=== PATIENT | female | born 1965 | race Caucasian/White ===

== ENCOUNTER → 2017-06-11 | Outpatient (CLI) | payer MEDICARE, BC, MEDICAID, SELFPAY | PROVIDERS: Family Provider Internal Medicine Adolescent Medicine; Visit Provider Anesthesiology Pain Medicine | DX: M25.552 Pain in left hip (principal); R20.2 Paresthesia of skin | CPT/HCPCS: 73502 ==

== ENCOUNTER → 2017-08-20 12:56 | Outpatient (CLI) | payer MEDICARE, BC, MEDICAID, SELFPAY ==
--- NOTE | 2017-08-20 13:05 | MR_ITS ---
MR thoracic spine wo con HISTORY: Back pain from top to bottom. Prior cervical fusion ITS.REASON: POST LAMINECTOMY SYNDROME ORDERING PHYSICIAN: Chinmay Negron MD PATIENT AGE: 52 years COMPARISON: None TECHNIQUE: Standard multiplanar multiecho sequences are performed without contrast. 3-D MIP and myelographic images are also rendered and reviewed FINDINGS: There is normal alignment. There is multilevel degenerative disc disease from T2 to T12 with decrease in the disc spaces, disc desiccation, and multilevel Schmorl's nodes and T7-T12. T2-T3: Degenerative disc disease with mild concentric bulging disc T3-T4: Degenerative disc disease with mild concentric bulging disc. T4-T5 degenerative disc disease. T5-T6: Degenerative disc disease with mild bulging disc. T6-T7: Degenerative disc disease with bulging disc and tiny right paracentral disc protrusion abutting the cord without compression. T7-T8: Mild degenerative disc disease. T8-T9: Degenerative disc disease. T9-T10 T11-T12 and T12-L1 degenerative disc disease. No fracture or dislocation. No bony destructive process. IMPRESSION: 1. Multilevel thoracic spondylosis with degenerative disc disease and mild bulging disc. Please see above for detailed description at each level. 2. Minimal right paracentral disc protrusion at T6-T7 with minimal impingement upon the anterior right aspect of the cord IMPRESSION:
== END ==
PROVIDERS: Family Provider Internal Medicine Adolescent Medicine; PCP Internal Medicine Adolescent Medicine; Visit Provider Anesthesiology Pain Medicine
DX: M96.1 Postlaminectomy syndrome, not elsewhere classified (principal)
CPT/HCPCS: 72146

== ENCOUNTER → 2017-10-09 10:13 | Outpatient (CLI) | payer MEDICARE, BC, MEDICAID, SELFPAY ==
[2017-10-09 10:35] LABS: Basophils % 0.6 % (0.1-2.0); Eosinophils # 0.2 K/mm3 (0.0-0.4); Eosinophils % 3.1 % (0.1-12.0); Hematocrit 44.7 % (37.0-47.0); Hemoglobin 14.7 g/dL (12.2-16.2); Lymphocytes # 1.6 K/mm3 (0.7-4.5); Lymphocytes % 29.2 K/mm3 (10-50); Mean Corpuscular HGB Conc 32.8 g/dL (31.8-35.4); Mean Corpuscular Hemoglobin 28.9 pg (27.0-31.2); Mean Corpuscular Volume 88.2 fl (81-99); Monocytes # 0.4 K/mm3 (0.1-1.0); Monocytes % 6.2 % (1.7-9.3); Neutrophils # 3.4 K/mm3 (1.8-7.8); Platelet Count 290 K/mm3 (142-424); Red Blood Count 5.07 M/mm3 (4.20-5.40); Red Cell Distribution Width 12.7 % (11.5-17.5); White Blood Count 5.6 K/mm3 (4.8-10.8)
[2017-10-09 11:30] LABS: Alanine Aminotransferase 25 U/L (12-78); Albumin Level 3.9 gm/dL (3.4-5.0); Albumin/Globulin Ratio 1.1 (1.1-1.8); Alkaline Phosphatase 63 U/L (46-116); Anion Gap 12.8 mEq/L (5-15); Aspartate Amino Transferase 17 U/L (15-37); Bilirubin,Total 0.4 mg/dL (0.2-1.0); Blood Urea Nitrogen 13 mg/dL (7-18); Calcium 9.2 mg/dL (8.5-10.1); Carbon Dioxide 30 mmol/L (21.0-32.0); Chloride 102 mmol/L (98-107); Chol/HDL Ratio 3.2 (1-3.5); Cholesterol 229 mg/dL (140-200); Creatinine,Serum 0.67 mg/dL (0.55-1.02); Estimated Glomerular Filt Rate 93 ml/min (>60); GFR (African American) 113 ML/MIN (>60); Globulin 3.6 gm/dl (1.3-3.2); Glucose 96 mg/dL (74-106); HDL Cholesterol 72 mg/dL (29-89); LDL Cholesterol 139 mg/dL (0-130); Potassium 4.8 mmoL/L (3.5-5.1); Sodium 140 mmol/L (136-145); Thyroid Stimulating Hormone 1.04 uIU/ml (0.358-3.740); Total Protein,Serum 7.5 gm/dL (6.4-8.2); Triglycerides 91 mg/dL (30-200); Uric Acid 6.5 mg/dL (2.6-7.2); VLDL Cholesterol 18 mg/dL (0-40)
[2017-10-09 14:18] LABS: Erythrocyte Sedimentation Rate 18 mm/hr (0-20)
[2017-10-10 11:03] LABS: RA Latex Turbid. <10.0 IU/mL (0.0-13.9); Vitamin D 25 Hydroxy 27.3 ng/mL (30.0-100.0)
[2017-10-10 21:04] LABS: Antinuclear Antibodies, IFA Negative (.)
[2017-10-12 18:45] LABS: Anti-Cyclic Citrullinated Pept 5 units (0-19)
[2017-10-17 12:33] LABS: HLA-B27 Negative (.)
== END ==
PROVIDERS: Visit Provider Nurse Practitioner Family
DX: M25.50 Pain in unspecified joint (principal); I10 Essential (primary) hypertension; M53.9 Dorsopathy, unspecified
CPT/HCPCS: 36415; 80053; 80061; 82652; 84443; 84550; 85025; 85651; 86038; 86200; 86431; 86812

== ENCOUNTER → 2017-11-27 09:44 | Outpatient (POV) | payer MEDICARE, BC, SELFPAY | PROVIDERS: Family Provider Internal Medicine Adolescent Medicine; PCP Internal Medicine Adolescent Medicine; Visit Provider Dermatology | DX: Z00.00 Encounter for general adult medical examination without abnormal findings (principal) ==

== ENCOUNTER → 2018-03-16 10:56 | Outpatient (CLI) | payer MEDICARE, BC, SELFPAY ==
[2018-03-16 11:59] LABS: Basophils % 0.5 % (0.1-2.0); Eosinophils # 0.1 K/mm3 (0.0-0.4); Eosinophils % 2.4 % (0.1-12.0); Hematocrit 43.7 % (37.0-47.0); Hemoglobin 14.3 g/dL (12.2-16.2); Lymphocytes # 1.5 K/mm3 (0.7-4.5); Lymphocytes % 30.6 K/mm3 (10-50); Mean Corpuscular HGB Conc 32.7 g/dL (31.8-35.4); Mean Corpuscular Hemoglobin 28.8 pg (27.0-31.2); Mean Platelet Volume 7.2 fl (7.4-10.4); Monocytes # 0.3 K/mm3 (0.1-1.0); Monocytes % 6.4 % (1.7-9.3); Neutrophils # 2.9 K/mm3 (1.8-7.8); Neutrophils % 60.1 % (37.0-80.0); Platelet Count 295 K/mm3 (142-424); Red Blood Count 4.97 M/mm3 (4.20-5.40); Red Cell Distribution Width 12.8 % (11.5-17.5); White Blood Count 4.8 K/mm3 (4.8-10.8)
[2018-03-16 13:24] LABS: Alanine Aminotransferase 32 U/L (12-78); Albumin Level 3.9 gm/dL (3.4-5.0); Albumin/Globulin Ratio 1.2 (1.1-1.8); Alkaline Phosphatase 52 U/L (46-116); Anion Gap 13.8 mEq/L (5-15); Aspartate Amino Transferase 15 U/L (15-37); Bilirubin,Total 0.5 mg/dL (0.2-1.0); Blood Urea Nitrogen 10 mg/dL (7-18); Calcium 8.8 mg/dL (8.5-10.1); Carbon Dioxide 28 mmol/L (21.0-32.0); Chloride 104 mmol/L (98-107); Cholesterol 179 mg/dL (140-200); Creatinine,Serum 0.78 mg/dL (0.55-1.02); Estimated Glomerular Filt Rate 78 ml/min (>60); GFR (African American) 95 ML/MIN (>60); Globulin 3.3 gm/dl (1.3-3.2); Glucose 93 mg/dL (74-106); HDL Cholesterol 60 mg/dL (29-89); LDL Cholesterol 94 mg/dL (0-130); Potassium 4.8 mmoL/L (3.5-5.1); Sodium 141 mmol/L (136-145); Thyroid Stimulating Hormone 0.81 uIU/ml (0.358-3.740); Total Protein,Serum 7.2 gm/dL (6.4-8.2); Triglycerides 127 mg/dL (30-200); VLDL Cholesterol 25 mg/dL (0-40)
[2018-03-18 16:48] LABS: Vitamin D 25 Hydroxy 26.4 ng/mL (30.0-100.0)
== END ==
PROVIDERS: PCP Internal Medicine Adolescent Medicine; Visit Provider Nurse Practitioner Family
DX: I10 Essential (primary) hypertension (principal); M54.12 Radiculopathy, cervical region; G89.29 Other chronic pain; K21.9 Gastro-esophageal reflux disease without esophagitis; E55.9 Vitamin D deficiency, unspecified
CPT/HCPCS: 36415; 80053; 80061; 82652; 84443; 85025

== ENCOUNTER → 2018-11-27 13:12 | Outpatient (CLI) | payer MEDICARE, BC, SELFPAY ==
[2018-11-27 17:43] LABS: Amphetamine/Metha Screen,Urine Negative ng/mL (<1000); Barbiturates Screen,Urine Negative ng/mL (<200); Benzodiazepines Screen,Urine Positive ng/mL (<200); Cannabinoid Screen,Urine Negative ng/mL (<50); Cocaine Screen,Urine Negative ng/mL (<300); Methadone Screen,Urine Negative ng/mL (<300); Opiate Screen,Urine Negative ng/mL (<300); Phencyclidine Screen,Urine Negative ng/mL (<25)
== END ==
PROVIDERS: Visit Provider Nurse Practitioner Family
DX: Z79.899 Other long term (current) drug therapy (principal)
CPT/HCPCS: 80305

== ENCOUNTER → 2019-02-01 14:28 | Outpatient (CLI) | payer MEDICARE, BC, SELFPAY | PROVIDERS: PCP Internal Medicine Adolescent Medicine; Visit Provider Nurse Practitioner Family | DX: I10 Essential (primary) hypertension (principal); R40.0 Somnolence; R06.83 Snoring; G47.33 Obstructive sleep apnea (adult) (pediatric) | CPT/HCPCS: G0399 ==

== ENCOUNTER → 2019-02-19 09:02 | Outpatient (CLI) | payer MEDICARE, BC, SELFPAY ==
[2019-02-19 09:27] LABS: Basophils % 0.8 % (0.1-2.0); Eosinophils # 0.2 K/mm3 (0.0-0.4); Hematocrit 41.7 % (37.0-47.0); Hemoglobin 13.6 g/dL (12.2-16.2); Lymphocytes # 1.7 K/mm3 (0.7-4.5); Mean Corpuscular HGB Conc 32.7 g/dL (31.8-35.4); Mean Corpuscular Hemoglobin 28.8 pg (27.0-31.2); Mean Corpuscular Volume 88.2 fl (81-99); Mean Platelet Volume 8.1 fl (7.4-10.4); Monocytes # 0.4 K/mm3 (0.1-1.0); Monocytes % 6.5 % (1.7-9.3); Neutrophils # 3.5 K/mm3 (1.8-7.8); Neutrophils % 59.9 % (37.0-80.0); Platelet Count 286 K/mm3 (142-424); Red Blood Count 4.73 M/mm3 (4.20-5.40); Red Cell Distribution Width 12.5 % (11.5-17.5); White Blood Count 5.8 K/mm3 (4.8-10.8)
[2019-02-19 10:07] LABS: Alanine Aminotransferase 33 U/L (12-78); Albumin Level 3.9 gm/dL (3.4-5.0); Albumin/Globulin Ratio 1.2 (1.1-1.8); Alkaline Phosphatase 55 U/L (46-116); Anion Gap 12.7 mEq/L (5-15); Aspartate Amino Transferase 19 U/L (15-37); Bilirubin,Total 0.5 mg/dL (0.2-1.0); Blood Urea Nitrogen 12 mg/dL (7-18); Calcium 9.2 mg/dL (8.5-10.1); Carbon Dioxide 30 mmol/L (21.0-32.0); Chloride 104 mmol/L (98-107); Chol/HDL Ratio 3.2 (1-3.5); Cholesterol 189 mg/dL (140-200); Creatinine,Serum 0.72 mg/dL (0.55-1.02); Estimated Glomerular Filt Rate 85 ml/min (>60); GFR (African American) 103 ML/MIN (>60); Globulin 3.3 gm/dl (1.3-3.2); Glucose 115 mg/dL (74-106); HDL Cholesterol 60 mg/dL (29-89); LDL Cholesterol 106 mg/dL (0-130); Potassium 4.7 mmoL/L (3.5-5.1); Sodium 142 mmol/L (136-145); Thyroid Stimulating Hormone 1.17 uIU/ml (0.358-3.740); Total Protein,Serum 7.2 gm/dL (6.4-8.2); Triglycerides 116 mg/dL (30-200); VLDL Cholesterol 23 mg/dL (0-40)
[2019-02-20 22:29] LABS: Vitamin D 25 Hydroxy 25.8 ng/mL (30.0-100.0)
== END ==
PROVIDERS: PCP Internal Medicine Adolescent Medicine; Visit Provider Nurse Practitioner Family
DX: I10 Essential (primary) hypertension (principal); R63.5 Abnormal weight gain; R68.2 Dry mouth, unspecified; E55.9 Vitamin D deficiency, unspecified; Z79.899 Other long term (current) drug therapy
CPT/HCPCS: 36415; 80053; 80061; 82652; 83036; 84443; 85025

== ENCOUNTER → 2019-02-23 12:53 | Outpatient (CLI) | payer MEDICARE, BC, SELFPAY | PROVIDERS: PCP Nurse Practitioner Family; Visit Provider Nurse Practitioner Family | DX: I49.9 Cardiac arrhythmia, unspecified (principal) | CPT/HCPCS: 93225; 93226 ==

== ENCOUNTER → 2019-03-17 07:59 | Outpatient (CLI) | payer MEDICARE, BC, SELFPAY ==
[2019-03-17 08:51] LABS: Basophils % 0.7 % (0.1-2.0); Eosinophils # 0.3 K/mm3 (0.0-0.4); Eosinophils % 4.5 % (0.1-12.0); Hematocrit 42.9 % (37.0-47.0); Hemoglobin 13.3 g/dL (12.2-16.2); Lymphocytes # 1.5 K/mm3 (0.7-4.5); Lymphocytes % 26.2 % (10-50); Mean Corpuscular Hemoglobin 27.9 pg (27.0-31.2); Mean Corpuscular Volume 89.9 fl (81-99); Mean Platelet Volume 7.7 fl (7.4-10.4); Monocytes # 0.4 K/mm3 (0.1-1.0); Monocytes % 6.4 % (1.7-9.3); Neutrophils # 3.6 K/mm3 (1.8-7.8); Neutrophils % 62.3 % (37.0-80.0); Platelet Count 285 K/mm3 (142-424); Red Blood Count 4.77 M/mm3 (4.20-5.40); Red Cell Distribution Width 13.6 % (11.5-17.5); White Blood Count 5.7 K/mm3 (4.8-10.8)
[2019-03-17 10:26] LABS: Alanine Aminotransferase 23 U/L (12-78); Albumin Level 3.7 gm/dL (3.4-5.0); Albumin/Globulin Ratio 1.2 (1.1-1.8); Alkaline Phosphatase 56 U/L (46-116); Anion Gap 12.9 mEq/L (5-15); Aspartate Amino Transferase 14 U/L (15-37); Bilirubin,Total 0.3 mg/dL (0.2-1.0); Blood Urea Nitrogen 12 mg/dL (7-18); Calcium 8.9 mg/dL (8.5-10.1); Carbon Dioxide 28 mmol/L (21.0-32.0); Chloride 104 mmol/L (98-107); Cholesterol 166 mg/dL (140-200); Creatinine,Serum 0.68 mg/dL (0.55-1.02); Estimated Glomerular Filt Rate 91 ml/min (>60); Ferritin 249 ng/mL (8-388); GFR (African American) 110 ML/MIN (>60); Globulin 3.2 gm/dl (1.3-3.2); Glucose 117 mg/dL (74-106); HDL Cholesterol 55 mg/dL (29-89); Iron 68 ug/dl (28-170); LDL Cholesterol 91 mg/dL (0-130); Magnesium 1.7 mg/dL (1.4-2.2); Phosphorous 4.1 mg/dL (2.4-4.9); Potassium 4.9 mmoL/L (3.5-5.1); Sodium 140 mmol/L (136-145); Thyroid Stimulating Hormone 0.77 uIU/ml (0.358-3.740); Total Protein,Serum 6.9 gm/dL (6.4-8.2); Triglycerides 101 mg/dL (30-200); VLDL Cholesterol 20 mg/dL (0-40)
[2019-03-17 13:04] LABS: Hemoglobin A1C 6.1 % (0.0-7.0)
[2019-03-20 13:44] LABS: Folate 10.8 ng/mL (>3.0); Parathyroid Hormone Intact 22 pg/mL (15-65); Prealbumin 26 mg/dL (10-36)
[2019-03-20 13:45] LABS: Vitamin B1 165.4 nmol/L (66.5-200.0)
[2019-03-22 01:06] LABS: Vitamin E Alpha Tocopherol 9.3 mg/L (7.0-25.1)
[2019-03-23 07:06] LABS: Vitamin A 41.9 ug/dL (20.1-62.0)
[2019-03-24 08:15] LABS: Methylmalonic Acid 73 nmol/L (0-378)
== END ==
PROVIDERS: Visit Provider Physician Assistant
DX: E74.39 Other disorders of intestinal carbohydrate absorption (principal); E53.8 Deficiency of other specified B group vitamins; I10 Essential (primary) hypertension; E66.01 Morbid (severe) obesity due to excess calories; Z79.899 Other long term (current) drug therapy; Z68.37 Body mass index [BMI] 37.0-37.9, adult; R68.89 Other general symptoms and signs; M62.838 Other muscle spasm
CPT/HCPCS: 36415; 80053; 80061; 82131; 82652; 82728; 82746; 83036; 83540; 83735; 83970; 84100; 84134; 84425; 84443; 84446; 84590; 85025

== ENCOUNTER → 2019-03-23 07:45 | Outpatient (CLI) | payer MEDICARE, BC, SELFPAY ==
--- NOTE | 2019-03-23 | CA_ITS ---
APPROVED REPORT Exam: Exercise Treadmill Technologist: Kaykay Richardson Ht: 5 ft 4 in Wt: 218 lbs BSA: 2.03 m2 HR: 93 bpm BP: 139/80 mmHg Indications: Bigeminy, Chest pain Medical History Medications: Amlodipine,,,,, Diazepam,,,,, Vitamins,,,,, Mobic,,,,, Protonix,,,,, Stress Test Details Test: Hilario HR Resting HR: 95 bpm Max Heart Rate (APMHR): 169 bpm Max HR Achieved: 161 bpm Target HR (85% APMHR): 143 bpm % of APMHR: 95 Recovery HR: 105 bpm BP Resting BP: 139.0/80.0 mmHg Max BP: 156.0/80.0 mmHg Recovery BP: 138.0/81.0 mmHg ECG Clinical Exercise duration: 07:00 min Highest Stage Achieved: Exercise capacity: 10.1 METs Stress ECG Conclusion Resting ECG: Normal sinus rhythm Exercised 7:00 on Hilario Protocol Symptoms: No chest pain Arrhythmias/Ectopy: Rare PVC ST-T Changes: No significant changes. Conclusion: Normal GXT. Myoview images reported separately. Electronically signed by : Cahlo Ledezma, 03/23/2019 19:55:41
--- NOTE | 2019-03-23 07:47 | NM_ITS ---
APPROVED REPORT Exam: Nuclear Stress Test Indication: Abnormal EKG, HTN, DM, Family history Patient Location: Outpatient Stress Tech: Kaykay Richardson HI Tech:Rosa Abdi, ARRT, RT (R)(N) Ht: 5 ft 4 in Wt: 218 lbs Bra Size: 38C HR: 93 bpm BP: 139/80 mmHg BSA: 2.03 m2 BMI: 37.4 History: Abnormal EKG, HTN, DM, Family history Procedure: Patient exercised on Hilario protocol 7:00 minutes and sec, resting heart rate 93 bpm, resting blood pressure 139/80 mmHg, with exercise maximum heart rate achived was 161 bpm which is Greater than 85 % of the maximum predicted heart rate and blood pressure was 156/80 mmHg. Test was stopped due to SOA and faigue. Patient denied any complaint of chest pain. Patient has Good exercise capacity, achieved 10.1 METs of workload on treadmill, the blood pressure response to exercise was Adequate. Electrocardiogram Resting electro cardiogram showed sinus rhythm nonspecific ST-T changes, with exercise there is less than 1.[address] segment depression noted from the baseline EKG. The EKG portion of the exercise Myoview is negative for ischemia. Cardiac Stress and Resting SPECT Images: Cardiac Stress and Resting SPECT images were obtained using technetium 99m Myoview 31.4 mCi stress and 10.12 mCi at rest. Gated SPECT with analysis of segmental wall motion and calculation of the ejection fraction also done. Cardiac stress and resting SPECT images show uniform myocardial activity without segmental perfusion abnormality, computer derived ejection fraction 55% with no regional wall motion abnormality, right ventricle is normal size and contractility. Conclusion: 1. The EKG portion of the exercise Myoview is negative for ischemia, patient has good exercise capacity achieved 10.1 mets of workload on treadmill, the blood pressure response to exercise was adequate, there was no exercise-induced chest discomfort. 2. No scintigraphic evidence of reversible ischemia seen at this level of exercise, computer derived ejection fraction is 55% with no regional wall motion abnormality, right ventricle is normal size and contractility. 3. Normal exercise Myoview study. Electronically signed by : Chalo Ledezma, 03/23/2019 19:57:36
--- NOTE | 2019-03-23 08:04 | HMH.ITSHM ---
Current Home Medications as stated by this patient Juliane Ceballos or merchandising representative. []DIAZEPAM AMLODIPINE MOBIC VITAMINS PROTONIX
== END ==
PROVIDERS: PCP Nurse Practitioner Family; Visit Provider Nurse Practitioner Family
DX: I49.9 Cardiac arrhythmia, unspecified (principal); R07.9 Chest pain, unspecified
CPT/HCPCS: 78452; 93017; A9502

== ENCOUNTER → 2019-04-15 09:36 | Outpatient (CLI) | payer MEDICARE, BC, SELFPAY ==
--- NOTE | 2019-04-15 09:37 | CA_ITS ---
[facility] RADIOLOGICAL CONSULTATION Patient Name : Juliane Ceballos X-RAY # : [id number] Physician: SALLY LEAL AGE: 54Y : 1965 00:00:00 ( F ) Exam : CA ECHO DOPPLER COMPLETE ACC # : [id number] Study Date : 04/15/2019 09:38:21 Patient Class : O FINAL REPORT CLINICAL DATA: FINDINGS: TRANSCRIBED REPORT EXAM: Comprehensive 2D, Doppler, and color-flow Echocardiogram Second Rigger: Sherine Laureano RVT Ht: 5 ft 4 in Wt: 214lbs BSA: 2.01 BP: 140/71 mmHg Indications: Murmur, Shortness of Breath, Diabetes, Hypertension,CORAZON 2D Dimensions LVOT 2.05 cm (M/F) 1.5-2.5 M-Mode Dimensions RVDd 2.55 cm (0.9-2.6) LVDd 4.38 cm (3.5-5.7) LVDs 2.78 cm (3.5-5.7) IVSd 1.18 cm (0.6-1.1) PWd 0.84 cm (0.6-1.1) EF (Teich) 66.60% FS 36.50% EDV (Teich) 86.80 mL ESV (Teich) 29.00 mL LV Diastology E/A Ratio 0.55 Mitral Valve MV A Velocity 74.00 (40-130 cm/s) Electronically signed by : IMPRESSION: Dictated by at Transcribed by at
== END ==
PROVIDERS: PCP Internal Medicine Adolescent Medicine; Visit Provider Nurse Practitioner Family
DX: R06.02 Shortness of breath (principal)
CPT/HCPCS: 93306

== ENCOUNTER → 2020-01-03 14:28 | Outpatient (CLI) | payer MEDICARE, SELFPAY ==
--- NOTE | 2020-01-03 14:40 | XR_ITS ---
PROCEDURE: XR FOOT LT MIN 3V CLINICAL INDICATION: PAIN IN L HEEL COMPARISON: No exams were available for comparison FINDINGS: No fracture or dislocation. No lytic or blastic change. There is normal mineralization. The joint spaces are well-preserved. No significant degenerative/arthritic changes. No erosive changes evident. Other findings:There is a 7 mm calcaneal spur and there is a small enthesophyte at the Achilles insertion IMPRESSION: No acute findings. Dictated by: Philip Jenkins MD 01/03/2020 14:53 Electronically signed by Philip Jenkins MD in [place] 01/03/2020 14:53
== END ==
PROVIDERS: PCP Internal Medicine Adolescent Medicine; Visit Provider Nurse Practitioner Family
DX: M79.672 Pain in left foot (principal)
CPT/HCPCS: 73630

== ENCOUNTER 2020-02-10 13:00 | Outpatient (RCR) | payer MEDICARE, SELFPAY ==
--- NOTE | 2020-02-02 10:44 | HMH.PTOPEV ---
PT Outpatient Evaluation Rehab PT Outpatient Evaluation Start: 02/02/20 10:28 Freq: Status: Active Protocol: Document 02/02/20 10:28 JOSH (Rec: 02/02/20 10:44 JOSH [id number]) Electronically Signed By Joaquin Hernández, PT 02/02/20 10:28 Outpatient Therapy Subjective History Subjective History Patient is a 54 year old female presenting to outpatient PT with reports of chronic L heel pain of insidious onset starting approx 3 months ago. Most recent imaging indicats calcaneal spur. Pt reports pain is worse at night. Comorbidities include hx of LS sx, CS sx and L RTC sx. Chief Complaint Pain Symptom Type Ache,Throb,Tingling Symptoms Relieved By Rest/Positioning,Prescription Meds Symptoms Aggravated By Physical Activity,Walking Prior Functional Limitations None Current Functional Limitations Housework,Standing,Squatting, Recreation Activity,Walking, Stairs,Balance Symptom Description Constant but Variable Level of pain today (0-10) 5 Pain scale - at its best (0-10) 3 Pain scale - at its worst (0-10) 9 Ankle/Foot Eval Gait Observation General Gait Pattern Observation Antalgic Gait,Decrease Weight Bear (L) Palpation Tenderness left Ankle/Foot Palpation Findings Tenderness Ankle/Foot Palpation Overall Comment L distal achilles 3/4 ROM Ankle/Foot Dorsiflexion w/Knee Extended -8 Active Range Motion (degrees) Ankle/Foot Plantar Flexion Active Range WNL of Motion (degrees) Ankle/Foot Eversion Active Range of 20 Motion (degrees) Ankle/Foot Inversion Active Range of 28 Motion (degrees) Ankle/Foot ROM Limitations Soft Tissue Tightness Great Toe ROM Reason Not Measured Within Functional Limits MMT Ankle Dorsiflexion Strength Grade 5 Normal Ankle Plantarflexion Strength Grade 4 Good Foot Eversion Strength Grade 4 Good Foot Inversion Strength Grade 4 Good Special Tests Ankle Anterior Drawer Test Negative Left Ankle Eversion Test Negative Left Foot Interdigital Neuroma Test Negative Left Outpatient Therapy Assessment Impairments Problems/Impairmments Palpation Tenderness,Impaired Range of Motion,Impaired Strength,Impaired Walking, Impaired Standing,Impaired Household Care,Impaired Stair
== END 2020-02-10 14:00 | disposition home or self-care (01) ==
LOC: PT 13:00
PROVIDERS: PCP Internal Medicine Adolescent Medicine; Visit Provider Podiatrist
DX: M76.62 Achilles tendinitis, left leg (principal)
CPT/HCPCS: 97010; 97014; 97033; 97035; 97110; 97163; G0283

== ENCOUNTER → 2020-03-07 10:34 | Outpatient (CLI) | payer MEDICARE, SELFPAY ==
--- NOTE | 2020-03-07 10:39 | XR_ITS ---
PROCEDURE: XR ANKLE WT BEARING LT MIN 3V CLINICAL INDICATION: pain COMPARISON: No exams were available for comparison FINDINGS: No fracture or dislocation. No lytic or blastic change. There is normal mineralization. The joint spaces are well-preserved. No significant degenerative/arthritic changes. No erosive changes evident. Other findings:There is a small calcaneal spur without erosive change in a small enthesophyte at the Achilles insertion. IMPRESSION: No acute finding. Small calcaneal spur and small Achilles enthesophyte Dictated by: Philip Jenkins MD 03/07/2020 18:14 Philip Jenkins MD in [place] 03/07/2020 18:14
== END ==
PROVIDERS: PCP Internal Medicine Adolescent Medicine; Visit Provider Podiatrist
DX: M76.62 Achilles tendinitis, left leg (principal); M77.32 Calcaneal spur, left foot; M89.8X7 Other specified disorders of bone, ankle and foot; M92.62 Juvenile osteochondrosis of tarsus, left ankle
CPT/HCPCS: 73610

== ENCOUNTER → 2020-03-27 13:48 | Outpatient (CLI) | payer MEDICARE, SELFPAY ==
--- NOTE | 2020-03-27 13:55 | MR_ITS ---
PROCEDURE: MR ANKLE LT WO/W CON CLINICAL INDICATION: achilles pain, insertional Achilles tendinitis POSTERIOR ANKLE PAIN. BUMP ON POSTERIOR ASPECT OF ANKLE. [id number]. ANKLE GIVES OUT AFTER ON FEET FOR LONG PERIODS. 14ML PROHANCE GIVEN. LOT:[id number] EXP: JUN 2022 PRIOR X-RAY 03-07-20 COMPARISON: CR XR ANKLE WT BEARING LT MIN 3V from 03/07/2020 TECHNIQUE: Routine multiplanar multi echo sequences are performed without gadolinium enhancement. FINDINGS: No fracture or dislocation is evident. The tibiofibular ligaments are unremarkable. There is some thinning of the ATFL which could be due to sprain or partial tear. PT FL appears intact. Deltoid ligament appears intact. There is a small amount fluid in the ankle joint. Posterior tibialis, flexor tendons, extensor tendons, and peroneal tendons have an unremarkable appearance. Hypertrophic changes are present at the medial malleolus distally. The Achilles tendon has an unremarkable appearance. There is however some slight increased T2 signal in the subcutaneous tissue along the distal posterior and lateral aspect of the Achilles tendon insertion. There does appear to be a small Frances deformity medially with small amount of fluid at this area between the deformity and the Achilles tendon. There is a mild amount of bone marrow edema involving the inferior posterior and lateral aspect of the calcaneus with some minimal enhancement at this area. IMPRESSION: The Achilles tendon appears intact. There does appear to be a small Frances deformity medially with small amount of fluid at this area between the deformity and the Achilles tendon. There is increased T2 signal involving the subcutaneous tissues along the insertional area of the Achilles tendon posteriorly and laterally suggesting some underlying inflammation. There is slight increased T2 signal with minimal enhancement of the calcaneus laterally and at this area as well suggesting underlying inflammation. Thinning of the ATFL suggesting partial tear or sprain. Dictated by: Philip Jenkins MD 04/02/2020 09:58 Philip Jenkins MD in [place] 04/02/2020 09:58
== END ==
PROVIDERS: PCP Internal Medicine Adolescent Medicine; Visit Provider Podiatrist
DX: M21.6X1 Other acquired deformities of right foot (principal); M21.6X2 Other acquired deformities of left foot; M76.62 Achilles tendinitis, left leg; M92.62 Juvenile osteochondrosis of tarsus, left ankle
CPT/HCPCS: 73723

== ENCOUNTER → 2020-04-11 09:27 | Outpatient (CLI) | payer MEDICARE, SELFPAY ==
--- NOTE | 2020-04-11 09:29 | XR_ITS ---
PROCEDURE: XR DEXA AXIAL SKELETON CLINICAL HISTORY: surgical planning Patient is postmenopausal and currently is on calcium and vitamin-D, there is metallic hardware in the lumbar spine COMPARISON: No exams were available for comparison FINDINGS: The total right hip BMD is 1.143 grams/centimeter squared with a T-score of 1.7 the right femoral neck is 1.141 grams/centimeter sq with a T-score of 2.6.. The total left hip BMD is 1.058 grams/centimeter squared with a T-score of 0.9 the left femoral neck is 1.049 grams/centimeter squared with a T-score 1.8.. The left forearm BMD is 0.558 g per cm squared a T-score of -0.4. IMPRESSION: Normal T-scores for bilateral hips and left forearm Based on these results a follow-up exam is recommended in 2 year. Dictated by: Dr. Adria Conner MD 04/11/2020 13:30 Dr. Adria Conner MD in [place] 04/11/2020 13:30
== END ==
PROVIDERS: PCP Internal Medicine Adolescent Medicine; Visit Provider Podiatrist
DX: M19.071 Primary osteoarthritis, right ankle and foot (principal); M19.072 Primary osteoarthritis, left ankle and foot; Z01.818 Encounter for other preprocedural examination; Z78.0 Asymptomatic menopausal state
CPT/HCPCS: 77080

== ENCOUNTER → 2020-05-04 10:07 | Outpatient (CLI) | payer MEDICARE, SELFPAY ==
--- NOTE | 2020-05-04 10:15 | XR_ITS ---
PROCEDURE: XR CHEST 2V CLINICAL HISTORY: HX OF HIGH BLOOD PRESSURE Hypertension COMPARISON: CR CXR CHEST(2 VIEWS-NOT PORTABLE) from 02/22/2014 CR CXR2 CHEST-AP VIEW ONLY from 04/30/2017 FINDINGS: The cardiomediastinal silhouette and pulmonary vascularity are within normal limits. The lungs are clear without infiltrates, suspicious nodules, or pleural effusions. There is a calcified granuloma in the lingula. Lungs are otherwise clear. No acute bony findings. IMPRESSION: No change with no acute finding, old granulomatous disease Dictated by: Philip Jenkins MD 05/04/2020 17:29 Philip Jenkins MD in [place] 05/04/2020 17:29
--- NOTE | 2020-05-04 10:33 | ECG_ITS ---
APPROVED REPORT Exam: Resting ECG HR:72 bpm ECG Measurements Heart Rate 72 AXES TN 144 P 36 QRSd 70 QRS 31 QT 388 T 34 QTc 424 Conclusion Normal sinus rhythm with sinus arrhythmia Late R-wave progression, unchanged from prior Abnormal ECG Electronically signed by : Ruel Levi, 05/04/2020 17:41:49
[2020-05-04 11:54] LABS: Basophils % 0.8 % (0.1-2.0); Eosinophils # 0.1 K/mm3 (0.0-0.4); Hemoglobin 15.4 g/dL (12.2-16.2); Lymphocytes # 1.4 K/mm3 (0.7-4.5); Lymphocytes % 33.6 % (10-50); Mean Corpuscular HGB Conc 34.3 g/dL (31.8-35.4); Mean Corpuscular Hemoglobin 29.3 pg (27.0-31.2); Mean Corpuscular Volume 85.7 fl (81-99); Mean Platelet Volume 7.8 fl (7.4-10.4); Monocytes # 0.3 K/mm3 (0.1-1.0); Monocytes % 6.1 % (1.7-9.3); Neutrophils # 2.4 K/mm3 (1.8-7.8); Neutrophils % 56.4 % (37.0-80.0); Platelet Count 283 K/mm3 (142-424); Red Blood Count 5.25 M/mm3 (4.20-5.40); Red Cell Distribution Width 12.8 % (11.5-17.5); White Blood Count 4.3 K/mm3 (4.8-10.8)
[2020-05-04 12:27] LABS: Hemoglobin A1C 5.3 % (4.0-6.0)
[2020-05-04 12:57] LABS: Alanine Aminotransferase 14 U/L (12-78); Albumin Level 4.8 g/dl (3.5-5.0); Albumin/Globulin Ratio 1.5 (1.1-1.8); Alkaline Phosphatase 60 U/L (38-126); Aspartate Amino Transferase 24 U/L (14-36); Bilirubin,Total 0.6 mg/dl (0.2-1.3); Blood Urea Nitrogen 14 mg/dl (7-17); Calcium 10.2 mg/dl (8.4-10.2); Carbon Dioxide 33 mmol/L (22.0-30.0); Chloride 101 mmol/L (98-107); Chol/HDL Ratio 2.6 (1-3.5); Cholesterol 223 mg/dl (140-200); Estimated Glomerular Filt Rate 105 ml/min (>60); GFR (African American) 127 ML/MIN (>60); Globulin 3.2 g/dL (1.3-3.2); Glucose 90 mg/dl (74-100); HDL Cholesterol 87 mg/dl (40-60); Magnesium 1.8 mg/dl (1.6-2.3); Phosphorous 6.1 mg/dl (2.5-4.5); Sodium 142 mmol/L (136-145); Triglycerides 99 mg/dl (30-150); VLDL Cholesterol 20 mg/dL (0-40)
[2020-05-04 13:23] LABS: Direct LDL Cholesterol 112.16 mg/dL (100-129); Intact Parathyroid Hormone 12.2 pg/mL (7.5-53.5); Iron 97 ug/dL (37-170)
[2020-05-04 13:30] LABS: Thyroid Stimulating Hormone 0.33 uIU/mL (0.465-4.68)
[2020-05-04 13:50] LABS: Ferritin 252 ng/ml (11.1-264)
[2020-05-04 14:16] LABS: Folate > 20.00 ng/mL
[2020-05-05 18:57] LABS: Prealbumin 26 mg/dL (10-36)
[2020-05-10 03:16] LABS: Vitamin B1 127.1 nmol/L (66.5-200.0)
[2020-05-11 17:57] LABS: Methylmalonic Acid 90 nmol/L (0-378)
[2020-05-11 21:03] LABS: Vitamin E Alpha Tocopherol 13.5 mg/L (7.0-25.1)
[2020-05-12 08:59] LABS: Vitamin A 49.9 ug/dL (20.1-62.0); Vitamin E Gamma Tocopherol 0.7 mg/L (0.5-5.5)
[2020-05-13 21:48] LABS: 1,25 Dihydroxy Vitamin D 70 pg/mL (.); 1,25-Dihydroxy, Vitamin D-2 <10 pg/mL (.); 1,25-Dihydroxy, Vitamin D-3 67 pg/mL (.)
== END ==
PROVIDERS: Physician Assistant; PCP Internal Medicine Adolescent Medicine; Visit Provider Podiatrist
DX: M76.62 Achilles tendinitis, left leg (principal); I10 Essential (primary) hypertension; R63.4 Abnormal weight loss; E74.39 Other disorders of intestinal carbohydrate absorption; E53.8 Deficiency of other specified B group vitamins; Z98.890 Other specified postprocedural states; Z79.899 Other long term (current) drug therapy
CPT/HCPCS: 36415; 71046; 80053; 80061; 82131; 82652; 82728; 82746; 83036; 83540; 83735; 83970; 84100; 84134; 84425; 84443; 84446; 84590; 85025; 93005

== ENCOUNTER → 2020-05-31 10:26 | Outpatient (CLI) | payer MEDICARE, SELFPAY ==
[2020-05-31 12:23] LABS: Coronavirus 19 IgG Antibody Negative (Negative); Coronavirus 19 IgM Antibody Negative (Negative)
== END ==
PROVIDERS: Visit Provider Podiatrist
DX: Z01.818 Encounter for other preprocedural examination (principal); Z03.818 Encounter for observation for suspected exposure to other biological agents ruled out; M76.62 Achilles tendinitis, left leg
CPT/HCPCS: 86328

== ENCOUNTER → 2020-06-02 06:09 | Day surgery (SDC) | payer MEDICARE, SELFPAY ==
[2020-05-30 14:04] VITALS: BMI 25.4
[2020-06-02] VITALS (16 sets, daily range): BP systolic 129–157; BP diastolic 66–91; PULSE 83–119; RESP 14–20; TEMP 6.1–43; O2SAT 96–99
--- NOTE | 2020-06-02 | XR_ITS ---
PROCEDURE: XR ANKLE LT 2V CLINICAL INDICATION: Achilles tendon repair COMPARISON: CR XR ANKLE WT BEARING LT MIN 3V from 03/07/2020 FINDINGS: Fluoro time: 23 seconds. Single AP view submitted demonstrates a anchor screw at the lateral malleolar region IMPRESSION: Status post Achilles tendon repair with C-arm guidance Dictated by: Philip Jenkins MD 06/02/2020 10:45 Philip Jenkins MD in [place] 06/02/2020 10:45
--- NOTE | 2020-06-02 07:12 | HMH.OPNOTE ---
Date of procedure: 06/02/20 Pre-op Diagnosis:: 1. Left Achilles tendonitis 2. Left retrocalcaneal exostosis 3. Left gastrocnemius equinus 4. Left ankle synovitis 5. Left chronic ankle instability Post-op Diagnosis:: Same Procedure performed:: 1. Left Achilles debridement and repair 2. Left retrocalcaneal exostectomy 3. Left ankle synovectomy 4. Left modified Brostr?m ankle ligament stabilization 5. Excision of left ankle cyst 6. Left application of tendon graft 7. Left application of posterior splint Surgeon:: Marion Prakash DPM SIGNAL MAINTAINER:: Ruel Dickens Anesthesia: GETA, regional Estimated blood loss (mL): 20 Clinical Note:: Patient has failed conservative care by PCP and by specialist for more than 4-6 months now. Conservative care including: Ice, elevation, topical NSAIDs (unable to take oral due to gastric sleeve), modification of shoe gear, modification of activity, compression therapy, home stretching, immobilization in fracture boot, brace/strapping, heel lifts, formal physical therapy. The physical therapy inflamed the area and made symptoms worse. We explained the surgery in detail. I explained to the patient that postop she will be strict nonweightbearing for 6-8 weeks. I explained swelling and symptoms may last up to 6 months - 1 year following surgery. Patient verbalized understanding that she may be ambulating with the fracture boot for up to 3 months. She will need physical therapy for at least 6-8 weeks after a period of NWB 6-8 weeks after surgery when she does start weightbearing. Medical clearance by her PCP, Susi Partida. Patient has elected to proceed with surgery because they have failed conservative treatment and continue to have pain and worsening symptoms affecting daily activities. The patient has been instructed on the planned procedure, all risk versus benefits of the procedure discussed. These include but are not limited to: bleeding, infection, nerve and blood vessel damage, need for further surgery, delay in healing of soft tissue or bone, failure of bones to heal, non-union, mal-union, failure of the implant, prolonged pain and recovery, CPRS/RSD, DVT and anesthetic complications. No guarantees were given. All questions fully answered. The patient verbalized understanding and agreed to proceed with surgery. Written consent was obtained. Patient denies personal family history of DVT. She does not smoke. We discussed risk of DVT/PE. Patient is low risk, risk factor is prolonged immobilization. Discussed the use of aspirin 81 mg postoperatively. Necessary labs and pre-op testing ordered: CBC, CMP, CXR, EKG, ha1c 5.3%, covid. e-Rx for Percocet 7.5mg, Zofran 4mg, Toradol given. Operative findings:: Left Achilles tendon had some thickness distally with fibrotic degenerative changes. Large Frances's deformity noted. Bone quality soft. ATFL intact but attenuated, positive anterior ankle drawer. There was a cyst noted to the peroneal tendon sheath on the lateral posterior ankle. No obvious peroneal tendon tear. Operative note:: On this date and time patient was deemed an appropriate surgical candidate. Anesthesia performed a pre-op regional popliteal nerve block. With informed consent signed, the patient was taken to the operating theater. The patient was positioned supine. General anesthesia was induced. Tourniquet was applied to the left thigh at 250 mmHg. Patient positioned prone and the left lower extremity was prepped and draped in normal sterile fashion. Left Achilles debridement and repair, retrocalcaneal exostectomy, synovectomy: Attention was directed to the posterior leg where a longitudinal incision was marked out over the heel prominence. Dissection was carried down in layered fashion with care to preserve neurovascular structures. Achilles tendon was transected linearly and there was fibrotic changes with degeneration noted. It was sharply excised and sent to pathology as a specimen. The posterior ankle was then expose
--- NOTE | 2020-06-02 10:00 | XR_ITS ---
PROCEDURE: XR ANKLE LT MIN 3V CLINICAL INDICATION: Post op calc Follow-up surgery COMPARISON: CR XR ANKLE WT BEARING LT MIN 3V from 03/07/2020 CR XR ANKLE LT 2V from 06/02/2020 FINDINGS: There is a posterior splint in place. There has been a osteotomy the posterior aspect of the calcaneus. Postsurgical gas is present in Kager's fat pad region. There is good alignment. An anchor screw is present within the distal fibula. IMPRESSION: Postsurgical changes as detailed above Dictated by: Philip Jenkins MD 06/02/2020 10:40 Philip Jenkins MD in [place] 06/02/2020 10:40
--- NOTE | 2020-06-02 10:19 | P.PN_ITS ---
[facility] Anesthesia Checklist - Patient Identification Patient Identification: Arm Band, Verbal (Name & ) - Structural Data Admitted From: Home Planned Operative Procedure/s: ankle Verified Documents: History and Physical - NPO Status Verified Time NPO: 00:00 - Chart Verification Results Verified: CBC, BMP - Additional verifications Patient : No Anesthesia Reactions: Yes (trouble waking up , nausea) Hx Blood Transfusions: No Blood Transfusion Reaction: No Cephalosporin Allergy: No Previous Colonoscopy: Yes - Cardiovascular Assessment Heart Sounds: S1 & S2 Pulse Strength: Baseline Pulse Rhythm: Regular Peripheral Edema: No - Airway Assessment C-Spine Mobility Assessed: Yes TMJ Mobility Assessed: Yes Dentition: Partials - Neurological Assessment Level of Consciousness: Awake, Alert, Appropriate Hx Seizures: No Numbness or tingling in extremities: No - Anesthesia Plan Anesthesia Risk discussed: Yes Anesthesia Plan: Verified ASA Class: III Anesthesia Type: General w/block [facility] History I have reviewed the patient's past medical history: Yes Medical History: Reports:: Heart Murmur, Hypertension, Migraine Denies:: Anxiety, Cancer, Depression, Diabetes Mellitus Type 1, Diabetes Mellitus Type 2, Internal Pacemaker, MRSA, Seizures, Transient Ischemic Attacks (TIA) *Have you ever received a pneumonia vaccine?: No *Have you received a flu vaccine this season?: Yes Other Medical History: Reports: Arthritis, Other. Denies: Blood Transfusion Reaction Anesthesia experience/problems:: none Laterality Cases: Left: Arthroscopy Shoulder, Bilateral: Other Other Surgeries: Yes: Bariatric Surgery, Cardiac Catheterization, Colonoscopy, Hysterectomy-Total, Hysterectomy-Partial, Plastic Surgery, Tubal Ligation, Other. No: Pacemaker Amputation: No Fractures: Yes - *Social History Last grade of school completed: High school graduate Smoking Status: Never smoker Alcohol Intake: never Alcohol Intake Frequency:: other Substance Use Type: denies use *Occupational Status:: employed Housing: house Household Members: spouse *Travel in the last 8 weeks: None - Psychiatric History Pschychiatric History:: Denies:: Anxiety, Depression Family Hx:: Asthma, Cancer, Diabetes, Heart Attack, Hyperlipidemia, Hypertension
--- NOTE | 2020-06-02 10:20 | HMH.ANESI ---
[facility] Anesthesia Record Part I Intake, IV Amount: 900 Estimated blood loss (mL): 10 Urine output (mL): 0 Blood Products used (#): none Blood Pressure: 144/82 SaO2: 97 Pulse Rate: 117 Respiratory Rate: 20 Temperature: 98.1 F Patient is:: Drowsy, Stable Stable to PACU at:: 10:15
--- NOTE | 2020-06-02 13:22 | P.PN_ITS ---
[facility] Anesthesia Record Part II Discharge Time: 10:45 Destination: Surgical Day Care (OP Surgery) PACU nurse assessment reviewed?: Yes Patient Condition:: Good Anesthesia Complications:: None Swallowing reflex intact?: Yes Cyanosis?: No Blood Pressure: 157/86 Pulse Rate: 118 Temperature: 98.2 F Mental Status: Alert & Oriented Pain level:: 0 Nausea and/or vomitting:: None Intake, IV Amount: 35
== END ==
PROVIDERS: PCP Internal Medicine Adolescent Medicine; Visit Provider Podiatrist
PROC: (CPT 28120; principal; 2020-06-02 07:30)
DX: M76.62 Achilles tendinitis, left leg (principal); M25.372 Other instability, left ankle; M77.32 Calcaneal spur, left foot; M21.6X2 Other acquired deformities of left foot; M65.872 Other synovitis and tenosynovitis, left ankle and foot; M67.874 Other specified disorders of tendon, left ankle and foot; M92.9 Juvenile osteochondrosis, unspecified
CPT/HCPCS: 27650; 27698; 28120; C5275; 73600; 73610; 76000; 88305; 96374; C1713; C1762; J2405; Q4211

== ENCOUNTER 2020-06-22 19:03 | Emergency (ER) | payer MEDICARE, SELFPAY ==
[2020-06-22 19:05] VITALS: BP 139/85; PULSE 108; RESP 16; TEMP 36.6; O2SAT 98; BMI 25.7
--- NOTE | 2020-06-22 19:30 | XR_ITS ---
PROCEDURE: XR ANKLE LT MIN 3V CLINICAL INDICATION: had fall after recent surgery COMPARISON: No exams were available for comparison FINDINGS: There are postsurgical changes of the calcaneus. There is a small metallic surgical anchor in the lateral malleolus. There is a tiny bone fragment with smooth borders adjacent to the medial malleolus probably due to old injury there is mild diffuse soft tissue swelling laterally. The ankle mortise appears normal. There is a small enthesophyte of the calcaneus at the insertion of the plantar tendon. IMPRESSION: Postsurgical change of the calcaneus, mild soft tissue swelling laterally, no acute fracture seen Dictated by: Dr. Adria Conner MD 06/23/2020 09:44 Dr. Adria Conner MD in [place] 06/23/2020 09:44
--- NOTE | 2020-06-22 19:31 | XR_ITS ---
PROCEDURE: XR FOOT LT MIN 3V CLINICAL INDICATION: had fall after recent surgery COMPARISON: CR XR FOOT LT MIN 3V from 01/03/2020 FINDINGS: Postsurgical change of the calcaneus is seen partial surgical resection of the posterior aspect of the calcaneus. There is a small spur of the calcaneus at the insertion of the plantar tendon the tarsal bones metatarsals and phalanges appear intact no acute fracture seen. There is mild diffuse soft tissue swelling about the ankle and hindfoot. IMPRESSION: No acute osseous findings. Dictated by: Dr. Adria Conner MD 06/23/2020 10:31 Dr. Adria Conner MD in [place] 06/23/2020 10:31
--- NOTE | 2020-06-22 19:37 | CT_ITS ---
PROCEDURE: CT ANKLE LT WO CON CLINICAL HISTORY: post op pain fell off the orthopedic scooter she has used since the surgery for Achilles tendon repair COMPARISON: No exams were available for comparison TECHNIQUE: Axial images obtained with sagittal and coronal reformats. All CT scans at the facility use one or more dose reduction, viz: automated exposure control, ma/kV adjustment per patient size (including targeted exams where dose is matched to indication, i.e. head), or iterative reconstruction technique. FINDINGS: There has been osteotomy through the posterior aspect of the calcaneus with tiny bony debris in the soft tissues just immediately posterior to the osteotomy site. There are 2 radiolucent tunnels apparently driven into the osteotomy site transversely oriented and likely representing anchors for the Achilles tendon repair. There are tiny bone fragments just inferior to the medial malleolus probably due to old injuries. There is metallic surgical tack in the distal fibula. The ankle mortise appears grossly normal. The tarsal bones metatarsals and phalanges all appear intact. There is mild thickening of the distal Achilles tendon just proximal to the surgical attachment to the calcaneus. There is a moderate-sized enthesophyte at the base of the calcaneus at the insertion of the plantar tendon. IMPRESSION: Postsurgical changes with osteotomy of the calcaneus with what appears to be some bony debris immediately posterior to the osteotomy site with mild thickening of the Achilles tendon, no acute re-injury of the Achilles identified. Dictated by: Dr. Adria Conner MD 06/24/2020 14:06 Dr. Adria Conner MD in [place] 06/24/2020 14:06
[2020-06-22 20:05] VITALS: BP 136/84; PULSE 93; RESP 16; O2SAT 97
--- NOTE | 2020-06-22 20:30 | HMH.EDGENADL ---
ED Disposition Clinical Impression: Strain of Achilles tendon Qualifiers: Encounter type: initial encounter Laterality: left Qualified Code(s): S86.012A - Strain of left Achilles tendon, initial encounter Disposition: Home, Self-Care Condition on Discharge: Good Additional Instructions: Continue your current treatment with boot and scooter. Call Dr. Prakash's office and arrange earliest available appointment for follow-up. Referrals: Ruel Levi MD [Primary Care Provider] - - Critical Care Critical Care Time: No Attestation: On 06/22/20, the high probability of a clinically significant, sudden or life threatening deterioration of the following system(s) required my full and direct attention, intervention and personal management. The time I documented below is in addition to time spent performing reported procedures but includes the following listed in this critical care notation. Medical Decision Making - Maxime Inquiry Pt receiving controlled substance: No Vital Signs: 06/22/20 19:05 Temperature 97.8 F Temperature Source Oral Pulse Rate [Left Radial] 108 H Respiratory Rate 16 Blood Pressure [Right Arm] 139/85 Blood Pressure Mean [Right Arm] 103 Blood Pressure Source [Right Arm] Automatic Cuff Blood Pressure Position [Right Arm] Sitting 02 Sat by Pulse Oximetry 98 Oxygen Delivery Method Room Air Orders (Tests/Meds): ORDERS Category Date Time Status CT ankle LT wo con Stat Cat Scan 06/22/20 19:37 Taken Ankle XR - Left minimum 3 Views [XR ankle LT min 3V] Exams 06/22/20 19:30 Taken Stat XR foot LT min 3V Stat Exams 06/22/20 19:31 Taken - Radiology Data #1 Image(s): Ankle, Foot/Toes Image Reviewed: Yes I reviewed the patient's radiology image post-surgical changes. No acute fracture or dislocation. - CT Data CT Scan: Other (ankle) Time Received: 20:40 ([facility] fax) ED CT Reviewed: Yes: I have viewed the radiologist's interpretation Findings Narrative: Osteotomy posterior calcaneus. Tiny calcifications or bony fragments in the posterior soft tissues here and limited infiltrative fluid, probably all chronic. No acute fracture is seen here or elsewhere. There is some thickening and tendinosis of the distal fibers of the Achilles tendon without CT evidence of retracted tear. General Adult HPI - General Chief complaint: Extremity Injury, Lower Stated complaint: AO 06/22@1615 surg 06/02 L foot,fell re-injured Time Seen by Provider: 06/22/20 20:10 Mode of Arrival: Ambulatory Limitations: No Limitations Description of Symptoms (Recalled from ER Triage Doc. by RN): Pt had sx on left foot 06/02/20 and today she states her scooter went out from under her and she landed on her surgically repair foot. She reports no other injuries and her complaint is her left foot feels funny and tingles. - History of Present Illness HPI narrative: Complains of injury to her left foot. She had surgery by Dr. Prakash on June 02. She is in a boot and on a rolling scooter. Her scooter went out from under her today causing her to injure her left foot. She says that her left heel feels uncomfortable, feels different than it did prior to the injury so she wants to make sure everything is still okay. - Related Data Home Medications Medication Instructions Recorded Confirmed diazepam 5 mg tablet 5 mg PO BID PRN tab 04/12/19 06/19/20 cholecalciferol (vitamin D3) 250 250 mcg PO BID 01/25/20 06/19/20 mcg (10,000 unit) capsule multivitamin,[id number] 1 tab PO DAILY 01/25/20 06/19/20 vitamin A 2,500 unit-vit C 100 1 cap PO DAILY cap 05/04/20 06/19/20 mg-biotin 2,500 mah-xbrk-rbxtap capsule Biotin 1 tab PO BID 05/30/20 06/19/20 Previous Rx's Medication Instructions Recorded diclofenac sodium 1 % topical gel 4 g TOPICAL QID PRN #30 g 01/25/20 ketorolac 10 mg tablet 10 mg PO Q6H PRN 5 Days #20 tab 06/02/20 ondansetron 4 mg disintegrating 4 mg PO Q6H PRN 7 Days #30 tab
[2020-06-22 21:03] VITALS: BP 136/84; PULSE 93; RESP 16; TEMP 36.6; O2SAT 97
== END 2020-06-22 21:07 | disposition home or self-care (01) ==
PROVIDERS: Emergency Provider Emergency Medicine; PCP Internal Medicine Adolescent Medicine
DX: S86.012A Strain of left Achilles tendon, initial encounter (principal); V00.141A Fall from scooter (nonmotorized), initial encounter; Y92.019 Unspecified place in single-family (private) house as the place of occurrence of the external cause; E11.9 Type 2 diabetes mellitus without complications; I10 Essential (primary) hypertension
CPT/HCPCS: 73610; 73630; 73700; 99282

== ENCOUNTER → 2020-09-08 09:38 | Outpatient (CLI) | payer MEDICARE, SELFPAY ==
[2020-09-08 10:28] LABS: Basophils # 0.1 K/mm3 (0-0.2); Basophils % 1.2 % (0.1-2.0); Eosinophils # 0.2 K/mm3 (0.0-0.4); Eosinophils % 4.5 % (0.1-12.0); Hematocrit 43.3 % (37.0-47.0); Lymphocytes # 1.3 K/mm3 (0.7-4.5); Lymphocytes % 34.4 % (10-50); Mean Corpuscular HGB Conc 32.5 g/dL (31.8-35.4); Mean Corpuscular Hemoglobin 28.8 pg (27.0-31.2); Mean Corpuscular Volume 88.8 fl (81-99); Mean Platelet Volume 7.9 fl (7.4-10.4); Monocytes # 0.2 K/mm3 (0.1-1.0); Monocytes % 5.7 % (1.7-9.3); Neutrophils # 2.1 K/mm3 (1.8-7.8); Neutrophils % 54.2 % (37.0-80.0); Platelet Count 251 K/mm3 (142-424); Red Blood Count 4.87 M/mm3 (4.20-5.40); Red Cell Distribution Width 12.6 % (11.5-17.5); White Blood Count 3.9 K/mm3 (4.8-10.8)
[2020-09-08 10:44] LABS: Hemoglobin A1C 5.3 % (4.0-6.0)
[2020-09-08 11:53] LABS: 25-OH Vitamin D, Total 40.3 ng/mL (30-100)
[2020-09-08 11:55] LABS: Alanine Aminotransferase 10 U/L (12-78); Albumin Level 4.6 g/dl (3.5-5.0); Albumin/Globulin Ratio 1.8 (1.1-1.8); Alkaline Phosphatase 59 U/L (38-126); Anion Gap 11.1 mEq/L (5-15); Aspartate Amino Transferase 22 U/L (14-36); Bilirubin,Total 0.5 mg/dl (0.2-1.3); Blood Urea Nitrogen 11 mg/dl (7-17); Calcium 9.7 mg/dl (8.4-10.2); Carbon Dioxide 30 mmol/L (22.0-30.0); Chloride 104 mmol/L (98-107); Chol/HDL Ratio 2.7 (1-3.5); Cholesterol 211 mg/dl (140-200); Estimated Glomerular Filt Rate 105 ml/min (>60); GFR (African American) 127 ML/MIN (>60); Globulin 2.5 g/dL (1.3-3.2); Glucose 94 mg/dl (74-100); HDL Cholesterol 79 mg/dl (40-60); Iron 109 ug/dL (37-170); Magnesium 1.8 mg/dl (1.6-2.3); Phosphorous 5.6 mg/dl (2.5-4.5); Potassium 5.1 mmoL/L (3.5-5.1); Sodium 140 mmol/L (136-145); Total Protein,Serum 7.1 g/dl (6.3-8.2); Triglycerides 126 mg/dl (30-150); VLDL Cholesterol 25 mg/dL (0-40)
[2020-09-08 12:06] LABS: Direct LDL Cholesterol 92.12 mg/dL (100-129)
[2020-09-08 12:07] LABS: Intact Parathyroid Hormone 15.6 pg/mL (7.5-53.5)
[2020-09-08 12:26] LABS: Thyroid Stimulating Hormone 0.37 uIU/mL (0.465-4.68)
[2020-09-08 12:30] LABS: Ferritin 178 ng/ml (11.1-264)
[2020-09-09 13:43] LABS: Prealbumin 25 mg/dL (10-36)
[2020-09-15 14:00] LABS: Vitamin B1 134.3 nmol/L (66.5-200.0)
[2020-09-15 15:44] LABS: Methylmalonic Acid 81 nmol/L (0-378)
[2020-09-15 18:03] LABS: Vitamin A 41.4 ug/dL (20.1-62.0)
[2020-09-15 19:16] LABS: Vitamin E Alpha Tocopherol 13.7 mg/L (7.0-25.1)
[2020-09-16 04:31] LABS: Vitamin E Gamma Tocopherol 0.7 mg/L (0.5-5.5)
== END ==
PROVIDERS: Visit Provider Physician Assistant
DX: E53.8 Deficiency of other specified B group vitamins (principal); E55.9 Vitamin D deficiency, unspecified; E11.9 Type 2 diabetes mellitus without complications; I10 Essential (primary) hypertension; R01.1 Cardiac murmur, unspecified; Z98.84 Bariatric surgery status; Z79.899 Other long term (current) drug therapy
CPT/HCPCS: 36415; 80053; 80061; 82131; 82306; 82728; 82746; 83036; 83540; 83735; 83970; 84100; 84134; 84425; 84443; 84446; 84590; 85025

== ENCOUNTER 2020-09-14 10:00 | Outpatient (RCR) | payer MEDICARE, SELFPAY ==
--- NOTE | 2020-07-18 10:39 | HMH.PTOPEV ---
PT Outpatient Evaluation Rehab PT Outpatient Evaluation Start: 07/18/20 10:03 Freq: Status: Active Protocol: Document 07/18/20 10:28 BETHANY (Rec: 07/18/20 10:39 BETHANY [id number]) Electronically Signed By Micky Ryan, PT 07/18/20 10:28 Outpatient Therapy Subjective History Subjective History Pt is 55 yowf who presents with expected post-op changes S/P L ankle surgery with achilles tendon repair on 04/2020. SHe reports mild swelling and c/o tingling sensation in the L foot. She has been NWB in cam walker, but is clear to begin weaning the boot with ankle brace and increasing WB'ing. She reports PMH of DM-II, HTN, Migraine, ALLIE, and Bariatric surgery. Chief Complaint Stiff,Weakness Symptom Type Tingling Symptoms Relieved By Rest/Positioning Symptoms Aggravated By Physical Activity Prior Functional Limitations None Current Functional Limitations Standing,Recreation Activity, Walking Symptom Description Intermittent,Activity Dependent Level of pain today (0-10) 0 Pain scale - at its worst (0-10) 3 Ankle/Foot Eval Assistive Device Ambulation Assistive Device Axillary Crutches Palpation Tenderness left Ankle/Foot Palpation Findings Tenderness Ankle/Foot Palpation Overall Comment lateral ankle ROM Ankle/Foot Dorsiflexion w/Knee Extended 0 Active Range Motion (degrees) Ankle/Foot Plantar Flexion Active Range 0-47 of Motion (degrees) Ankle/Foot Eversion Active Range of 0-7 Motion (degrees) Ankle/Foot Inversion Active Range of 0-13 Motion (degrees) MMT Ankle Dorsiflexion Strength Grade 3+ Fair+ Ankle Plantarflexion Strength Grade 3+ Fair+ Foot Eversion Strength Grade 3+ Fair+ Foot Inversion Strength Grade 3+ Fair+ Outpatient Therapy Assessment Impairments Problems/Impairmments Palpation Tenderness,Impaired Range of Motion,Impaired Strength,Impaired Gait Pattern ,Impaired Walking,Impaired Standing,Impaired Recreational Activities,Increased Edema, Subjective C/O Pain,Impaired Self Care/Self Management Prognosis Rehab Potential Good Clinical Impression Consistent with Diagnosis Yes Short Term Goals N
--- NOTE | 2020-08-17 11:29 | HMH.RHREAS ---
Rehab Reassessment Rehab OP Re-assessment Start: 08/17/20 11:25 Freq: Status: Active Protocol: Document 08/17/20 11:26 BETHANY (Rec: 08/17/20 11:29 BETHANY [id number]) Electronically Signed By Micky Ryan, PT 08/17/20 11:26 Rehab Re-assessment Subjective Subjective Pt reports she has much less pain and is walking much better without an AD now. Objective Objective Notes L ankle AROM: DF= 0-5 deg, PF= 0-30 deg, INV= 0-20 deg, EVER = 0-15 deg. Assessment Progress Assessment Progressing as Expected Assessment Notes Pt with significantly less antalgic gait pattern and no longer using AD for ambulation , AROM has significantly improved since initial evaluation. Patient goals met ST,2,3,4,5,6 Goals Not Met LT,2,3,4,5,6 Revised Goals none Plan Plan Continue per initial POC. Frequency of Therapy 2-3 x/wk Duration of therapy 8 wks Time and Billing Re-Eval Time 15 Re-Eval Billing Units 1 PHYSICIAN CERTIFICATION: I certify the specified therapy services for Juliane Ceballos are required, authorized, and reviewed every 30 days.
== END 2020-09-14 10:05 | disposition home or self-care (01) ==
LOC: PT 10:00
PROVIDERS: PCP Internal Medicine Adolescent Medicine; Visit Provider Podiatrist
DX: M76.62 Achilles tendinitis, left leg (principal); M92.62 Juvenile osteochondrosis of tarsus, left ankle
CPT/HCPCS: 97010; 97014; 97110; 97112; 97140; 97163; 97164; G0283

== ENCOUNTER → 2020-10-23 10:27 | Outpatient (CLI) | payer MEDICARE, SELFPAY ==
--- NOTE | 2020-10-23 10:32 | XR_ITS ---
PROCEDURE: XR ANKLE WT BEARING LT MIN 3V LEFT FOOT WEIGHT-BEARING MINIMUM THREE VIEWS CLINICAL INDICATION: postop COMPARISON: CR XR ANKLE WT BEARING LT MIN 3V from 03/07/2020 CR XR ANKLE LT 2V from 06/02/2020 CR XR ANKLE LT MIN 3V from 06/02/2020 CR XR ANKLE LT MIN 3V from 06/22/2020 CR XR FOOT WT BEARING LT 3V from 10/23/2020 FINDINGS: Left ankle and foot: There are postsurgical changes with a anchor screw within the lateral malleolar region. Status post osteotomy of the posterior aspect of the calcaneus. There is some minimal heterotopic ossification along the posterior and superior aspect of the calcaneus. Calcaneal spur is present. Minimal bony debris along the posterior aspect of the osteotomy site superiorly. Small well-circumscribed calcific density is present at the tip of the lateral malleolus. IMPRESSION: Postsurgical changes of the calcaneus and lateral malleolus as described above. Dictated by: Philip Jenkins MD 10/23/2020 11:36 Philip Jenkins MD in [facility] 10/23/2020 11:36
== END ==
PROVIDERS: PCP Internal Medicine Adolescent Medicine; Visit Provider Podiatrist
DX: Z98.890 Other specified postprocedural states (principal)
CPT/HCPCS: 73610; 73630

== ENCOUNTER 2020-12-06 22:20 | Emergency (ER) | payer MEDICARE, SELFPAY ==
[2020-12-06 22:31] VITALS: BP 139/79; PULSE 95; RESP 16; TEMP 36.9; O2SAT 99; BMI 27.4
[2020-12-07 00:21] LABS: Basophils % 0.6 % (0.1-2.0); Eosinophils # 0.2 K/mm3 (0.0-0.4); Eosinophils % 2.2 % (0.1-12.0); Hematocrit 40.7 % (37.0-47.0); Hemoglobin 14.2 g/dL (12.2-16.2); Lymphocytes # 2.2 K/mm3 (0.7-4.5); Lymphocytes % 31.6 % (10-50); Mean Corpuscular HGB Conc 34.9 g/dL (31.8-35.4); Mean Corpuscular Hemoglobin 28.9 pg (27.0-31.2); Mean Corpuscular Volume 82.7 fl (81-99); Mean Platelet Volume 8.1 fl (7.4-10.4); Monocytes # 0.4 K/mm3 (0.1-1.0); Monocytes % 5.5 % (1.7-9.3); Neutrophils # 4.1 K/mm3 (1.8-7.8); Neutrophils % 60.1 % (37.0-80.0); Platelet Count 290 K/mm3 (142-424); Red Blood Count 4.92 M/mm3 (4.20-5.40); White Blood Count 6.8 K/mm3 (4.8-10.8)
[2020-12-07 00:26] LABS: Alanine Aminotransferase 15 U/L (12-78); Albumin Level 4.6 g/dl (3.5-5.0); Albumin/Globulin Ratio 1.5 (1.1-1.8); Alkaline Phosphatase 68 U/L (38-126); Anion Gap 11.7 mEq/L (5-15); Aspartate Amino Transferase 28 U/L (14-36); Bilirubin,Total 0.6 mg/dl (0.2-1.3); Blood Urea Nitrogen 9 mg/dl (7-17); Carbon Dioxide 27 mmol/L (22.0-30.0); Chloride 105 mmol/L (98-107); Creatinine Clearance Estimated 149 mL/min (50-200); Estimated Glomerular Filt Rate 129 ml/min (>60); GFR (African American) 156 ML/MIN (>60); Glucose 131 mg/dl (74-100); Potassium 3.7 mmoL/L (3.5-5.1); Sodium 140 mmol/L (136-145); Total Protein,Serum 7.6 g/dl (6.3-8.2)
[2020-12-07 00:32] LABS: C-Reactive Protein 1.4 mg/L (0-4)
--- NOTE | 2020-12-07 00:41 | HMH.EDBACK ---
ED Disposition Clinical Impression: Lumbar radiculopathy Disposition: Home, Self-Care Condition on Discharge: Good Instructions: DI for Low Back Pain Additional Instructions: see pcp in am Referrals: Ruel Levi MD [Primary Care Provider] - - Critical Care Critical Care Time: No Attestation: On 12/06/20, the high probability of a clinically significant, sudden or life threatening deterioration of the following system(s) required my full and direct attention, intervention and personal management. The time I documented below is in addition to time spent performing reported procedures but includes the following listed in this critical care notation. Medical Decision Making - Medical Records Medical records reviewed: Yes: I reviewed the patient's medical records. - Maxime Inquiry Pt receiving controlled substance: No Vital Signs: 12/06/20 22:31 Temperature 98.5 F Temperature Source Oral Pulse Rate [Right] 95 H Respiratory Rate 16 Blood Pressure [Right Arm] 139/79 Blood Pressure Mean [Right Arm] 99 Blood Pressure Source [Right Arm] Automatic Cuff Blood Pressure Position [Right Arm] Sitting 02 Sat by Pulse Oximetry 99 Oxygen Delivery Method Room Air Oxygen Flow Rate (LPM) 99 - Lab Data Lab results reviewed: Yes: I reviewed the patient's lab results. Lab Results 12/07/20 00:00: WBC 6.8, RBC 4.92, Hgb 14.2, Hct 40.7, MCV 82.7, MCH 28.9, MCHC 34.9, RDW 13.0, Plt Count 290, MPV 8.1, Neut % (Auto) 60.1, Lymph % (Auto) 31.6, [place] % (Auto) 5.5, Eos % (Auto) 2.2, Baso % (Auto) 0.6, Neut # (Auto) 4.1, Lymph # (Auto) 2.2, [place] # (Auto) 0.4, Eos # (Auto) 0.2, Baso # (Auto) 0.0 12/07/20 00:00: Sodium 140, Potassium 3.7, Chloride 105, Carbon Dioxide 27, Anion Gap 11.7, BUN 9, Creatinine 0.50 L, Estimated Creat Clear 149, Estimated GFR 129, Est GFR ( Amer) 156, Glucose 131 H, Calcium 9.0, Total Bilirubin 0.6, AST 28, ALT 15, Alkaline Phosphatase 68, C-Reactive Protein 1.4, Total Protein 7.6, Albumin 4.6, Globulin 3.0, Albumin/Globulin Ratio 1.5 Result diagrams: 12/07/20 00:00 12/07/20 00:00 Orders (Tests/Meds): ED MEDICATIONS Discontinued Medications Generic Name Dose Route Start Last Admin Trade Name Clif PRN Reason Stop Dose Admin Ketorolac Tromethamine 30 mg 12/07/20 00:10 12/07/20 00:13 Ketorolac 30mg/Ml Vial IV 12/07/20 00:11 30 mg ONCE ONE Administration Methylprednisolone Sodium Succinate 125 mg 12/07/20 00:10 12/07/20 00:13 Methylprednisolone Sod Succ 125mg Vial IV 12/07/20 00:11 125 mg ONCE ONE Administration ORDERS Category Date Time Status CT lumbar spine wo con Stat Cat Scan 12/07/20 00:08 Ordered Complete Blood Count Auto Diff Stat Lab 12/07/20 00:00 Results Erythrocyte Sedimentation Rate Stat Lab 12/07/20 00:00 Results Medical Decision Narrative: has lumbar radicular pain and improved and has appt in am Back Pain HPI - General Chief Complaint: Back Pain/Injury Stated Complaint: lower back pain Time Seen by Provider: 12/07/20 00:00 Mode of Arrival: Ambulatory Source of Information: Patient, Medical Record Limitations: No Limitations Description of Symptoms (Recalled from ER Triage Doc. by RN): c/o pain to left side of left lower back that radiates down the left leg.reports pain increasing over last couple of weeks, reports pain much worse today. Reports two previous back fusion surgery. States pain so bad that she was sick at her stomach. Reports taking diluadid 2 mg, (meds left over from previous surgery) and tylenol x 2. - History of Present Illness HPI Narrative: acute lt side back pain with hx of back surg with no fever/rash or trauma / no cauda equina sx - took left over pain med but no relief - has appt in am with pcp Complaint: back pain Onset (ago): hour(s) Duration: constant Similar Symptoms Previously: Yes Location: lumbar spine Severity: moderate Radiation: left leg Associated symptoms: denies other symptoms
[2020-12-07 00:52] VITALS: BP 134/74; PULSE 92; RESP 16; TEMP 36.9; O2SAT 99
[2020-12-07 01:05] LABS: Erythrocyte Sedimentation Rate 16 mm/hr (0-30)
== END 2020-12-07 00:54 | disposition home or self-care (01) ==
PROVIDERS: Emergency Provider Emergency Medicine; PCP Internal Medicine Adolescent Medicine
DX: M54.16 Radiculopathy, lumbar region (principal); E11.9 Type 2 diabetes mellitus without complications; R01.1 Cardiac murmur, unspecified; F41.8 Other specified anxiety disorders; I10 Essential (primary) hypertension; Z79.899 Other long term (current) drug therapy
CPT/HCPCS: 80053; 85025; 85651; 86140; 96374; 96375; 99282

== ENCOUNTER 2020-12-11 21:29 | Emergency (ER) | payer MEDICARE, SELFPAY ==
[2020-12-11 22:59] VITALS: BP 139/90; PULSE 80; RESP 16; TEMP 36.7; O2SAT 98; BMI 27.4
--- NOTE | 2020-12-11 23:13 | XR_ITS ---
PROCEDURE INFORMATION: Exam: XR Left Tibia and Fibula Exam date and time: 12/11/2020 11:13 PM Age: 55 years old Clinical indication: Other: Lump seen in skin on lateral aspect tibia fibula above ankle area; Prior surgery; Surgery date: 6+ months; Surgery type: Ankle surgery in past; Additional info: Lump on leg no trauma TECHNIQUE: Imaging protocol: XR Left tibia and fibula. Views: 2 views. COMPARISON: CR XR ANKLE WT BEARING LT MIN 3V 10/23/2020 11:01 AM FINDINGS: Tubes, catheters and devices: There are remote surgical changes with an anchor device within the distal fibula. Bones/joints: There is a small well corticated bone fragment within the medial plafond of the mortise joint near the inferior tip of the medial malleolus consistent with remote trauma. The mortise joint is anatomic and the distal tibiofibular clear space maintained. The left tibia and fibula are intact without acute findings. There is minimal lateral malleolar swelling. There is a moderately large calcaneal enthesophyte at the insertion of the plantar fascia. There is a calcification in the Achilles tendon suggesting a calcific tendinopathy. Soft tissues: Normal. IMPRESSION: No acute findings.
--- NOTE | 2020-12-12 00:39 | HMH.EDGENADL ---
ED Disposition Clinical Impression: Lump, Sciatica Disposition: Home, Self-Care Condition on Discharge: Good Additional Instructions: Return any new or worsening symptoms. Follow-up for your already scheduled MRI. Follow-up with your primary care physician if the bump is still there in a week. Referrals: Ruel Levi MD [Primary Care Provider] - - Critical Care Critical Care Time: No Attestation: On 12/11/20, the high probability of a clinically significant, sudden or life threatening deterioration of the following system(s) required my full and direct attention, intervention and personal management. The time I documented below is in addition to time spent performing reported procedures but includes the following listed in this critical care notation. Medical Decision Making - Medical Records Medical records reviewed: Yes: I reviewed the patient's medical records. - Maxime Inquiry Pt receiving controlled substance: No Vital Signs: 12/11/20 22:59 Temperature 98.0 F Temperature Source Oral Pulse Rate [Right Brachial] 80 Respiratory Rate 16 Blood Pressure [Right Arm] 139/90 Blood Pressure Mean [Right Arm] 106 Blood Pressure Source [Right Arm] Automatic Cuff Blood Pressure Position [Right Arm] Sitting 02 Sat by Pulse Oximetry 98 Oxygen Delivery Method Room Air Orders (Tests/Meds): ORDERS Category Date Time Status XR tibia fibula LT 2V Stat Exams 12/11/20 23:13 Taken General Adult HPI - General Chief complaint: PAIN Stated complaint: back pain and large knot on leg Time Seen by Provider: 12/11/20 23:25 Mode of Arrival: Family Vehicle Limitations: No Limitations Description of Symptoms (Recalled from ER Triage Doc. by RN): pt states she was previously seen in the ed a short while before for back issues and associated leg pain. history included back surgeries and having a couple spots taken off that leg . the leg in question is cool to the touch but has palpable pulses. pt states it feels like a toothache-type pain that works its way down her leg and hurts all the time. she spoke with the pcp juan pablo and noted that she was told to be evaluated by the er physician for the coolness and increased pain. - History of Present Illness HPI narrative: The patient is a 55-year-old female with a history of chronic back pain who presents to the emergency department today with a knot on her left leg. Has had this back pain with shooting paresthesias down her left leg over the last week. She is scheduled for an outpatient MRI in several days. She does not have any bowel or bladder incontinence, numbness in her groin, fevers, IV drug use, history of cancer. She states her back pain is at baseline, however she noticed a knot in her left leg which is the leg with paresthesias and so she was concerned so she wanted to get it looked at. No new pain there. No other complaints - Related Data Home Medications Medication Instructions Recorded Confirmed diazepam 5 mg tablet 5 mg PO BID PRN tab 04/12/19 12/11/20 cholecalciferol (vitamin D3) 250 250 mcg PO BID 01/25/20 12/11/20 mcg (10,000 unit) capsule multivitamin,[id number] 1 tab PO DAILY 01/25/20 12/11/20 vitamin A 2,500 unit-vit C 100 1 cap PO DAILY cap 05/04/20 12/11/20 mg-biotin 2,500 frw-odls-waxumq capsule Biotin 1 tab PO BID 05/30/20 12/11/20 Previous Rx's Medication Instructions Recorded diclofenac sodium 1 % topical gel 4 g TOPICAL QID PRN #30 g 01/25/20 Allergies Allergy/AdvReac Type Severity Reaction Status Date / Time eletriptan Allergy Intermediate NUMBNESS Verified 10/23/20 09:52 AND TONGUE FELT FUNNY gabapentin AdvReac Unknown MAKES EYE Verified 10/23/20 09:52 BLURRY [facility] History - Hepatitis A Screen Drug use history?: No High risk sexual behaviors?: No History of sexually transmitted infection?: No Currently employed?: No Childcare worker?: No Do you have indoor plumbing?: Yes
[2020-12-12 00:51] VITALS: BP 141/71; PULSE 81; RESP 16; TEMP 36.7; O2SAT 98
== END 2020-12-12 00:53 | disposition home or self-care (01) ==
PROVIDERS: Emergency Provider Emergency Medicine; PCP Internal Medicine Adolescent Medicine
DX: M54.42 Lumbago with sciatica, left side (principal); E11.9 Type 2 diabetes mellitus without complications; I10 Essential (primary) hypertension; G43.709 Chronic migraine without aura, not intractable, without status migrainosus; Z79.899 Other long term (current) drug therapy
CPT/HCPCS: 73590; 99282

== ENCOUNTER → 2020-12-14 09:38 | Outpatient (CLI) | payer MEDICARE, SELFPAY ==
--- NOTE | 2020-12-14 09:43 | MR_ITS ---
PROCEDURE: MR LUMBAR SPINE WO/W CON CLINICAL INDICATION: ACUTE LEFT SIDED BACK PAIN WITH SCIATICA Pain x1wk after bending over to pick something up. Lt leg pain, numbness, tingling, and burning. Prior fision 2011. Prior MRI 05/12/17. 15ml pohance injected. COMPARISON: CT ABDPELW/O CT ABD PELVIS W/O CONTRAST from 04/30/2017 MR LSC MRI-L-SPINE W/WO from 05/12/2017 MR MR ANKLE LT WO/W CON from 03/27/2020 TECHNIQUE: Standard multiplanar multiecho sequences are performed without and with contrast. 3-D MIP and myelographic images are also rendered and reviewed FINDINGS: Extensive artifact is once again noted at the L3-L4 L4-5 and L5-S1 region as previously described. The spinal cord ends at the L1-L2 level. T11-T12: Mild degenerative disc disease. T12-L1: Unremarkable. L1-L2: Unremarkable. L2-L3: Mild degenerative disc disease with mild bulging disc along with facet and ligamentum hypertrophic change. There is a minimal broad-based left paracentral disc protrusion which has developed since the previous exam.. Facet and ligamentum hypertrophic change is present with bilateral lateral recess and foraminal narrowing. The lateral recess narrowing slightly greater on the left. L3-L4: Mostly obscured by artifact. Degenerative disc disease L4-5: Prominent artifact. There may be a central/right paracentral disc protrusion. L5-S1: Postsurgical changes with fusion. Degenerative disc disease with a small broad-based left paracentral disc protrusion/disc osteophyte complex not significantly changed No enhancing lesions apparent. IMPRESSION: Postsurgical changes with severe artifact. L2-L3: Mild degenerative disc disease with mild bulging disc along with facet and ligamentum hypertrophic change. There is a minimal broad-based left paracentral disc protrusion which has developed since the previous exam.. Facet and ligamentum hypertrophic change is present with bilateral lateral recess and foraminal narrowing. The lateral recess narrowing slightly greater on the left. L4-5: Prominent artifact. There may be a central/right paracentral disc protrusion. L5-S1: Postsurgical changes with fusion. Degenerative disc disease with a small broad-based central/left paracentral disc protrusion/disc osteophyte complex not significantly changed Dictated by: Philip Jenkins MD 12/15/2020 09:39 Philip Jenkins MD in [place] 12/15/2020 09:40
== END ==
PROVIDERS: PCP Internal Medicine Adolescent Medicine; Visit Provider Internal Medicine Adolescent Medicine
DX: M54.42 Lumbago with sciatica, left side (principal)
CPT/HCPCS: 72158; 76376; A9576

== ENCOUNTER 2021-01-23 10:30 | Outpatient (RCR) | payer MEDICARE, SELFPAY | END 2021-01-23 11:15 | disposition home or self-care (01) | LOC: PT 10:30 | PROVIDERS: PCP Internal Medicine Adolescent Medicine; Visit Provider Neurological Surgery | DX: M54.16 Radiculopathy, lumbar region (principal) | CPT/HCPCS: 97014; 97110; 97163; G0283 ==

== ENCOUNTER 2021-06-20 18:15 | Emergency (ER) | payer MEDICARE, SELFPAY ==
[2021-06-20 18:50] VITALS: BP 159/89; PULSE 89; RESP 18; TEMP 36.8; O2SAT 99; BMI 28.3
--- NOTE | 2021-06-20 19:01 | HMH.EDUPEXT ---
ED Disposition Clinical Impression: Laceration of finger Disposition: Home, Self-Care Condition on Discharge: Good Referrals: Ruel Levi MD [Primary Care Provider] - - Critical Care Critical Care Time: No Attestation: On 06/20/21, the high probability of a clinically significant, sudden or life threatening deterioration of the following system(s) required my full and direct attention, intervention and personal management. The time I documented below is in addition to time spent performing reported procedures but includes the following listed in this critical care notation. Medical Decision Making - Medical Records Medical records reviewed: Yes: I reviewed the patient's medical records. - Maxmie Inquiry Pt receiving controlled substance: Yes Maxime was queried for this patient: No Risks and benefits of using a controlled substance: were not discussed with pt by me Vital Signs: 06/20/21 18:50 Temperature 98.2 F Temperature Source Oral Pulse Rate [Right Radial] 89 Respiratory Rate 18 Blood Pressure [Right Arm] 159/89 H Blood Pressure Mean [Right Arm] 112 Blood Pressure Source [Right Arm] Automatic Cuff Blood Pressure Position [Right Arm] Supine 02 Sat by Pulse Oximetry 99 Oxygen Delivery Method Room Air Medical Decision Narrative: Laceration repaired at bedside. Irrigated. No other injuries identified. Tetanus up-to-date. Upper Extremity HPI - General Chief Complaint: Extremity Injury, Upper Stated Complaint: Laceration to R index finger Time Seen by Provider: 06/20/21 19:04 Mode of Arrival: Ambulatory Limitations: No Limitations Description of Symptoms (Recalled from ER Triage Doc. by RN): Pt stated that she was making dinner and opened a can of gustafson and she cut her right index finger on the can. - History of Present Illness HPI narrative: Patient presents with a laceration to the right pointer finger. Patient was opening a can of beans and suffered a laceration. Patient's had no anesthesia distal to the laceration. Hemostasis achieved prior to presentation. Patient has had a updated tetanus within the last 5 years. - Related Data Home Medications Medication Instructions Recorded Confirmed diazepam 5 mg tablet 5 mg PO BID PRN tab 04/12/19 12/11/20 cholecalciferol (vitamin D3) 250 250 mcg PO BID 01/25/20 12/11/20 mcg (10,000 unit) capsule multivitamin,th-lwpn-ihcyvels 1 tab PO DAILY 01/25/20 12/11/20 vitamin A 2,500 unit-vit C 100 1 cap PO DAILY cap 05/04/20 12/11/20 mg-biotin 2,500 [id number]-dbri-[id number] capsule Biotin 1 tab PO BID 05/30/20 12/11/20 Previous Rx's Medication Instructions Recorded diclofenac sodium 1 % topical gel 4 g TOPICAL QID PRN #30 g 01/25/20 Allergies Allergy/AdvReac Type Severity Reaction Status Date / Time eletriptan Allergy Intermediate NUMBNESS Verified 10/23/20 09:52 AND TONGUE FELT FUNNY gabapentin AdvReac Unknown MAKES EYE Verified 10/23/20 09:52 BLURRY [facility] History - Hepatitis A Screen Drug use history?: No High risk sexual behaviors?: No History of sexually transmitted infection?: No Currently employed?: No Childcare worker?: No Do you have indoor plumbing?: Yes Do you have electricity?: Yes Attestation statement:: This patient has been screened for Hepatitis A risk factors. Medical History: Reports:: Diabetes Mellitus Type 2, Heart Murmur, Hypertension, Migraine Denies:: Anxiety, Cancer, Depression, Diabetes Mellitus Type 1, Internal Pacemaker, MRSA, Seizures, Transient Ischemic Attacks (TIA) Other Medical History: Reports: Arthritis, Other. Denies: Blood Transfusion Reaction Comment: CORAZON, on CPAP Laterality Cases: Left: Arthroscopy Shoulder, Bilateral: Other Other Surgeries: Yes: Bariatric Surgery, Cardiac Catheterization, Colonoscopy, Hysterectomy-Total, Hysterectomy-Partial, Plastic Surgery, Tubal Ligation, Other. No: Pacemaker Amputation: No Fractures: Yes Comment: Back and neck fusion, Left
[2021-06-20 19:11] VITALS: BP 168/101; PULSE 87; RESP 16; TEMP 36.8
== END 2021-06-20 19:14 | disposition home or self-care (01) ==
PROVIDERS: Emergency Provider Internal Medicine Critical Care Medicine; PCP Internal Medicine Adolescent Medicine
DX: S61.210A Laceration without foreign body of right index finger without damage to nail, initial encounter (principal); W26.8XXA Contact with other sharp object(s), not elsewhere classified, initial encounter; Y92.010 Kitchen of single-family (private) house as the place of occurrence of the external cause; I10 Essential (primary) hypertension; E11.9 Type 2 diabetes mellitus without complications; R01.1 Cardiac murmur, unspecified
CPT/HCPCS: 12001; 99282

== ENCOUNTER → 2021-06-26 09:43 | Outpatient (CLI) | payer MEDICARE, SELFPAY ==
--- NOTE | 2021-06-26 09:47 | XR_ITS ---
FINAL REPORT CLINICAL HISTORY: PAIN FINDINGS: LEFT ANKLE Three views demonstrate no acute fracture or dislocation. There is an orthopedic screw in the inferior lateral malleolus. The mortise appears intact. There is a large plantar spur. 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 The soft tissues are unremarkable. IMPRESSION: No acute bony abnormality. Reviewed, Interpreted and Dictated by Andre Bonilla MD Transcribed by Marcia Soria Authenticated by Andre Bonilla MD on 06/26/2021 12:13:26 PM [facility]
--- NOTE | 2021-06-26 09:47 | XR_ITS ---
FINAL REPORT CLINICAL HISTORY: PAIN FINDINGS: LEFT FOOT 3 views were obtained. There is no acute fracture or dislocation. The joint spaces are intact. There is a moderate plantar calcaneal spur. 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 There is no soft tissue abnormality. IMPRESSION: No acute bony abnormality. Reviewed, Interpreted and Dictated by Andre Bonilla MD Transcribed by Marcia Sroia Authenticated by Andre Bonilla MD on 06/26/2021 12:14:10 PM [facility]
== END ==
PROVIDERS: PCP Internal Medicine Adolescent Medicine; Visit Provider Podiatrist
DX: M79.672 Pain in left foot (principal)
CPT/HCPCS: 73610; 73630

== ENCOUNTER 2021-06-26 10:57 | Emergency (ER) | payer MEDICARE, SELFPAY ==
[2021-06-26 11:05] VITALS: BP 109/81; PULSE 86; RESP 18; TEMP 36.8; O2SAT 99; BMI 27.9
[2021-06-26 11:08] VITALS: BP 109/81; PULSE 86; RESP 18; TEMP 36.8; O2SAT 99
== END 2021-06-26 11:10 | disposition home or self-care (01) ==
LOC: UTC 11:00
PROVIDERS: Emergency Provider Nurse Practitioner; PCP Internal Medicine Adolescent Medicine
DX: S61.210D Laceration without foreign body of right index finger without damage to nail, subsequent encounter (principal)
CPT/HCPCS: 73610; 73630

== ENCOUNTER → 2022-05-13 12:12 | Outpatient (CLI) | payer MEDICARE, SELFPAY ==
--- NOTE | 2022-05-13 12:20 | XR_ITS ---
FINAL REPORT CLINICAL HISTORY: ankle pain,,prior surgery FINDINGS: LEFT ANKLE Three views demonstrate no acute fracture or dislocation. There are postoperative changes of the lateral malleolus. A plantar calcaneal spur is noted. Calcification is seen in the region of the distal Achilles tendon. The visualized joint spaces are normally aligned. The soft tissues are unremarkable. IMPRESSION: Degenerative and postoperative changes without acute bony abnormality. Reviewed, Interpreted and Dictated by Tato Anderson III, MD Transcribed by Marisa Gudino Authenticated and . [facility]
--- NOTE | 2022-05-13 12:20 | XR_ITS ---
FINAL REPORT CLINICAL HISTORY: foot pain..prior surgery FINDINGS: LEFT FOOT Three views of the left foot demonstrate no acute fracture or dislocation. The visualized joint spaces are normally aligned. Mild degenerative changes are seen. There is mild hallux valgus deformity. The soft tissues are unremarkable. IMPRESSION: No acute bony abnormality. Reviewed, Interpreted and Dictated by Tato Anderson III, MD Transcribed by Marisa Gudino Authenticated and . [facility]
== END ==
PROVIDERS: PCP Internal Medicine Adolescent Medicine; Visit Provider Podiatrist
DX: M25.572 Pain in left ankle and joints of left foot; M79.672 Pain in left foot
CPT/HCPCS: 73610; 73630

== ENCOUNTER → 2022-06-27 08:54 | Outpatient (CLI) | payer MEDICARE, BC, SELFPAY ==
--- NOTE | 2022-06-27 08:54 | MR_ITS ---
FINAL REPORT TECHNIQUE: Multiplanar MRI without gadolinium enhancement CLINICAL HISTORY: ankle pain. PRIOR ANKLE SURGERY 2 YEARS AGO. NO INJURY OR TRAUMA. COMPARISON: 03/27/2020 FINDINGS: Articular cartilage: Arthritic changes are noted in the midfoot involving the metatarsals and cuneiforms. This appears slightly worse as compared to the prior exam. No osteochondral defect of the ankle mortise is identified. Marrow signal: Hardware artifact within the posterior calcaneus. Some areas of marrow edema in the midfoot associated with arthritis disease. Joint fluid: Small Tendons: Interval repair of the Achilles tendon with no evidence of recurrent or residual tear. Remaining tendons are unremarkable. Ligaments: Major ligaments unremarkable Plantar fascia: No evidence of tear or fasciitis. IMPRESSION: Interval Achilles tendon repair without evidence of recurrent tear. Slight worsening of degenerative changes in the midfoot. Reviewed, Interpreted and Dictated by Francisco Colin MD Transcribed by Saida Mccarthy Authenticated and [facility]
--- NOTE | 2022-06-27 08:54 | MR_ITS ---
FINAL REPORT TECHNIQUE: Multiplanar MR without contrast CLINICAL HISTORY: POSTERIOR knee pain. NO INJURY OR TRAUMA. FINDINGS: Articular cartilage: Grade 3 chondromalacia patella, greatest medially. Moderate degenerative changes in the medial compartment. Marrow signal: Unremarkable aside from small benign cyst near the tibial spine. Joint fluid: Small. Menisci: Normal morphology without tear Ligaments: Collateral and cruciate ligaments intact Tendons: Superficial edema overlying the patella and patellar tendon compatible with tendinitis. Severe tendinopathy noted of the medial gastrocnemius tendon at the femoral attachment with associated partial tear. IMPRESSION: Degenerative changes. Patellar tendinitis. Medial gastrocnemius tendinopathy with partial tear Reviewed, Interpreted and Dictated by Francisco Colin MD Transcribed by Saida Mccarthy Authenticated and [facility]
== END ==
PROVIDERS: PCP Internal Medicine Adolescent Medicine; Visit Provider Podiatrist
DX: G89.29 Other chronic pain (principal); M25.562 Pain in left knee; M25.572 Pain in left ankle and joints of left foot; M76.62 Achilles tendinitis, left leg
CPT/HCPCS: 73721

== ENCOUNTER → 2022-07-04 12:00 | Outpatient (CLI) | payer MEDICARE, BC, SELFPAY ==
--- NOTE | 2022-07-04 12:06 | XR_ITS ---
FINAL REPORT CLINICAL HISTORY: knee pain FINDINGS: Three views of the left knee reveal no evidence of fracture or dislocation. The bony alignment is normal. There are mild degenerative changes. There is no evidence of joint effusion. No localized soft tissue abnormality is seen. IMPRESSION: Mild degenerative changes without acute abnormality identified. Reviewed, Interpreted and Dictated by Tato Anderson III, MD Transcribed by Marisa Gudino Authenticated and [facility]
== END ==
PROVIDERS: PCP Internal Medicine Adolescent Medicine; Visit Provider Orthopaedic Surgery
DX: M25.562 Pain in left knee (principal)
CPT/HCPCS: 73562

== ENCOUNTER → 2023-02-11 09:36 | Outpatient (CLI) | payer MEDICARE, BC, SELFPAY ==
--- NOTE | 2023-02-11 09:40 | XR_ITS ---
FINAL REPORT CLINICAL HISTORY: Lt hand pain COMPARISON: None FINDINGS: LEFT HAND Three views demonstrate no acute fracture or dislocation. The visualized joint spaces are normally aligned. The soft tissues are unremarkable. IMPRESSION: No acute process. Reviewed, Interpreted and Dictated by Andre Bonilla MD Transcribed by Diandra Bhandari Authenticated and [facility]
== END ==
PROVIDERS: PCP Internal Medicine Adolescent Medicine; Visit Provider Orthopaedic Surgery
DX: M79.642 Pain in left hand (principal)
CPT/HCPCS: 73130

== ENCOUNTER → 2023-02-12 11:32 | Outpatient (CLI) | payer MEDICARE, BC, SELFPAY ==
--- NOTE | 2023-02-12 11:41 | XR_ITS ---
FINAL REPORT CLINICAL HISTORY: ACUTE PAIN COMPARISON: 07/04/2022 FINDINGS: There is no acute fracture or dislocation. The joint spaces are intact. There is no soft tissue abnormality. A moderate-sized joint effusion is present. IMPRESSION: Moderate joint effusion, no acute fracture Reviewed, Interpreted and Dictated by Andre Bonilla MD Transcribed by Mis Perez Authenticated and [facility]
== END ==
PROVIDERS: PCP Nurse Practitioner Family; Visit Provider Nurse Practitioner Family
DX: M25.562 Pain in left knee (principal)
CPT/HCPCS: 73562

== ENCOUNTER → 2023-05-12 08:37 | Outpatient (CLI) | payer MEDICARE, BC, SELFPAY ==
--- NOTE | 2023-05-12 09:03 | ECG_ITS ---
APPROVED REPORT Exam: Resting ECG HR:93 bpm ECG Measurements Heart Rate 93 AXES NE 150 P 28 QRSd 77 QRS 40 QT 344 T -9 QTc 395 Conclusion SINUS RHYTHM LOW QRS VOLTAGE IN PRECORDIAL LEADS [QRS DEFLECTION < 1.0 mV IN CHEST LEADS] NONSPECIFIC T-WAVE ABNORMALITY BORDERLINE ECG UNCONFIRMED REPORT Electronically signed by : Ruel Levi MD 05/14/2023 17:16:02
--- NOTE | 2023-05-12 09:12 | XR_ITS ---
FINAL REPORT CLINICAL HISTORY: Pre Op for trigger finger surgery FINDINGS: 2 views of the chest were obtained . The heart is normal in size. The mediastinum is within normal limits. The lungs are clear. There is no pneumothorax. Osseous structures demonstrate postoperative changes in the lower cervical spine. IMPRESSION: No acute cardiopulmonary process. Reviewed, Interpreted and Dictated by Tato Anderson III, MD Transcribed by Marisa Gudino Authenticated and [facility]
[2023-05-12 09:49] LABS: Alanine Aminotransferase 21 U/L (12-78); Albumin Level 4.6 g/dl (3.5-5.0); Albumin/Globulin Ratio 1.6 (1.1-1.8); Alkaline Phosphatase 62 U/L (38-126); Anion Gap 15.2 mEq/L (5-15); Aspartate Amino Transferase 33 U/L (14-36); Bilirubin,Total 0.4 mg/dl (0.2-1.3); Blood Urea Nitrogen 11 mg/dl (7-17); Carbon Dioxide 23 mmol/L (22.0-30.0); Chloride 106 mmol/L (98-107); Estimated Glomerular Filt Rate 87 ml/min (>60); GFR (African American) 105 ML/MIN (>60); Globulin 2.8 g/dL (1.3-3.2); Glucose 96 mg/dl (74-100); Potassium 4.2 mmoL/L (3.5-5.1); Sodium 140 mmol/L (136-145); Total Protein,Serum 7.4 g/dl (6.3-8.2)
[2023-05-12 09:50] LABS: Basophils % 0.8 % (0.1-2.0); Eosinophils # 0.2 K/mm3 (0.0-0.4); Eosinophils % 5.6 % (0.1-12.0); Hematocrit 40.3 % (37.0-47.0); Hemoglobin 13.5 g/dL (12.2-16.2); Lymphocytes # 1.3 K/mm3 (0.7-4.5); Lymphocytes % 38.9 % (10-50); Mean Corpuscular HGB Conc 33.5 g/dL (31.8-35.4); Mean Corpuscular Hemoglobin 29.8 pg (27.0-31.2); Mean Corpuscular Volume 88.8 fl (81-99); Mean Platelet Volume 7.9 fl (7.4-10.4); Monocytes # 0.2 K/mm3 (0.1-1.0); Monocytes % 5.5 % (1.7-9.3); Neutrophils # 1.6 K/mm3 (1.8-7.8); Neutrophils % 49.2 % (37.0-80.0); Platelet Count 231 K/mm3 (142-424); Red Blood Count 4.54 M/mm3 (4.20-5.40); White Blood Count 3.3 K/mm3 (4.8-10.8)
== END ==
LOC: LAB 08:38
PROVIDERS: PCP Internal Medicine Adolescent Medicine; Visit Provider Orthopaedic Surgery
DX: J30.9 Allergic rhinitis, unspecified (principal); M65.342 Trigger finger, left ring finger
CPT/HCPCS: 36415; 71046; 80053; 85025; 93005

== ENCOUNTER 2023-05-19 08:12 | Day surgery (SDC) | payer MEDICARE, BC, SELFPAY ==
[2023-05-14 10:51] VITALS: BMI 27.8
[2023-05-19] VITALS (7 sets, daily range): BP systolic 117–155; BP diastolic 68–92; PULSE 98–107; RESP 16–18; TEMP 36.3–36.7; O2SAT 95–100
--- NOTE | 2023-05-19 10:15 | EXP.ANES.CKL ---
[facility] Disclaimer: The information contained in this section may have been updated after the patient was seen, as this information can be updated by other users. Medical History Heart murmur Surgical History History of back surgery History of gastric bypass History of neck surgery S/P foot surgery, left Family History Other Family history of cancer Family history of diabetes mellitus type II Family history of stroke Social History Smoking Status: Never smoker second hand exposure: No alcohol intake: never substance use type: denies use current occupational status: disabled Travel in the last 8 weeks: None household members: spouse housing: house current occupation: [employer] current occupational exposures/hazards: No caffeine: Yes [facility] Anesthesia Checklist Patient Identification Patient Identification: Arm Band Structural Data Admitted From: Home Planned Operative Procedure/s: Left Ring Finger Trigger Finger Release Consent for Planned Operative Procedure(s) Verified: Yes Verified Documents: Surgical Consent and History and Physical NPO Status Verified Time NPO: 00:00 Additional verifications Anesthesia Reactions: Yes (TROUBLE WAKING UP FROM ANESTHESIA) Hx Blood Transfusions: No Blood Transfusion Reaction: No Airway Assessment Mallampati Score:: Class II C-Spine Mobility Assessed: Yes TMJ Mobility Assessed: Yes Dentition: Dentures-good fit (upper dentures removed) Neurological Assessment Level of Consciousness: Awake and Alert Anesthesia Plan Anesthesia Risk discussed: Yes Anesthesia Plan: Verified ASA Class: II Anesthesia Type: MAC
--- NOTE | 2023-05-19 11:49 | EXP.OP.NOTE ---
Date of procedure: 05/19/23 Pre-op Diagnosis:: Left ring finger trigger finger Post-op Diagnosis:: Same Procedure performed:: Left ring finger trigger finger release (A1 miko release) Surgeon:: Yuan Craft DO Anesthesia: MAC and local Estimated blood loss (mL): 0 Operative findings:: See dictation Operative note:: Patient is identified preoperatively. Left hand marked with a yes and my initials. Transported operative suite. Placed supine the operating bed. Given sedation. Left upper extremities and prepped and draped normal sterile fashion. Once prepped and draped final operative timeout performed to identify proper patient procedure and extremity. Everyone involved the case agreed. No counter indications to beginning. Did receive preoperative antibiotics. Local anesthesia was administered to the incision site with lidocaine with epinephrine. Esmarch was used to exsanguinate extremity pneumatic tourniquet inflated to 250 mmHg. Skin knife was used incise through skin careful dissection was taken down with the scissors to identify the A1 miko. Retractors were placed a [place] blade was used to incise the A1 miko and an incision of the A1 miko was completed with scissors under direct visualization. The tendons were brought outside the incision to ensure free gliding of the tendons. There was a bump on the tendon sheath present but no triggering persistent with the range of motion of the finger. Irrigation of the wound performed. Skin closed with nylon stitch sterile hand dressing placed tourniquet deflated patient waken anesthesia taken to recovery in stable condition. Condition: stable Disposition: PACU Complications:: None apparent
== END 2023-05-19 13:00 | disposition home or self-care (01) ==
PROVIDERS: PCP Internal Medicine Adolescent Medicine; Visit Provider Orthopaedic Surgery
PROC: (CPT 26055; principal; 2023-05-19 09:45)
DX: M65.342 Trigger finger, left ring finger (principal); Z79.899 Other long term (current) drug therapy
CPT/HCPCS: 26055; 96374

== ENCOUNTER → 2023-06-03 10:11 | Outpatient (CLI) | payer MEDICARE, BC, SELFPAY ==
--- NOTE | 2023-06-03 10:19 | XR_ITS ---
FINAL REPORT CLINICAL HISTORY: left trigger ring finger, post op COMPARISON: None FINDINGS: LEFT HAND Three views demonstrate no acute fracture or dislocation. The visualized joint spaces are normally aligned. The soft tissues are unremarkable. IMPRESSION: No acute process. Reviewed, Interpreted and Dictated by Andre Bonilla MD Transcribed by Mis Perez Authenticated and [facility]
== END ==
LOC: RAD 10:12
PROVIDERS: PCP Internal Medicine Adolescent Medicine; Visit Provider Orthopaedic Surgery
DX: M65.342 Trigger finger, left ring finger (principal)
CPT/HCPCS: 73130

== ENCOUNTER 2024-03-23 09:21 | Outpatient (CLI) | payer MEDICARE, SELFPAY ==
--- NOTE | 2024-03-23 09:25 | XR_ITS ---
FINAL REPORT CLINICAL HISTORY: right hand and thumb pain FINDINGS: RIGHT HAND Three views demonstrate no acute fracture or dislocation. The visualized joint spaces are normally aligned. The soft tissues are unremarkable. IMPRESSION: No acute bony abnormality. Reviewed, Interpreted and Dictated by Andre Bonilla MD Transcribed by Mis Perez Authenticated and . [facility]
== END 2024-03-23 23:59 | disposition home or self-care (01) ==
LOC: RAD 09:23
PROVIDERS: PCP Internal Medicine Adolescent Medicine; Visit Provider Orthopaedic Surgery
DX: M79.641 Pain in right hand (principal); G56.01 Carpal tunnel syndrome, right upper limb
CPT/HCPCS: 73130

== ENCOUNTER 2024-04-28 12:03 | Outpatient (CLI) | payer MEDICARE, SELFPAY ==
[2024-04-28 13:40] VITALS: BMI 29.2
[2024-04-28 13:57] LABS: Chloride 105 mmol/L (98-107); Sodium 142 mmol/L (136-145)
[2024-04-28 13:59] LABS: Blood Urea Nitrogen 8 mg/dl (7-17); Creatinine Clearance Estimated 108 mL/min (50-200); Estimated Glomerular Filt Rate 86 ml/min (>60); GFR (African American) 104 ML/MIN (>60)
--- NOTE | 2024-04-28 13:59 | ECG_ITS ---
APPROVED REPORT Exam: Resting ECG HR:75 bpm ECG Measurements Heart Rate 75 AXES [place] 146 P 22 QRSd 76 QRS 8 QT 382 T 17 QTc 410 Conclusion SINUS RHYTHM NORMAL ECG UNCONFIRMED REPORT Electronically signed by : Ruel Levi MD 05/02/2024 12:53:10
[2024-04-28 14:00] LABS: Carbon Dioxide 30 mmol/L (22.0-30.0); Glucose 96 mg/dl (74-100)
[2024-04-28 14:02] LABS: Basophils % 0.8 % (0.1-2.0); Eosinophils # 0.2 K/mm3 (0.0-0.4); Eosinophils % 4.3 % (0.1-12.0); Hematocrit 39.9 % (37.0-47.0); Hemoglobin 13.5 g/dL (12.2-16.2); Lymphocytes # 1.6 K/mm3 (0.7-4.5); Lymphocytes % 38.5 % (10-50); Mean Corpuscular HGB Conc 33.8 g/dL (31.8-35.4); Mean Corpuscular Hemoglobin 29.1 pg (27.0-31.2); Mean Platelet Volume 7.8 fl (7.4-10.4); Monocytes # 0.3 K/mm3 (0.1-1.0); Monocytes % 6.4 % (1.7-9.3); Platelet Count 273 K/mm3 (142-424); Red Blood Count 4.65 M/mm3 (4.20-5.40); Red Cell Distribution Width 13.1 % (11.5-17.5); White Blood Count 4.1 K/mm3 (4.8-10.8)
== END 2024-04-28 23:59 | disposition home or self-care (01) ==
LOC: PREOP 12:04
PROVIDERS: Nurse Anesthetist, Certified Registered; PCP Internal Medicine Adolescent Medicine; Visit Provider Orthopaedic Surgery
DX: J30.9 Allergic rhinitis, unspecified (principal)
CPT/HCPCS: 80048; 85025; 93005

== ENCOUNTER 2024-05-10 06:01 | Day surgery (SDC) | payer MEDICARE, SELFPAY ==
[2024-05-07 14:25] VITALS: BMI 29.2
[2024-05-10 06:24] VITALS: BP 121/76; PULSE 94; RESP 18; TEMP 36.3; O2SAT 98
[2024-05-10] MEDS: LACTATED RINGERS 1000ML 1,000 ML 100 ML IV (06:34)
--- NOTE | 2024-05-10 07:08 | EXP.ANES.CKL ---
[facility] Disclaimer: The information contained in this section may have been updated after the patient was seen, as this information can be updated by other users. Medical History History of trigger finger CORAZON (obstructive sleep apnea) Heart murmur Surgical History History of shoulder surgery History of neck surgery History of back surgery S/P foot surgery, left History of gastric bypass Family History Other Family history of cancer Family history of diabetes mellitus type II Family history of heart disease Family history of stroke Social History (Updated 05/10/24 @ 06:25 by Anju Partida RN) Smoking Status: Never smoker second hand exposure: No alcohol intake: never substance use type: denies use current occupational status: disabled Travel in the last 8 weeks: None household members: spouse housing: house current occupation: [employer] current occupational exposures/hazards: No caffeine: Yes [facility] Anesthesia Checklist Patient Identification Patient Identification: Arm Band and Family Structural Data Admitted From: Home Planned Operative Procedure/s: Endoscopic CTR plus trigger raza release Consent for Planned Operative Procedure(s) Verified: Yes Verified Documents: Surgical Consent NPO Status Verified Time NPO: 00:00 Additional verifications Patient : No Anesthesia Reactions: Yes (trouble waking up after anesthesia) Hx Blood Transfusions: No Blood Transfusion Reaction: No Cephalosporin Allergy: No Previous Colonoscopy: No Airway Assessment Mallampati Score:: Class II C-Spine Mobility Assessed: Yes TMJ Mobility Assessed: Yes Dentition: Partials Neurological Assessment Level of Consciousness: Awake, Alert, Appropriate and Follows Commands Hx Seizures: No Numbness or tingling in extremities: No Anesthesia Plan Anesthesia Risk discussed: Yes ASA Class: II Anesthesia Type: MAC Preoperative Comments Pre-Operative Comments: Chronic migraines
[2024-05-10] MEDS: CEFAZOLIN SODIUM 2 GM in 0.9 % SODIUM CHLORIDE 100 ML IV (07:26)
[2024-05-10] MEDS: LIDOCAINE 1% W/EPI 1:100,000 20ML VIAL 20 ML (07:50)
[2024-05-10 08:36] VITALS: BP 116/71; PULSE 97; RESP 17; TEMP 36.6; O2SAT 98
[2024-05-10 08:46] VITALS: BP 113/59; PULSE 98; RESP 16; O2SAT 98
--- NOTE | 2024-05-10 08:50 | P.OP_ITS ---
Date of procedure: 05/10/24 Pre-op Diagnosis:: Right carpal tunnel syndrome Right trigger thumb Post-op Diagnosis:: Same Procedure performed:: 1. Right endoscopic carpal tunnel release 2. Right trigger thumb release Surgeon:: Yuan Craft DO PRICING ASSOCIATE:: Omar Ewing Anesthesia: MAC and local Estimated blood loss (mL): 0 Operative findings:: See dictation Operative note:: Patient identified preoperatively. Right wrist marked with yes my initials. Transported operative suite. Placed upon the operating bed. Given sedation. Right upper extremity prepped and draped normal sterile fashion. Once prepped and draped final operative timeout performed to identify proper patient procedure and extremity. Everyone involved the case agreed. There is no counter indications beginning. Did receive preoperative antibiotics. Marking pen was used to edis plan incision over the volar wrist crease. And planned incision over the A1 miko of the thumb. Esmarch was used to exsanguinate the extremity pneumatic tourniquet inflated to 250 mmHg. Skin knife was used incise through skin careful dissection was taken down to identify the most proximal aspect of the transverse carpal ligament. Once this is identified the small dilator followed by the larger dilator was placed into the carpal tunnel. Followed by the 4.0 mm sled. Within the carpal tunnel the camera was used to visualize the undersurface of the transverse carpal ligament. Hook probe was used to identify the most distal aspect the transverse carpal ligament. Rasp was used to remove soft tissue from the undersurface. Followed by hook blade which was used to release the transverse carpal ligament this was directly visualized on the camera. Irrigation of the wound performed. Attention is then brought to the thumb. Where incision was made over the flexor surface of the thumb with the A1 miko. Retractors placed careful dissection was taken down to identify the A1 miko. The A1 miko was incised with a [place] blade. And then released under direct visualization with scissors. This relieved the triggering. Small cyst was seen and ruptured. Irrigation wound performed. Skin for the carpal tunnel and the trigger finger closed with nylon with a sterile hand dressing placed. Patient awaken from anesthesia taken recovery stable condition Condition: stable Disposition: PACU Complications:: None apparent
[2024-05-10 08:56] VITALS: BP 121/72; PULSE 97; RESP 15; O2SAT 98
[2024-05-10 09:06] VITALS: BP 112/67; PULSE 92; RESP 17; TEMP 36.6; O2SAT 98
== END 2024-05-10 09:06 | disposition home or self-care (01) ==
PROVIDERS: PCP Internal Medicine Adolescent Medicine; Visit Provider Orthopaedic Surgery
PROC: (CPT 64721; principal; 2024-05-10 07:30)
DX: G56.01 Carpal tunnel syndrome, right upper limb (principal); M65.311 Trigger thumb, right thumb
CPT/HCPCS: 26055; 29848; 96372; J0690; J1100; J2250; J2405; J3010; J7120

== ENCOUNTER 2024-06-19 08:12 | Emergency (ER) | payer MEDICARE, SELFPAY ==
[2024-06-19 08:49] VITALS: BP 108/67; PULSE 92; RESP 18; TEMP 36.9; O2SAT 97; BMI 30.2
--- NOTE | 2024-06-19 09:13 | ED_ITS ---
Discharge Plan Disposition Patient Disposition: Home, Self-Care Condition: Good Prescriptions Prescriptions: New amoxicillin 875 mg tablet 875 mg PO Q12H Qty: 20 0RF benzonatate 100 mg capsule 100 mg PO TIDP PRN (Reason: Cough) Qty: 30 0RF No Action diazepam 5 mg tablet 5 mg PO BID PRN (Reason: anxiety) pregabalin 50 mg Capsule 50 mg PO BID Referrals Follow up/Referrals: Ruel Levi MD [Primary Care Provider] - See instructions Activity Restrictions/Add. Instructions Additional Instructions/Restrictions: Drink plenty of fluids. Take tylenol or ibuprofen for pain or fever. Take the medications as directed. Follow up with your regular doctor. GO TO THE ER FOR ANY WORSENING SYMPTOMS Clinical Impressions Clinical Impression: Sinusitis Qualifiers: Sinusitis location: unspecified location Chronicity: unspecified Qualified Code(s): J32.9 - Chronic sinusitis, unspecified Instructions Patient Instructions: Sinusitis, DI for Sinusitis, Dexamethasone Injection Print Language Print Language: Croatian Discharge ED Provider: Omar Rutledge [facility] General Stated complaint: congestion ear soreness Mode of Arrival: Ambulatory Source of Information: Patient Time Seen by Provider: 06/19/24 09:13 Description of Symptoms (Recalled from Triage Doc. by RN): COUGH, CONGESTION, BILATERAL EAR PAIN HEENT Symptoms (Recalled from RN notes): Yes Resp Symptoms (Recalled from RN notes): Yes Skin Symptoms (Recalled from RN notes): No MS Symptoms (Recalled from RN notes): No Functional Status (Recalled from RN notes): WNL Related Data Home Medications ?Medication ?Instructions ?Recorded ?Confirmed diazepam 5 mg tablet 5 mg PO BID PRN anxiety 04/12/19 06/22/24 pregabalin 50 mg capsule 50 mg PO BID 04/28/24 06/22/24 Previous Rx's ?Medication ?Instructions ?Recorded amoxicillin 875 mg tablet 875 mg PO Q12H #20 tabs 06/19/24 benzonatate 100 mg capsule 100 mg PO TIDP PRN Cough #30 caps 06/19/24 Allergies Allergy/AdvReac Type Severity Reaction Status Date / Time eletriptan Allergy Intermediate NUMBNESS Verified 06/22/24 09:13 AND TONGUE FELT FUNNY Worker's Comp Is this a Worker's Comp case?: No [facility] Disclaimer: The information contained in this section may have been updated after the patient was seen, as this information can be updated by other users. Medical History (Updated 06/22/24 @ 09:30 by Cristina Nesbitt MA) Left carpal tunnel syndrome History of trigger finger CORAZON (obstructive sleep apnea) Heart murmur Surgical History History of shoulder surgery History of neck surgery History of back surgery S/P foot surgery, left History of gastric bypass Family History Other Family history of cancer Family history of diabetes mellitus type II Family history of heart disease Family history of stroke Social History Smoking Status: Never smoker second hand exposure: No alcohol intake: never substance use type: denies use current occupational status: disabled Travel in the last 8 weeks: None household members: spouse housing: house current occupation: [employer] current occupational exposures/hazards: No caffeine: Yes ROS Obtained: Yes All systems reviewed & no additional complaints except as do cumented Constitutional Constitutional: Reports poor appetite Eyes Eyes: Reports system reviewed and no additional complaints, except as documented ENT Ears, Nose, Mouth, and Throat: Reports as per HPI Cardiovascular Cardiovascular: Reports system reviewed and no additional complaints, except as documented and Denies chest pain Respiratory Respiratory: Denies shortness of breath, Denies chest congestion, Reports cough, Denies stridor and Denies wheezing Gastrointestinal Gastrointestingal: Reports system reviewed and no additional complaints, except as documented; Denies abdominal pain, diarrhea or vomiting Musculoskeletal Musculoskeletal: Reports system reviewed and no additional complaints, except as documented and Denies arthralgias Integumentary/Breasts Skin/Breast: Reports system reviewed and no additional complaints, except as documented and Denies rash Neurologic Neurologic: Denies paresthesias Allergic/Immunologic Allergic/Immunologic: Denies wheezing Physical Exam General General appearance: alert and in no apparent distress Eye Eye exam: Present normal appearance, PERRL and EOMI ENT ENT exam: Present mucous membranes moist and normal external ear exam Expanded ENT Exam External ear exam: Present normal external inspection TM/Canal exam: Bilateral TM: erythema and bulging Nose exam: Absent sinus tenderness Nasal speculum exam: Bilateral: normal Mouth exam: Present normal external inspection; Absent drooling Teeth exam: Present normal inspection Throat exam: Present tonsillar erythema and tonsillomegaly Neck Neck exam: Present normal inspection, full ROM and trachea midline; Absent tenderness, lymphadenopathy or thyromegaly Chest Chest inspection: Present normal inspection and symmetric chest wall rise; Absent tenderness or rash Respiratory Respiratory exam: Present normal lung sounds bilaterally; Absent respiratory distress, wheezes, stridor or accessory muscle use Cardiovascular Cardiovascular exam: Present regular rate, normal rhythm and normal heart sounds Abdominal Exam Abdominal exam: Present soft; Absent distention, tenderness, guarding, rebound or rigidity Extremities Exam Extremities exam: Present normal inspection, full ROM and normal capillary refill; Absent tenderness or calf tenderness Back Exam Back exam: Present normal inspection and full ROM; Absent tenderness Neurological Exam Neurological exam: Present alert and oriented X3 Psychiatric Psychiatric exam: Present normal affect and normal mood Skin Skin exam: Present warm, dry, intact and normal color Lymphatic Lymphatic Findings: no adenopathy Medical Decision Making Medical Records Medical records reviewed: No I reviewed the patient's medical records. Screening: Per USPSTF and CDC recommendations, given the prevalence of disease in our region, it is our hospital?s policy to screen for HIV and viral Hepatitis for all patients aged 18 and over and those with ongoing risk factors. Maxime Inquiry Pt receiving controlled substance: No Vital Signs: 06/19/24 08:49 Temperature 98.4 F Temperature Source Oral Pulse Rate [Left Brachial] 92 H Respiratory Rate 18 Blood Pressure [Left Arm] 108/67 L Blood Pressure Mean [Left Arm] 80 02 Sat by Pulse Oximetry 97
[2024-06-19] MEDS: DEXAMETHASONE 4MG/ML 1ML VIAL 8 MG IM (09:19)
[2024-06-19 09:55] VITALS: BP 108/67; PULSE 91; RESP 18; TEMP 36.9
== END 2024-06-19 09:56 | disposition home or self-care (01) ==
PROVIDERS: Emergency Provider Nurse Practitioner Family; PCP Internal Medicine Adolescent Medicine
DX: J32.9 Chronic sinusitis, unspecified (principal); R05.9 Cough, unspecified; R09.81 Nasal congestion; R63.8 Other symptoms and signs concerning food and fluid intake; H92.03 Otalgia, bilateral
CPT/HCPCS: 99212; G0381; J1100

== ENCOUNTER 2024-07-30 11:34 | Outpatient (CLI) | payer MEDICARE, SELFPAY ==
--- NOTE | 2024-07-30 12:20 | ECG_ITS ---
APPROVED REPORT Exam: Resting ECG HR:86 bpm ECG Measurements Heart Rate 86 AXES NM 156 P 15 QRSd 75 QRS 0 QT 364 T 4 QTc 407 Conclusion SINUS RHYTHM NORMAL ECG UNCONFIRMED REPORT Electronically signed by : Ruel Levi MD 07/31/2024 09:38:23
[2024-07-30 12:34] LABS: Basophils % 0.8 % (0.1-2.0); Eosinophils # 0.2 K/mm3 (0.0-0.4); Eosinophils % 3.7 % (0.1-12.0); Hematocrit 39.8 % (37.0-47.0); Lymphocytes # 1.8 K/mm3 (0.7-4.5); Lymphocytes % 37.3 % (10-50); Mean Corpuscular HGB Conc 32.7 g/dL (31.8-35.4); Mean Corpuscular Hemoglobin 28.1 pg (27.0-31.2); Mean Platelet Volume 10.1 fl (7.4-10.4); Monocytes # 0.4 K/mm3 (0.1-1.0); Monocytes % 8.1 % (1.7-9.3); Neutrophils # 2.4 K/mm3 (1.8-7.8); Neutrophils % 49.9 % (37.0-80.0); Platelet Count 308 K/mm3 (142-424); Red Blood Count 4.63 M/mm3 (4.20-5.40); Red Cell Distribution Width 12.3 % (11.5-17.5); White Blood Count 4.8 K/mm3 (4.8-10.8)
[2024-07-30 12:45] LABS: Albumin Level 4.9 g/dl (3.5-5.0); Chloride 104 mmol/L (98-107); Potassium 4.3 mmoL/L (3.5-5.1); Sodium 141 mmol/L (136-145)
[2024-07-30 12:48] LABS: Alanine Aminotransferase 21 U/L (12-78); Albumin/Globulin Ratio 1.8 (1.1-1.8); Alkaline Phosphatase 55 U/L (38-126); Anion Gap 13.3 mEq/L (5-15); Aspartate Amino Transferase 32 U/L (14-36); Bilirubin,Total 0.3 mg/dl (0.2-1.3); Blood Urea Nitrogen 18 mg/dl (7-17); Calcium 9.2 mg/dl (8.4-10.2); Carbon Dioxide 28 mmol/L (22.0-30.0); Estimated Glomerular Filt Rate 74 ml/min (>60); GFR (African American) 89 ML/MIN (>60); Globulin 2.7 g/dL (1.3-3.2); Glucose 89 mg/dl (74-100); Total Protein,Serum 7.6 g/dl (6.3-8.2)
== END 2024-07-30 23:59 | disposition home or self-care (01) ==
LOC: PREOP 11:35
PROVIDERS: PCP Internal Medicine Adolescent Medicine; Visit Provider Orthopaedic Surgery
DX: G56.02 Carpal tunnel syndrome, left upper limb (principal)
CPT/HCPCS: 80053; 85025; 93005

== ENCOUNTER 2024-08-04 08:28 | Day surgery (SDC) | payer MEDICARE, SELFPAY ==
[2024-08-04 09:14] VITALS: BP 121/74; PULSE 86; RESP 18; TEMP 36.6; O2SAT 97
[2024-08-04] MEDS: LACTATED RINGERS 1000ML 1,000 ML 100 ML IV (09:26)
--- NOTE | 2024-08-04 09:48 | P.PNANES_ITS ---
[facility] Disclaimer: The information contained in this section may have been updated after the patient was seen, as this information can be updated by other users. Medical History Left carpal tunnel syndrome History of trigger finger CORAZON (obstructive sleep apnea) Heart murmur Surgical History History of shoulder surgery History of neck surgery History of back surgery S/P foot surgery, left History of gastric bypass Family History Other Family history of cancer Family history of diabetes mellitus type II Family history of heart disease Family history of stroke Social History (Updated 08/04/24 @ 09:17 by Anju Partida RN) Smoking Status: Never smoker second hand exposure: No alcohol intake: never substance use type: denies use current occupational status: disabled Travel in the last 8 weeks: None household members: spouse housing: house current occupation: [employer] current occupational exposures/hazards: No caffeine: Yes Have you lived/traveled outside [place] in past 30 days?: No Contact w/someone who lives/traveled outside [place] past 30 days?: No Exposure to someone with infectious disease in past 14 days?: No Do you have a fever (greater than 100.4 F or 38 C)?: No Have you tested positive for COVID-19: No Exposed to someone with COVID-19 in past 14 days?: No Do you have a sore throat?: No Do you have a cough?: No Do you have any weakness?: No Are you experiencing any nausea/vomitting?: No Do you have any diarrhea?: No Are you experiencing any unusual bleeding?: No Do you have any muscle aches/pain?: No Do you have any abdominal pain?: No Are you experiencing loss of taste or smell?: No [facility] Anesthesia Checklist Patient Identification Patient Identification: Arm Band and Verbal (Name & ) Structural Data Admitted From: Home Planned Operative Procedure/s: carpal tunnel Consent for Planned Operative Procedure(s) Verified: Yes Verified Documents: Surgical Consent NPO Status Verified Time NPO: 00:00 Additional verifications Patient : No Anesthesia Reactions: Yes (TROUBLE WAKING UP AFTER SURGERY, NAUSEA) Hx Blood Transfusions: No Blood Transfusion Reaction: No Cephalosporin Allergy: No Previous Colonoscopy: No Cardiovascular Assessment Heart Sounds: S1 & S2 Pulse Strength: Baseline Pulse Rhythm: Regular Peripheral Edema: No Airway Assessment Mallampati Score:: Class II C-Spine Mobility Assessed: Yes TMJ Mobility Assessed: Yes Dentition: Dentures-good fit Neurological Assessment Level of Consciousness: Awake, Alert and Appropriate Numbness or tingling in extremities: No Anesthesia Plan Anesthesia Risk discussed: Yes Anesthesia Plan: Verified ASA Class: II Anesthesia Type: MAC
--- NOTE | 2024-08-04 09:56 | EXP.ANES.CKL ---
[facility] Disclaimer: The information contained in this section may have been updated after the patient was seen, as this information can be updated by other users. Medical History Left carpal tunnel syndrome History of trigger finger CORAZON (obstructive sleep apnea) Heart murmur Surgical History History of shoulder surgery History of neck surgery History of back surgery S/P foot surgery, left History of gastric bypass Family History Other Family history of cancer Family history of diabetes mellitus type II Family history of heart disease Family history of stroke Social History (Updated 08/04/24 @ 09:17 by Anju Partida RN) Smoking Status: Never smoker second hand exposure: No alcohol intake: never substance use type: denies use current occupational status: disabled Travel in the last 8 weeks: None household members: spouse housing: house current occupation: [employer] current occupational exposures/hazards: No caffeine: Yes Have you lived/traveled outside [place] in past 30 days?: No Contact w/someone who lives/traveled outside [place] past 30 days?: No Exposure to someone with infectious disease in past 14 days?: No Do you have a fever (greater than 100.4 F or 38 C)?: No Have you tested positive for COVID-19: No Exposed to someone with COVID-19 in past 14 days?: No Do you have a sore throat?: No Do you have a cough?: No Do you have any weakness?: No Are you experiencing any nausea/vomitting?: No Do you have any diarrhea?: No Are you experiencing any unusual bleeding?: No Do you have any muscle aches/pain?: No Do you have any abdominal pain?: No Are you experiencing loss of taste or smell?: No [facility] Anesthesia Checklist Patient Identification Patient Identification: Arm Band and Verbal (Name & ) Structural Data Admitted From: Home Planned Operative Procedure/s: bmt Consent for Planned Operative Procedure(s) Verified: Yes Verified Documents: Surgical Consent NPO Status Verified Time NPO: 00:00 Additional verifications Patient : No Anesthesia Reactions: Yes (TROUBLE WAKING UP AFTER SURGERY, NAUSEA) Hx Blood Transfusions: No Blood Transfusion Reaction: No Cephalosporin Allergy: No Previous Colonoscopy: No Cardiovascular Assessment Pulse Strength: Baseline Pulse Rhythm: Irregular Peripheral Edema: No Airway Assessment Mallampati Score:: Class II C-Spine Mobility Assessed: Yes TMJ Mobility Assessed: Yes Dentition: Good Dentition Neurological Assessment Level of Consciousness: Awake, Alert and Appropriate Hx Seizures: No Numbness or tingling in extremities: No Anesthesia Plan Anesthesia Risk discussed: Yes Anesthesia Plan: Verified ASA Class: III Anesthesia Type: General
[2024-08-04] MEDS: CEFAZOLIN SODIUM 2 GM in 0.9 % SODIUM CHLORIDE 100 ML IV (10:34)
--- NOTE | 2024-08-04 11:08 | EXP.OP.NOTE ---
Date of procedure: 08/04/24 Pre-op Diagnosis:: Left carpal tunnel syndrome Post-op Diagnosis:: Same Procedure performed:: Left endoscopic carpal tunnel release Surgeon:: Yuan Craft DO [employer](s):: Manuel OLIVER PANTOMIMIST:: Omar Ewing Anesthesia: MAC and local Estimated blood loss (mL): 0 Operative findings:: See dictation Operative note:: Patient identified preoperatively. Left wrist marked with yes my initials. Transferred to operative suite placed final operating bed. Given sedation. Left upper extremity was then prepped and draped in normal sterile fashion. Once prepped and draped final operative timeout performed to identify proper patient procedure and extremity. Everyone involved the case agreed. No counter indications to beginning. Did receive preoperative antibiotics. Marking pen was used to make planned incision over the volar wrist. Local anesthesia infiltrated around the incision and the release site with 1% lidocaine with epinephrine. Esmarch was used to exsanguinate extremity pneumatic tourniquet plated 250 mmHg. Skin knife is used to incise through skin dissection was taken down with retractors and single prong retractor to identify the most proximal aspect transverse carpal ligament. Once identified the small dilator followed by the larger dilator was placed into the carpal tunnel. This was followed by the 4.0 mm sled for the left side this was placed into the carpal tunnel and noted camera was then placed. Transverse carpal ligament clearly seen superiorly within the picture. The endoscopic probe was utilized to identify the most distal aspect the transverse carpal ligament rasp was used to remove soft tissue from the undersurface and then the hook blade was used to open transverse carpal ligament this was clearly viewed directly and complete release was obtained. Irrigation performed Sled removed incision closed with Monocryl incision and a sterile hand dressing placed patient waken from sedation taken recovery stable condition. Condition: stable Disposition: PACU Complications:: None apparent
[2024-08-04 11:10] VITALS: BP 92/67; PULSE 92; RESP 18; TEMP 36.2; O2SAT 99
[2024-08-04 11:20] VITALS: BP 121/72; PULSE 96; RESP 20; O2SAT 100
[2024-08-04 11:30] VITALS: BP 119/68; PULSE 94; RESP 20; O2SAT 100
[2024-08-04 11:37] VITALS: BP 127/89; PULSE 95; RESP 20; O2SAT 100
== END 2024-08-04 11:37 | disposition home or self-care (01) ==
PROVIDERS: PCP Internal Medicine Adolescent Medicine; Visit Provider Orthopaedic Surgery
PROC: (CPT 64721; principal; 2024-08-04 10:00)
DX: G56.02 Carpal tunnel syndrome, left upper limb (principal)
CPT/HCPCS: 29848; 96374; J0690; J3010; J7120

== ENCOUNTER 2024-09-15 13:20 | Outpatient (CLI) | payer MEDICARE, SELFPAY ==
--- NOTE | 2024-09-15 13:24 | XR_ITS ---
FINAL REPORT CLINICAL HISTORY: Lt hip pain and decreased mobility, nki COMPARISON: None FINDINGS: AP and frog leg views of the left hip and an AP view of the pelvis were obtained. There is no acute fracture or dislocation. Degenerative joint disease is present, more severe in the right hip than the left. Soft tissues are unremarkable. IMPRESSION: Degenerative joint disease, more severe in the right hip than the left. Reviewed, Interpreted and Dictated by Laura Mendoza MD Transcribed by Mis Perez Authenticated and . [facility]
--- NOTE | 2024-09-15 13:24 | XR_ITS ---
FINAL REPORT CLINICAL HISTORY: Rt hip pain and decreased mobility, nki COMPARISON: None FINDINGS: AP and frog leg views of the right hip and an AP view of the pelvis were obtained. There is no acute fracture or dislocation. There is advanced degenerative joint disease of the right hip, with subchondral cysts involving both the acetabulum and the femoral head. Soft tissues are unremarkable. IMPRESSION: Advanced degenerative joint disease of the right hip as described. Reviewed, Interpreted and Dictated by Laura Mendoza MD Transcribed by Mis Perez Authenticated and [facility]
== END 2024-09-15 23:59 | disposition home or self-care (01) ==
LOC: RAD 13:21
PROVIDERS: PCP Nurse Practitioner Family; Visit Provider Nurse Practitioner Family
DX: M25.551 Pain in right hip (principal); M25.552 Pain in left hip
CPT/HCPCS: 73502

== ENCOUNTER 2025-01-17 10:00 | Outpatient (RCR) | payer MEDICARE, SELFPAY | END 2025-01-17 23:59 | disposition home or self-care (01) | LOC: PT 10:00 | PROVIDERS: PCP Nurse Practitioner Family; Visit Provider Orthopaedic Surgery Adult Reconstructive Orthopaedic Surgery | DX: M16.11 Unilateral primary osteoarthritis, right hip (principal); Z96.641 Presence of right artificial hip joint | CPT/HCPCS: 97110; 97116; 97162; 97530 ==

== ENCOUNTER 2025-02-17 13:16 | Outpatient (CLI) | payer MEDICARE, SELFPAY ==
--- OUTSIDE RECORDS SUMMARY | 2024-12-27 06:20 | XMS_ITS | Encounter Summary ---
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 Name Role Phone Ruel Levi MD Primary Care Provider [phone] Reason for Referral * Consultation (Routine) - Authorized Specialty Diagnoses / Procedures Referred By Nigel yan Referred To Contact Physical Therapy Diagnoses Arthritis of right hip Ruel Gomes MD [address] [place] [phone] Phone: tel: fax: Referral ID Status Reason Start Date Expiration Date Visits Requested Visits Authorized [id number] Authorized Specialty Services Required 12/27/2024 06/28/2026 1 1 Reason for Visit * Auth/Cert (Routine) Specialty Diagnoses / Procedures Referred By Nigel yan Referred To Contact Diagnoses Unilateral primary osteoarthritis, right hip Unilateral primary osteoarthritis, right hip [M16.11] Procedures NC TOTAL HIP ARTHROPLASTY ARTHROPLASTY, HIP, TOTAL, ANTERIOR APPROACH Ruel Gomes MD [address] [place] [phone] Phone: tel: fax: [facility] [address] [place] [address] Phone: tel: Referral ID Status Reason Start Date Expiration Date Visits Re quested Visits Authorized [id number] 1 1 Encounter Details Date Type Department Care Team (Latest Contact Info) Description 12/27/2024 6:20 AM EDT - 12/28/2024 12:59 PM EDT Hospital Encounter [facility] [address] [place] [address] Ruel [facility]omes MD [address] [facility] [address] [place] [address] Arthritis of right hip (Primary Dx); Unilateral primary osteoarthritis, right hip Discharge Disposition: Home or Self Care Social History Tobacco Use Types Packs/Day Years Used Date Smoking Tobacco: Never Passive Smoke Exposure: Never Smokeless Tobacco: Never Alcohol Use Standard Drinks/Week Comments Never 0 (1 standard drink = 0.6 oz pur e alcohol) Comments No Sex and Gender Information Value Date Recorded Sex Assigned at Not on file Legal Sex Female 7:32 PM EDT Gender Identity Not on file Sexual Orientation Not on file documented as of this encounter Last Filed Vital Signs Vital Sign Reading Time Taken Comments Blood Pressure 111/60 12/28/2024 10:57 AM EDT Pulse 82 12/28/2024 10:57 AM EDT Temperature 36.5 C (97.7 F) 12/28/2024 10:57 AM EDT Respiratory Rate 16 12/28/2024 2:58 AM EDT Oxygen Saturation 100% 12/28/2024 10:57 AM EDT Inhaled Oxygen Concentration - - Weight 76.2 kg (168 lb) 12/27/2024 6:39 AM EDT Height 162.6 cm (5' 4 ) 12/27/2024 6:39 AM EDT Body Mass Index 28.84 12/27/2024 6:39 AM EDT documented in this encounter Functional Status * Calculated C-SSRS Risk Score (Lifetime/Recent) Answer Date of Assessment Author No Risk Indicated 12/28/2024 7:47 AM EDT Tyler Giordano RN * Question Answer Date of Assessment Author 1. Wish to be (Past 1 Month) No 12/28/2024 7:47 AM EDT Tyler Jimenez RN 2. Non-Specific Active Suici martinez Thoughts (Past 1 Month) No 12/28/2024 7:47 AM EDT Julissa Jimenez RN 6. Suicidal Behavior (Lifetime) No 7:47 AM EDT Tyler Jimenez RN documented as of this encounter Discharge Instructions * Discharge Instructions* Douglas Ang MD - 12/27/2024 6:34 AM EDT 1. You will be on Eliquis 2.5mg twice daily for 28 days for deep vein thrombosis prevention. It is important that you complete all 28 days of your medication. 2. Please see your discharge medication list for the post-operative medications you have been given. Call the clinic with any questions or concerns. 3. You have been given Docusate Sodium to take daily to prevent constipation while taking narcotic pain medications. Take this as long as you are taking narcotics. You can also begin Miralax daily and continue until you have weaned off narcotic pain medications. If you have had no bowel movement onpost-op day #3 you need to take Milk of Magnesia as directed over the counter. Then if no bowel movement by post-op day #5 you need to use a Dulcolax Suppository over the counter as directed. If still no bowel movement at that time your need to call the clinic. documented in this encounter Medications at Time of Discharge acetaminophen (Tylenol) 500 MG tablet Take 2 tablets by mouth every 8 hours. 100 tablet 5 apixaban (Eliquis) 2.5 MG tablet Take 1 tablet by mouth 2 times a day. For 4 weeks post-op for blood clot prevention 56 tablet 5 diazePAM (Valium) 5 MG tablet Take 1 tablet by mouth nightly. Diclofenac Sodium 3 % gel Apply 1 g topically nightly. ibuprofen 200 MG tablet Take 3 tablets by mouth every 6 hours as needed for mild pain. Multiple Vitamin (Stress Formula) tablet Take 1 tablet by mouth 1 time each day. naloxone (Narcan) 4 mg/0.1 mL nasal spray 1. Give 1 spray in nostril for no/slow breathing or cannot wake after opioid use 2. Call 911 3. Repeat in other nostril if symptoms continue 1 each 5 ondansetron ODT (Zofran-ODT) 4 MG disintegrating tablet Dissolve 1 tablet on the tongue every 8 hours as needed for nausea or vomiting. 20 tablet 5 oxyCODONE (Roxicodone) 5 MG immediate release tablet Take 1 tablet by mouth every 6 hours as needed for severe pain. 30 tablet 5 pregabalin (Lyrica) 50 MG capsule Take 1 capsule by mouth daily. 5 traMADol (Ultram) 50 MG tablet Take 1 tablet by mouth every 4 hours as needed for severe pain. 60 tablet 5 cefadroxil (Duricef) 500 MG capsuleIndications: Arthritis of right hip Take 1 capsule by mouth 2 times a day for 7 days. To prevent post-op infection 14 capsule 5 01/04/20 25 docusate sodium (Colace) 250 MG capsule Take 1 capsule by mouth 2 times a day. To prevent constipation while taking pain medications 60 capsule 5 01/27/20 25 omeprazole (PriLOSEC) [address] capsule Take 1 capsule by mouth daily for 28 days. Do not crush or chew. 28 capsule 5 01/25/20 25 tranexamic acid (Lysteda) 650 MG tablet tablet Take 1 tablet by mouth 3 times a day for 3 days. 9 tablet 5 12/31/19 25 documented as of this encounter Miscellaneous Notes * Nursing Note - Tyler Jimenez RN - 12/28/2024 12:59 PM EDT Pt d/c'd per MD order. Pt received edu r/t admitting Dx & Meds. IV lines removed as appropriate. Scripts and/or medications received by pt. All teaching pertaining to Dx and MD orders performed. Teach back and/or verbalization of pt understanding. * Progress Notes - Paola Gonzalez - 12/28/2024 10:52 AM EDT Physical Therapy Non-billable Reassessment/Treatment Patient Name: Juliane Ceballos Today's Date: 12/28/2024 PT Discharge Recommendations: Outpatient PT, Home with assistance ( to provide assistance athome) Equipment Recommended: Patient owns appropriate equipment (rolling walker owned by patient) History Juliane Ceballos is 59 y.o. female admitted 12/27/2024 for work-up of Unilateral primary osteoarthritis,right hip. Problem List Active Hospital Problems Diagnosis Date Noted Primary osteoarthritis of right hip 12/28/2024 Arthritis of right hip 12/27/2024 Procedures 12/27/2024 Procedure(s): ARTHROPLASTY, HIP, TOTAL, ANTERIOR APPROACH Past Medical History Patient has a past medical history of Chronic back pain, Delayed emergence from general anesthesia,and Murmur. Past Surgical History Patient has a past surgical history that includes Lumbar fusion; Rotator cuff repair (Left); Carpaltunnel release (Bilateral); Hysterectomy; Tubal ligation; Gastric restriction surgery; Cervical fusion; Foot surgery (Left); ORIF ankle fracture; Other surgical history (Bilateral); and Vertebroplasty. Precautions Left Lower Extremity Weight Bearing Status: Weight Bearing as Tolerated Right Lower Extremity Weight Bearing Status: Weight Bearing as Tolerated Left Upper Extremity Weight Bearing Status : Weight bearing as tolerated Right Upper Extremity Weight Bearing Status : Weight bearing as tolerated Subjective I am ready to go home - but I am glad I stayed overnight. Participants in Care Family/Caregiver Present: Yes Family/Caregiver: Spouse L Tacker: Not Applicable Presentation Oxygen Therapy: None (Room air) Lines and Tubes: Intravenous access Pre-Session: Supine, Head of bed elevated Pre-Session Comments: Nurse and patient agreeable to session Post-Session: Sitting in chair, Call light in reach, RN notified Post-Session Comments: All needs met; no chair alarm as patient and cleared in room. Peripheral IV 12/27/24 Anterior;Left Forearm (Active) Home Living/Set-up Lives With: Spouse Home Type: House Home Adaptive Equipment: None, Bedside commode Home Layout: One level, Stairs to enter with rails Number of Stairs: 1 Bathroom: Tub/Shower: Tub/Shower combo, Tub transfer bench Bathroom: Toilet: Tall Bathroom: Accessibility: Accessible Prior Level of Function Receives Help From: No assist required prior to admission Level of Mobility: Ambulatory- community Mobility Wharton: Independent gait without device History of Falls: No ADL Performance: Independent Patient/Family Goals I am much better today and feel ready to go home - that is my goal Objective Pain Patient had no c/o's pain prior to, during or after session. Delirium Screening Emery Agitation Sedation Scale (RASS): Alert and calm Confusion Assessment Method-ICU (CAM-ICU/PCAM-ICU) Feature 3: Altered Level of Consciousness: Negative Cognition Overall Cognitive Status: Within Functional Limits Arousal/Alertness: Appropriate responses to stimuli Mood/Behavior: Alert Orientation Level: Oriented X4 Single Step Commands: Consistently Multi-Step Commands: Consistently Method of Communication: Verbal Right Upper Extremity Examination RUE Assessment: Within Functional Limits Manual Muscle Testing - RUE: Within functional limits Left Upper Extremity Examination LUE ROM Assessment LUE Assessment: Within Functional Limits Manual Muscle Testing - LUE Manual Muscle Testing - LUE: Within functional limits Right Lower Extremity Examination RLE ROM Assessment RLE Assessment: Within Functional Limits Manual Muscle Testing - RLE Manual Muscle Testing - RLE: Within functional limits except (Cannot assess due to procedure but grossly 4/5) Left Lower Extremity Examination LLE Assessment: Within Functional Limits Manual Muscle Testing: Within functional limits Therapeutic Activity (11 minutes) Pt performed transitional skills and standing activity to promote functional mobility and progress activity tolerance. Patient participating in therapeutic activities as described in detail in sections below. Bed Mobility Bed Mobility Exam: Rolling/Turning Level of Wharton: Independent Assistive Device: Bed rails Bed Mobility Exam: Scooting/Bridging Level of Wharton: Independent Physical/Nonphysical Assist: Supervision, Verbal Cues, Minimal cues Bed Mobility Exam: Supine to Sit Level of Wharton: Independent Physical/Nonphysical Assist: Supervision, Verbal Cues, Minimal cues Transfers Transfer Exam: Sit to stand Level of Wharton: Modified independence Physical/Nonphysical Assist: Supervision, Verbal Cues, Minimal cues Assistive Device: Walker, rolling Transfer Exam: Stand to Sit Level of Wharton: Modified independence Physical/Nonphysical Assist: Supervision, Verbal Cues, Minimal cues Assistive Device: Walker, rolling Transfer Exam: Bed to Chair/Chair to Bed Level of Wharton: Contact guard Physical/Nonphysical Assist: Supervision, Verbal Cues, Minimal cues Assistive Device: Walker, rolling Toilet Transfer Level of Wharton: Contact guard Physical/Nonphysical Assist: Supervision, Minimal cues, Verbal Cues Type of Transfer: Ambulation, To toilet Assistive Device: Walker, rolling Balance Postural Appearance Posture: Within Functional Limits Static Sitting Balance Static Sitting-Balance Support: No upper extremity support Static Sitting-Level of Assistance: Independent Dynamic Sitting Balance Dynamic Sitting-Balance Support: No upper extremity support, Feet supported Dynamic Sitting-Balance: Anterior/Posterior weight shifts, Lateral weight shifts, Reaching across midline Level of Assistance: Supervision Dynamic Sitting - Interventions: While getting dressed; will be able to supervise at home. Static Standing Balance Static Standing-Balance Support: Right upper extremity support, Left upper extremity support Static Standing-Level of Assistance: Supervision Dynamic Standing Balance Dynamic Standing-Balance Support: Right upper extremity support, Left upper extremity support Dynamic Standing-Balance: Lateral weight shifts, Anterior/Posterior weight shifts, Reaching across midline Dynamic Standing Level of Assistance: Supervision Gait Training (16 minutes) Device: Rolling walker Apparatus: None Assistance: Modified independence Distance: Greater than 250 feet on level surface Gait Analysis: antalgic gait on R lower extremity; difficulty with sequencing and moving walker farenough forward. Gait Training Interventions: cues for sequencing and movement and placement of walker; much better today with sequencing and safety than prior session Therapeutic Exercise Access Code: [email or web address] URL: [email or web address] Date: 12/27/2024 Prepared by: Paola Gonzalez Program Notes Anterior Hip Exercises - Phase 1 (Days 1-7) Ankle Pumps - 3 x daily - 7 x weekly - 10 reps - Phase 1 (Days 1-7) Knee Push Downs - 3 x daily - 7 x weekly - 10 reps - 3 hold - Phase 1(Days 1-7) Buttocks Squeeze - 3 x daily - 7 x weekly - 10 reps - 3 hold - Phase 1 (Days 1- 7) Heel Slide (Supine) - 3 x daily - 7 x weekly - 10 reps - 3 hold - Phase 1 (Days 1-7) Short Arc Quad - 3 x daily - 7 x weekly - 10 reps - 3 hold - Phase 1 (Days 1-7) Hip abduction/Adduction - 3 x daily - 7 xweekly - 10 reps - Phase 1 (Days 1-7) Straight Leg Raises - 3 x daily - 7 x weekly - 10 reps - Phase 1 (Days 1-7) Long Arc Quad - 3 x daily - 7 x weekly - 10 reps - 3 hold - Phase 1 (Days 1-7) SeatedKnee Flexion - 3 x daily - 7 x weekly - 10 reps - 3 hold - Phase 2 ( Days 8-14) Seated Ball Squeezes - 3 x daily - 20 reps - 3 hold - Phase 2 ( Days 8-14) Seated Hip Abduction with Towel - 3 x daily - 20 reps - Phase 2 ( Days 8-14) Standing Marching - 3 x daily - 10 reps - 3 hold - Phase 2 ( Days 8-14) Hip Abduction - 3 x daily - 10 reps - 3 hold - Phase 2 ( Days 8-14) Standing Hip Flexion - 3 x daily - 10 reps - 3 hold - Phase 2 ( Days 8-) Hamstring Curl - 2 x daily - 20 reps - Phase 2 ( Day8-) Standing Toe Raises - 3 x daily - 20 reps - 3 hold - Phase 2 ( Days 8-) Standing Heel Raise- 3 x daily - 20 reps - Wall slide Phase 3 Days 15- - 3 x daily - 20 reps - Phase 3 ( Days 15-)Single Leg Step-Up - 3 x daily - 20 reps - Phase 3( Days 15-) Step Down - 3 x daily - 10 reps - Phase 3 ( Days 15-) Bilateral Heel Raises - 3 x daily - 20 reps - Phase 3 ( Days 15-) Balance : Unilateral ( Single Leg Stance ) - 3 x daily - 4 reps - 30 hold - Phase 3 ( Days 15-) Side Step - 3x daily - 4 reps Patient Education - Anterior Hip Precaution Instructions . Reviewed prior session with patient and - had no questions. Standardized Assessments Standardized Assessments Standardized Assessments: [facility] 6-Clicks Mobility Assessment [facility] 6-Clicks Mobility Assessment Difficulty patient has turning over in bed (including adjusting bedclothes, sheets, and blankets)?:None Difficulty patient has sitting down on and standing up from a chair with arms (wheelchair, bedside commode, etc.)?: None Difficulty patient has moving from lying on back to sitting on the side of the bed?: None How much help does the patient need moving to and from a bed to a chair (including a wheelchair)?: None How much help does the patient need to walk in hospital room?: None How much help does the patient need climbing 3-5 steps with a railing?: A little [facility] 6-Clicks Mobility Assessment Total : 23 Assessment Patient tolerated treatment without adverse events today, required skilled intervention to guide appropriate performance of activities with cuing, demos and feedback provided as needed. Pt educated on interventions, relation to condition, and relevance to improving function and achieving goals. Due to functional ability, patient would be most appropriate for home with outpatient therapy services to continue with ROM, strengthening and gait training. Barriers to Discharge: (no barriers to discharge) Eval Complexity History Profile: 1 - 2 personal factors and/or comorbidities Clinical Presentation: Evolving clinical presentation with changing characteristics Clinical Decision Making: Moderate complexity PT Recommendations Discharge Destination: Outpatient PT, Home with assistance ( to provide assistance at home) Discharge Equipment: Patient owns appropriate equipment (rolling walker owned by patient) Plan Patient no longer demonstrates need for inpatient physical therapy services. Patient to be discharged from physical therapy. Written by Paola Gonzalez on 12/28/24 at 10:52 AM. * Payer Review Note - Beatrice Delcid - 12/28/2024 10:45 AM EDT Pt not meeting criteria for an IP admission per Medicare guidelines, was sent for secondary review,came back as extended recovery, email to attending, extended recovery order placed. Chat to CM. * Care Plan - Tyler Jimenez RN - 12/28/2024 10:24 AM EDT Problem: Adult Inpatient Plan of Care Goal: Plan of Care Review Outcome: Ongoing, Progressing Flowsheets (Taken 12/28/2024 1021) Plan of Care Reviewed With: patient Goal: Patient-Specific Goal (Individualized) Outcome: Ongoing, Progressing Flowsheets (Taken 12/28/2024 0762) Patient/Family-Specific Goals (Include Timeframe): Patient will remain free from harm throughout shift Individualized Care Needs: Patient safety Anxieties, Fears or Concerns: None verbalized Goal: Absence of Hospital-Acquired Illness or Injury Outcome: Ongoing, Progressing Intervention: Identify and Manage Fall Risk Flowsheets (Taken 12/28/2024 0789) Safety Promotion/Fall Prevention: safety round/check completed nonskid shoes/slippers when out of bed room organization consistent Intervention: Prevent Skin Injury Flowsheets (Taken 12/28/2024746) Body Position: supine Skin Protection: protective footwear used Intervention: Prevent and Manage VTE (Venous Thromboembolism) Risk Flowsheets (Taken 12/28/2024746) VTE Prevention/Management: bilateral lower extremity SCDs (sequential compression devices) on Intervention: Prevent Infection Flowsheets (Taken 12/28/2024746) Infection Prevention: hand hygiene promoted Goal: Optimal Comfort and Wellbeing Outcome: Ongoing, Progressing Intervention: Monitor Pain and Promote Comfort Flowsheets (Taken 12/28/2024 102) Pain Management Interventions: pain management plan reviewed with patient/caregiver Intervention: Provide Person-Centered Care Flowsheets (Taken 12/28/2024746) Trust Relationship/Rapport: care explained choices provided emotional support provided empathic listening provided questions answered questions encouraged reassurance provided thoughts/feelings acknowledged Problem: Infection Goal: Absence of Infection Signs and Symptoms Outcome: Ongoing, Progressing Intervention: Prevent or Manage Infection Flowsheets (Taken 12/28/2024746) Infection Management: aseptic technique maintained Fever Reduction/Comfort Measures: lightweight clothing Isolation Precautions: precautions maintained protective Problem: Pain Acute Goal: Optimal Pain Control and Function Outcome: Ongoing, Progressing Intervention: Optimize Psychosocial Wellbeing Flowsheets (Taken 12/28/2024746) Supportive Measures: active listening utilized Diversional Activities: television Intervention: Develop Pain Management Plan Flowsheets (Taken 12/28/20241020) Pain Management Interventions: pain management plan reviewed with patient/caregiver Intervention: Prevent or Manage Pain Flowsheets (Taken 12/28/2024746) Bowel Elimination Promotion: ambulation promoted Sleep/Rest Enhancement: regular sleep/rest pattern promoted natural light exposure provided Medication Review/Management: medications reviewed Problem: Fall Injury Risk Goal: Absence of Fall and Fall-Related Injury Outcome: Ongoing, Progressing Intervention: Identify and Manage Contributors Flowsheets (Taken 12/28/2024746) Medication Review/Management: medications reviewed Self-Care Promotion: independence encouraged Intervention: Promote Injury-Free Environment Flowsheets (Taken 12/28/2024746) Safety Promotion/Fall Prevention: safety round/check completed nonskid shoes/slippers when out of bed room organization consistent Problem: Hip Arthroplasty Goal: Optimal Coping Outcome: Ongoing, Progressing Intervention: Support Psychosocial Response to Surgery and Mobility Changes Flowsheets (Taken 12/28/2024 0747) Supportive Measures: active listening utilized Goal: Absence of Bleeding Outcome: Ongoing, Progressing Goal: Effective Bowel Elimination Outcome: Ongoing, Progressing Intervention: Enhance Bowel Motility and Elimination Flowsheets (Taken 12/28/2024 1021) Bowel Elimination Management: toileting offered Bowel Motility Enhancement: ambulation promoted Goal: Fluid and Electrolyte Balance Outcome: Ongoing, Progressing Intervention: Monitor and Manage Fluid and Electrolyte Balance Flowsheets (Taken 12/28/2024 1021) Fluid/Electrolyte Management: fluids provided Goal: Optimal Functional Ability Outcome: Ongoing, Progressing Intervention: Promote Optimal Functional Status Flowsheets (Taken 12/28/2024 0747) Activity Management: activity adjusted per tolerance Self-Care Promotion: independence encouraged Goal: Intact Neurovascular Status Outcome: Ongoing, Progressing Intervention: Prevent or Manage Neurovascular Compromise Flowsheets (Taken 12/28/2024 1021) Compartment Syndrome Management: active flexion/extension encouraged Compartment Syndrome Surveillance: no pain with passive muscle stretch Goal: Optimal Pain Control and Function Outcome: Ongoing, Progressing Intervention: Prevent or Manage Pain Flowsheets Taken 12/28/2024 1021 Pain Management Interventions: pain management plan reviewed with patient/caregiver Taken 12/28/2024 0747 Diversional Activities: television Goal: Effective Urinary Elimination Outcome: Ongoing, Progressing Intervention: Monitor and Manage Urinary Retention Flowsheets (Taken 12/28/2024 1021) Urinary Elimination Promotion: toileting offered * Progress Notes - Susi Irizarry PA - 12/28/2024 9:07 AM EDT [facility] Medicine Progress Note Subjective: Dressed and sitting in chair on exam, at bedside. Nausea immediately post-op has since improved and was able to tolerate breakfast this am. Ambulated with therapy in hallway with well controlled right hip pain. Voiding without difficulty, reports BM this am. Review of Systems Constitutional: Negative for chills and fever. Respiratory: Negative for cough and shortness of breath. Cardiovascular: Negative for chest pain and palpitations. Gastrointestinal: Negative for abdominal pain, constipation, nausea (resolved) and vomiting. Genitourinary: Negative for difficulty urinating. Musculoskeletal: Positive for arthralgias. Negative for myalgias. Neurological: Negative for dizziness and light-headedness. Objective Physical Exam Vitals and nursing note reviewed. Constitutional: General: She is not in acute distress. HENT: Head: Normocephalic and atraumatic. Mouth/Throat: Mouth: Mucous membranes are moist. Cardiovascular: Rate and Rhythm: Normal rate and regular rhythm. Heart sounds: No murmur heard. Pulmonary: Effort: Pulmonary effort is normal. No respiratory distress. Abdominal: General: There is no distension. Palpations: Abdomen is soft. Tenderness: There is no abdominal tenderness. Musculoskeletal: General: Swelling (right anterolateral hip, mild) present. Right lower leg: No edema. Left lower leg: No edema. Comments: Right anterior hip surgical dressing clean and dry Skin: General: Skin is warm and dry. Capillary Refill: Capillary refill takes less than 2 seconds. Neurological: General: No focal deficit present. Mental Status: She is alert and oriented to person, place, and time. Psychiatric: Mood and Affect: Mood normal. Behavior: Behavior normal. Temp: [36.3 ??C (97.3 ??F)-36.8 ??C (98.3 ??F)] 36.6 ??C (97.8 ??F) Heart Rate: [68-102] 77 Resp: [0-20] 16 BP: (97-137)/(53-83) 116/74 Recent labs: Recent labs and imaging personally reviewed and noted below: CBC: No results found for: WBC , RBC , HGB , HCT , PLT , MCV , MCH , MCHC , RDW , NRBC Differential: No results found for: WBC , NEUTOPHILPCT , LYMPHOPCT , MONOPCT , EOSPCT , ANEUT Coagulation: No results found for: INR , PT , PTT , CLFGN Renal: No results found for: NA , K , CL , CO2 , BUN , CREATININE , GLUCOSE , CALCIUM , ICAS , MG , PHOS Liver: No results found for: AST , ALT , ALPHO , BILITOT , BILIDIR Glucose: No results found for: PGLU Lab Results Component Value Date HGBA1C 5.6 12/14/2024 Medications: Scheduled: acetaminophen, 1,000 mg, Oral, q8h PHYLICIA apixaban, 2.5 mg, Oral, BID calcium-vitamin D, 1 tablet, Oral, BID with meals gabapentin, 100 mg, Oral, q8h pantoprazole, 40 mg, Oral, Daily before breakfast polyethylene glycol, 17 g, Oral, Daily with breakfast scopolamine, 1 patch, Transdermal, Once senna-docusate, 2 tablet, Oral, Nightly traMADol, 100 mg, Oral, q8h PHYLICIA Continuous: Current Continuous Medications[1] As needed: bethanechol, 20 mg, Once PRN bisacodyl, 10 mg, BID PRN diphenhydrAMINE, 12.5 mg, q4h PRN HYDROmorphone, 0.5 mg, q6h PRN magnesium hydroxide, 30 mL, BID PRN ondansetron, 4 mg, q6h PRN oxyCODONE, 5 mg, q4h PRN traMADol, 50 mg, q12h PRN Assessment/Plan Active Problems: Arthritis of right hip Assessment and Plan: Juliane Ceballos is a 59 y.o. female with history of prediabetes, HTN, CORAZON (all resolved after weight loss s/p gastric sleeve) and OA who presented for elective right total hip arthroplasty. Medicine isconsulted for medical co-management. Right hip osteoarthritis s/p BRANDON with associated reduced mobility - s/p right BRANDON 12/27 - PT/OT rec home with assist - DVT ppx: Eliquis, as per primary - Analgesia and bowel regimen per priamry Overweight - History of HTN, prediabetes, and CORAZON that has since resolved following significant weight loss s/t gastric sleeve - Pre-op ECG reviewed with NSR - Follow up with PCP after discharge Thank you for allowing us to participate in this patient's care. Please reach out with questions orconcerns. [facility] Secure chat preferred [1] lactated Ringer's, 50 mL/hr * Mai Cheema - María Montgomery, RN - 12/28/2024 8:40 AM EDT Images from the original note were not included. 22245 After Hip Replacement: Using Your Walker After hip replacement, you?ll likely use a walker to get around while you recover. There are a few types of walkers: ?? The standard nonrolling walker ?? The 2-wheeled (front) rolling walker ?? The 4-wheeled rolling walker Your physical therapist or occupational therapist will teach you how to use a walker safely and help you choose the best one for you. Later, you may change from a walker to crutches or a cane. Using a walker ?? Move the walker a few inches in front of you. ?? Lean on the walker so it supports you. Step into the center with your operated leg. Then step forward with your good leg. Repeat. ?? As you get more comfortable, you?ll be able to move the walker as you step. Walking up a curb ?? Move your feet and walker as close to the curb as possible. ?? Put your weight on both legs, and then lift the walker onto the curb. ?? Step on the curb with your good leg. Using the walker to support your weight, bring up your operated leg. Walking down a curb ?? Move your feet and walker as close to the curb as possible. ?? Lower the walker onto the ground, keeping its back legs against the curb. ?? Using the walker to support your weight, lower your operated leg. Then step down with your good leg. ?? Never climb stairs or use an escalator with your walker. Last Reviewed Date: 2024 00:00:00 ?? [id number] [employer]. All rights reserved. This information is not intended as a substitute for professional medical care. Always follow your healthcare professional's instructions. * Mai On[facility] - María Montgomery RN - 12/28/2024 8:40 AM EDT Images from the original note were not included. 99881 Using an Incentive Spirometer An incentive spirometer is a handheld device that helps you do deep breathing exercises after surgery. It also helps lower the risk of breathing problems if you have a lung disease or condition. These exercises expand your lungs, aid in circulation, and may help prevent pneumonia. Deep breathing exercises also help you breathe better and improve lung function by: ?? Keeping your lungs clear. ?? Making your breathing muscles stronger. ?? Helping prevent respiratory complications or problems. The incentive spirometer gives you a way to take an active part in your recovery. A nurse or respiratory therapist will teach you breathing exercises. To do these exercises, you will breathe in through your mouth and not your nose. The incentive spirometer only works correctly if you breathe in through your mouth. Deep breathing expands the lungs, aids circulation, and helps prevent pneumonia. Your health care provider or their staff will tell you how to use the device, your targeted volume(s), and provide other helpful tips to prevent complications (such as pain, dizziness, feeling lightheaded) when blowing in the incentive spirometer. Steps to clear lungs Step 1. Exhale normally. Then, inhale normally. ?? Relax and breathe out. Step 2. Place your lips tightly around the mouthpiece. ?? Make sure the device is upright and not tilted. ?? Sit up and breathe out (exhale) fully. ?? Tightly seal your lips around the mouthpiece. Step 3. Inhale as much air as you can through the mouthpiece. Don't breathe through your nose. ?? Breathe in (inhale) slowly and deeply. ?? Hold your breath long enough to keep the balls, piston, or disk raised for at least 3 to 5 seconds, or as instructed by your health care provider. ?? Exhale slowly to allow the balls, piston, or disk to fall before repeating. Note: Some spirometers have an indicator to let you know that you are breathing in too fast. If theindicator goes off, breathe in more slowly. Step 4. Repeat the exercise regularly. ?? Do sets of 10 exercises every hour while you're awake, or as instructed by your health care provider. Don't do more than 30 breaths in each set. ?? If you were taught deep breathing and coughing exercises, do them regularly as instructed by your provider, nurse, or respiratory therapist. Follow-up care Make a follow-up appointment as directed by your health care provider. Also, follow up with your provider as advised if your symptoms don't improve or continue to get worse. When to contact your doctor Contact your health care provider right away if you have: ?? A fever 100.4?? (38??C) or higher, or as advised by your provider. ?? Brownish, bloody, or smelly sputum (phlegm that you cough up). Call 911 Call 911 if any of these occur: ?? Shortness of breath that doesn't get better after taking your medicine ?? Cool, moist, pale, or blue skin ?? Trouble breathing or swallowing, wheezing ?? Fainting or loss of consciousness ?? Feeling of dizziness or weakness, or a sudden drop in blood pressure ?? Feeling very ill ?? Lightheadedness ?? Chest pain or rapid heart rate Last Reviewed Date: 2024 00:00:00 ?? [id number] [employer]. All rights reserved. This information is not intended as a substitute for professional medical care. Always follow your healthcare professional's instructions. * Mai OnIR - María Montgomery RN - 12/28/2024 8:40 AM EDT Images from the original note were not included. 29201 Preventing Deep Vein Thrombosis After Surgery In the days and weeks after surgery, you have a higher chance of developing a deep vein thrombosis (DVT). This is a condition in which a blood clot (thrombus) forms in a deep vein. They are most common in the leg. But a DVT may form in an arm or another deep vein in the body. A piece of the clot, called an embolus, can separate from the thrombus and travel to the lungs. A blood clot in the lungs is called a pulmonary embolus (PE). This can cut off the flow of blood to part or all of the lungs. It's a medical emergency and may cause . Doctors use the term venous thromboembolism (VTE) to describe both DVT and PE. They use the term VTE because the two conditions are very closely related and their prevention and treatment are similar. Prevention in the hospital or other facility Your doctor will usually prescribe one or more of the following to prevent blood clots: ?? Blood-thinner (anticoagulant). This medicine prevents blood clots. You take it by mouth, by injection, or through an I.V. (intravenous). Commonly used anticoagulants include warfarin and heparin. Newer anticoagulants may also be used, including rivaroxaban, apixaban, dabigatran, and enoxaparin. Sometimes the doctor may not give you an anticoagulant medicine. It's important that they discuss the risks and benefits with you. ?? Compression stockings. These elastic stockings fit tightly around your legs. They help keep blood flowing toward your heart by the pressure they apply. They prevent blood from pooling and forming blood clots. When you first put them on, the stockings may be uncomfortable. But after a while, you should get used to them. ?? Exercises. Simple exercises while you are resting in bed or sitting in a chair can help prevent blood clots. Move your feet in a crow or up and down. Do this 10 times an hour to improve circulation. ?? Getting out of bed and walking (ambulation). After surgery, a nurse will help you out of bed as soon as you are able. Moving around improves circulation and helps prevent blood clots. ?? Sequential compression device (SCD) or intermittent pneumatic compression (IPC). Plastic sleevesare wrapped around your legs and connected to a pump that inflates and deflates the sleeves. This applies gentle pressure to promote blood flow in the legs and prevent blood clots. These should be worn when you lie in bed or sit in a chair. Prevention at home Ankle exercises can help keep blood flowing in the veins. Deep vein thrombosis can happen even after you go home. Follow all instructions from your doctor. The following are some general guidelines about DVT prevention: ?? Blood-thinner medicine. If a blood thinner was prescribed, make sure you follow all directions about taking it. Be sure you know what foods and medicines may interact. And ask your doctor what to do if you forget to take a dose. ?? Compression stockings. Your doctor will tell you how often to wear and remove the stockings. Follow all instructions closely. Each time you remove your stockings, check your legs and feet for red areas or sores. If you see any changes, call your doctor right away. ?? Returning to activity. Follow all instructions about returning to activities. Be as active as you can. This improves blood flow and helps prevent a clot from forming. When in bed or in a chair, continue with the ankle exercises you did in the hospital. ?? Sequential compression device (SCD) or intermittent pneumatic compression (IPC). In some cases, this device may be recommended at home. If you are using this device at home, make sure you closely follow all instructions from your doctor. You will be instructed on how often and for how long to use the device. Remove the sleeves if you are up and walking. When to call your doctor You may have symptoms of a blood clot. Or you may have signs of bleeding from medicines to prevent clots. Contact your doctor right away if you have: ?? Pain, swelling, or redness in the leg, arm, or other area. ?? Blood in your urine or stool. ?? Very dark or tar-like stool. ?? Vomiting with blood. ?? Bleeding from the nose. ?? Bleeding from the gums. ?? A cut that won't stop bleeding. ?? Bleeding from the vagina. Call 911 Call 911 if you have: ?? Chest pain. ?? Shortness of breath. ?? A fast heartbeat. ?? Excessive sweating. ?? Fainting. ?? Coughing (may cough up blood). ?? Heavy or uncontrolled bleeding. Last Reviewed Date: 2024 00:00:00 ?? [id number] [employer]. All rights reserved. This information is not intended as a substitute for professional medical care. Always follow your healthcare professional's instructions. * [facility] - María Montgomery RN - 12/28/2024 8:40 AM EDT Images from the original note were not included. 73123 Preventing a Surgical Site Infection A risk of any surgery is an infection at the surgical site. The surgical site is a cut the surgeon makes in the skin to do the surgery. Surgical site infections can range in type. It may be a minor skin infection. Or it may be severe and include tissue under the skin or other organs. In some cases,a severe infection can cause . The information below tells you: ?? About surgical site infections. ?? What hospitals do to prevent them. ?? How they?re treated if they do occur. ?? What you can do to prevent an infection. Hand washing reduces the risk of infection. What causes a surgical site infection? Germs are everywhere. They?re on your skin, in the air, and on things you touch. Many germs are good. Some are harmful. Surgical site infections occur when harmful germs enter your body through the incision in your skin. Some infections are caused by germs that are in the air or on objects. But most are caused by germs found on and in your own body. Who is at risk for a surgical site infection? Anyone can have a surgical site infection. Your risk is higher if you: ?? Are an older adult. ?? Have a weak immune system. ?? Have other health conditions such as diabetes. ?? Take certain medicines, such as steroids. ?? Are a smoker. ?? Have certain types of surgery, such as abdominal surgery. ?? Have poor nutrition. ?? Are very overweight. ?? Have a surgery that lasts longer than 2 hours. What are the symptoms of a surgical site infection? An infection often shows up as skin redness, pain, and swelling around the incision that gets worse. Later, a cloudy or greenish-yellow fluid may come from the incision. The fluid may smell bad. The incision may pull apart or open up. You are likely to have a fever and may feel very ill. Symptoms can appear at any time. They may happen from hours to weeks after surgery. Implants such as an artificial knee or hip can become infected at any time after the surgery. How is a surgical site infection treated? ?? A surgical site infection is treated with antibiotics. The type of medicine you get will depend on what may be causing the infection. Most serious wound infections need wound care. In some cases, surgery may be needed on the infected wound. ?? An infected skin wound may be reopened and cleaned. A deep wound may need to be packed with gauze. The gauze is changed often until the wound starts to heal from the inside out. Your health care provider will decide the best way to treat your infection. ?? If an infection occurs where an implant is placed, the implant may be removed. ?? If you have an infection deeper in your body, you may need surgery to treat it. What hospitals do to prevent surgical site infections Many hospitals take these steps to help prevent surgical site infections: ?? Handwashing. Before the surgery, your surgeon and all surgery staff scrub their hands and arms with an antiseptic soap. ?? Clean skin. The site where your incision is made is carefully cleaned with an antiseptic solution. ?? Sterile clothing and drapes. The surgical team wears medical uniforms. These are known as scrub suits. They wear long-sleeved surgical gowns, masks, caps, shoe covers, and sterile gloves. Your body is fully covered with a large sterile sheet (sterile drape). There is an opening in the sheet where the incision is made. ?? Clean air. Operating rooms have special air filters. They use positive pressure airflow to prevent unfiltered air from entering the room. ?? Careful use of antibiotics. Antibiotics are given no more than 60 minutes before the incision ismade. They are generally stopped within 24 hours after surgery. This depends on the type of surgery. This helps kill germs but prevents problems that can occur when antibiotics are taken longer. ?? Controlled blood sugar levels. Your blood sugar level may rise. This can be because of the stress of the surgery. Your blood sugar level is watched closely to make sure it stays within a normal range. High blood sugar delays wound healing. This increases the risk of infection. ?? Controlled body temperature. A iovda-njrd-mghvgh temperature during or after surgery prevents oxygen from reaching the wound. This makes it harder for your body to fight infection. Hospitals may warm I.V. fluids, and provide warm-air blankets. Your temperature is watched throughout the surgery. ?? Safe hair removal. Any hair that must be removed is clipped right before the incision, not shaved with a razor. This prevents tiny nicks and cuts where germs can enter. ?? Wound care. After surgery, a closed wound is covered with a sterile dressing for 1 to 2 days. Open wounds are packed with sterile gauze and covered with a sterile dressing. What you can do to prevent a surgical site infection ?? Ask questions. Learn what your hospital is doing to prevent infection. ?? If instructed, shower or bathe with plain soap the night before and the day of your surgery. Follow all instructions you're given. You may be asked to use a special cleanser that you don?t rinse off. ?? If you smoke, stop as long as possible before and after the surgery. Ask your provider about ways to quit. ?? Take antibiotics only when your provider tells you to. Using antibiotics when they?re not neededcan create germs that are harder to kill. Finish the entire prescription of your antibiotics even if you feel better. ?? Ask health care workers to clean their hands with plain soap and water or with an alcohol-based hand hvac sheet metal installer before and after caring for you. Don?t be afraid to remind them. ?? After surgery, eat healthy foods. Care for your incision as directed by your health care team. When to contact your doctor Contact your provider or seek medical care right away if: ?? The pain at the surgical site gets worse. ?? A red streak, worse redness, or puffiness appears near the incision. ?? Yellowish, cloudy, or bad-smelling fluid leaks from the incision. ?? Your stitches dissolve before the wound heals. ?? You have a fever of 100.4?? F ( 38??C ) or higher, or as advised by your provider. ?? You have a tired feeling that doesn?t go away. Last Reviewed Date: 2024 00:00:00 ?? [id number] [employer]. All rights reserved. This information is not intended as a substitute for professional medical care. Always follow your healthcare professional's instructions. * Mai Cheema - María Montgomery, RN - 12/28/2024 8:40 AM EDT Images from the original note were not included. 223 After Total Hip Replacement After your hip replacement, you will need to follow these instructions to avoid complications. Follow these instructions from the time you go home until your doctor says you can stop. Incision care ?? If your incision has sutures or omid, do not shower until after you return to the clinic. ?? If your incision is closed with liquid skin adhesive, you may shower 24 hours after all drainagestops. ?? If your incision is covered with a waterproof dressing, you may shower when you feel comfortable. Remove this dressing after 10 days. ?? Sit on a shower chair or tub bench when you shower to keep from falling. Carefully wash around your incision with soap and water. Rinse the incision well. Then gently pat it dry. ?? Do not rub the incision or apply creams or lotions. ?? If your incision is not draining, you do not need a dressing over it. You may cover your incision with a light, dry bandage if you want. ?? Check your incision daily for redness, swelling, tenderness or drainage. Hip precautions ?? Most patients will not need to follow hip precautions, but you may be asked to avoid certain positions and movements for 8 weeks after surgery. We will teach you how to follow hip precautions, if needed. ?? If needed, the hip precautions after posterior hip replacement are: o Do not bend your hip past 90 degrees. o Do not cross your legs past midline. o Do not turn your surgery foot or leg inward. ?? If needed, the hip precautions after anterior hop replacement are: o Do not force your leg to extend backwards. You should be able to walk as normal with a cane. o Do not turn your surgery foot or let outwards. Activity and exercise ?? Follow your doctor?s orders for how much weight to put on the operated leg. ?? Follow hip precautions for eight weeks after surgery, if needed. ?? Walk often. Do the exercise physical therapy taught you three times a day. ?? Slowly increase your activity each day. ?? Walk up and down stairs with support. Use the railing if possible. Try one step at a time - goodhip up, bad hip down. ?? Use a cane, crutches, a walker or handrails until your balance, flexibility and strength improve. And remember to ask for help from others when you need it. ?? Do not engage in any jarring sports or activities until your doctor says it is OK. Examples are jogging, tennis and basketball. Sitting and lying down ?? Raise your legs when sitting. ?? Sit in chairs with arms. The arms make it easier for you to stand up or sit down. ?? Do not sit for more than 30 to 45 minutes at a time. ?? Nap if you are tired, but don?t stay in bed all day. ?? Ask your surgeon if it is OK to sleep on the side that has the new hip. Use pillows between yourlegs if sleeping on your side. Be sure to change the position of your leg during the night. Bathroom safety ?? Use nonslip bath mats, grab bars and a shower chair or tub bench in your bathroom. Riding and driving ?? Sit on a firm cushion when you ride in a car. Avoid sitting too low. ?? Don?t drive while you are taking narcotic pain medication. ?? Don?t drive until your doctor says it is OK. Most people can start driving about 2 to 4 weeks after surgery. Managing pain ?? You should expect to have some pain as you heal. This pain may last weeks or months. ?? Take pain medicine as directed. Do not skip or add doses. ?? Take them at least 20 minutes before doing activities. Take them 30 to 60 minutes before exercise or physical therapy. ?? Do not take other pain medicines unless your doctor approves. This includes opsz-dun-wjxpend medicines like aspirin, ibuprofen and Tylenol. ?? As you heal, you will need less pain medicine. Try taking 1 pill instead of 2. Or take them 2 times a day instead of 3 times a day. ?? Raise your leg. Rest your leg on pillows when you are in bed or in a chair. ?? Get up and move. This may help relieve discomfort at night. ?? You can also listen to music, relax, distract your mind or reposition your leg. Preventing infection ?? Avoid infection by washing your hands often. ?? Call your surgeon right away if you think you have an infection in your operated hip. Signs include a fever, redness, increased pain, or an incision that leaks white, green or yellow fluid. ?? Avoid soaking your incision in water (no hot tubs, bathtubs, swimming pools) until your doctor says it?s ok. ?? Wait 3 weeks after your surgery to shave your legs. ?? Wait 3 weeks after your surgery to get a flu or pneumonia vaccine. ?? Wait 2 months after your surgery for any routine dental appointments. When scheduling an appointment, be sure to tell your dentist that you?ve had a hip replacement. Your dentist may prescribe antibiotics for dental procedures. ?? Call your family doctor right away if you think you might have an infection elsewhere. Preventing blood clots ?? Take blood-thinning medicine as directed to prevent blood clots. ?? The nursing staff will teach you how to give the enoxaparin injection, if needed.. ?? Do not miss doses of blood-thinning medicine. ?? Use caution when taking long car trips or traveling by airplane for the first 6 weeks after surgery. If you must take a long car trip, stop every hour and walk for 10-15 minutes. Your doctor may recommend a blood thinner if you are flying within 6 weeks of surgery. Diet ?? It is normal to have a decreased appetite after surgery. Drink a nutritional supplement such as Boost or [place] Instant Breakfast until your appetite returns to normal. ?? Maintain a healthy weight. Added body weight puts stress on the hip. Get help to lose any extra pounds. Preventing constipation ?? Narcotic pain medicines can cause constipation. ?? Take stool softener as prescribed. ?? Drink plenty of fluids, especially water. ?? Increase fiber in your diet. Fruits, vegetables, beans, nuts and whole grains have fiber in them. ?? Call your doctor if your bowels do not move in the next few days after surgery. Sleep ?? Some patients have a hard time sleeping after surgery. If you have problems sleeping, take [id number] diphenhydramine (Benadryl) or melatonin. ?? If you still have problems sleeping, call the clinic. You may need a prescription for a sleep aid. Follow-up care ?? Your orthopaedic surgeon will schedule follow-up exams to make sure that your hip is healing correctly. Use this time to ask any questions you have about your recovery or activities. ?? If you need a prescription refill before your next appointment, call [phone]. Call 3 business days before you run out of medicine. ?? To check joint stability over time, you may have X-rays every five years. When should I call the doctor? Call [phone] right away if you have any of the following ?? Chest pain ?? Shortness of breath or trouble breathing Call Your doctor if you have any of the following ?? An increase in hip pain ?? Pain or swelling in a calf or leg ?? Unusual redness, heat, or drainage at the incision site ?? Fever of 101.5??F or higher or shaking chills. ?? Increased swelling in your leg. ?? Loss of control over leg motion * Care Plan - Helga Fuentes - 12/27/2024 11:04 PM EDT Problem: Adult Inpatient Plan of Care Goal: Plan of Care Review Flowsheets (Taken 12/27/20242300) Progress: improving Plan of Care Reviewed With: patient Goal: Patient-Specific Goal (Individualized) Flowsheets (Taken 12/27/20241999) Patient/Family-Specific Goals (Include Timeframe): pt. will remain free of harm during shift. Individualized Care Needs: safety Anxieties, Fears or Concerns: none stated Goal: Absence of Hospital-Acquired Illness or Injury Intervention: Identify and Manage Fall Risk Flowsheets (Taken 12/27/20242300) Safety Promotion/Fall Prevention: safety round/check completed fall prevention program maintained mobility aid in reach lighting adjusted clutter-free environment maintained assistive device/personal items within reach room organization consistent nonskid shoes/slippers when out of bed activity supervised Intervention: Prevent Skin Injury Flowsheets (Taken 12/27/20242300) Skin Protection: protective footwear used Intervention: Prevent and Manage VTE (Venous Thromboembolism) Risk Flowsheets (Taken 12/27/20242300) VTE Prevention/Management: lower extremity SCDs (sequential compression devices) on Intervention: Prevent Infection Flowsheets (Taken 12/27/20242300) Infection Prevention: hand hygiene promoted environmental surveillance performed Goal: Optimal Comfort and Wellbeing Intervention: Monitor Pain and Promote Comfort Flowsheets (Taken 12/27/20242300) Pain Management Interventions: quiet environment facilitated care clustered rest Intervention: Provide Person-Centered Care Flowsheets (Taken 12/27/20242300) Trust Relationship/Rapport: care explained questions answered questions encouraged thoughts/feelings acknowledged Problem: Infection Goal: Absence of Infection Signs and Symptoms Intervention: Prevent or Manage Infection Flowsheets (Taken 12/27/20242302) Infection Management: aseptic technique maintained Fever Reduction/Comfort Measures: lightweight clothing Isolation Precautions: precautions maintained Problem: Pain Acute Goal: Optimal Pain Control and Function Intervention: Optimize Psychosocial Wellbeing Flowsheets (Taken 12/27/20242302) Supportive Measures: active listening utilized Diversional Activities: television Intervention: Develop Pain Management Plan Flowsheets (Taken 12/27/20242300) Pain Management Interventions: quiet environment facilitated care clustered rest Intervention: Prevent or Manage Pain Flowsheets (Taken 12/27/20242302) Sensory Stimulation Regulation: care clustered Bowel Elimination Promotion: ambulation promoted Medication Review/Management: medications reviewed Problem: Fall Injury Risk Goal: Absence of Fall and Fall-Related Injury Intervention: Identify and Manage Contributors Flowsheets (Taken 12/27/2024 2303) Medication Review/Management: medications reviewed Intervention: Promote Injury-Free Environment Flowsheets (Taken 12/27/2024 2301) Safety Promotion/Fall Prevention: safety round/check completed fall prevention program maintained mobility aid in reach lighting adjusted clutter-free environment maintained assistive device/personal items within reach room organization consistent nonskid shoes/slippers when out of bed activity supervised * Care Plan - Paola Lancaster RN - 12/27/2024 8:24 PM EDT Problem: Adult Inpatient Plan of Care Goal: Plan of Care Review Outcome: Ongoing, Progressing Flowsheets (Taken 12/27/20242012) Progress: improving Plan of Care Reviewed With: patient Goal: Patient-Specific Goal (Individualized) Outcome: Ongoing, Progressing Flowsheets (Taken 12/27/2024 1700) Patient/Family-Specific Goals (Include Timeframe): Pt will have adequate pain control throughout shift Individualized Care Needs: Pain control Anxieties, Fears or Concerns: None Problem: Infection Goal: Absence of Infection Signs and Symptoms Outcome: Ongoing, Progressing Intervention: Prevent or Manage Infection Flowsheets (Taken 12/27/20242013) Infection Management: aseptic technique maintained Problem: Pain Acute Goal: Optimal Pain Control and Function Outcome: Ongoing, Progressing Intervention: Optimize Psychosocial Wellbeing Flowsheets (Taken 12/27/20242013) Supportive Measures: problem-solving facilitated relaxation techniques promoted Diversional Activities: television Intervention: Develop Pain Management Plan Flowsheets (Taken 12/27/20242013) Pain Management Interventions: medication (see MAR) emotional support pain management plan reviewed with patient/caregiver Intervention: Prevent or Manage Pain Flowsheets (Taken 12/27/20242013) Sensory Stimulation Regulation: quiet environment promoted Bowel Elimination Promotion: adequate fluid intake promoted privacy promoted Sleep/Rest Enhancement: consistent schedule promoted Medication Review/Management: medications reviewed Problem: Fall Injury Risk Goal: Absence of Fall and Fall-Related Injury Outcome: Ongoing, Progressing Intervention: Identify and Manage Contributors Flowsheets (Taken 12/27/20242013) Medication Review/Management: medications reviewed Self-Care Promotion: independence encouraged adaptive equipment use encouraged Intervention: Promote Injury-Free Environment 12/27/20242017 by Paola Lancaster RN Flowsheets (Taken 12/27/20242017) Safety Promotion/Fall Prevention: nonskid shoes/slippers when out of bed 12/27/20242013 by Paola Lancaster RN Flowsheets (Taken 12/27/20242013) Safety Promotion/Fall Prevention: activity supervised clutter-free environment maintained assistive device/personal items within reach fall prevention program maintained safety round/check completed * Care Plan - Paola Lancasetr RN - 12/27/2024 8:23 PM EDT Problem: Adult Inpatient Plan of Care Goal: Plan of Care Review Outcome: Ongoing, Progressing Flowsheets (Taken 12/27/20242012) Progress: improving Plan of Care Reviewed With: patient Goal: Patient-Specific Goal (Individualized) Outcome: Ongoing, Progressing Flowsheets (Taken 12/27/2024 1700) Patient/Family-Specific Goals (Include Timeframe): Pt will have adequate pain control throughout shift Individualized Care Needs: Pain control Anxieties, Fears or Concerns: None Problem: Infection Goal: Absence of Infection Signs and Symptoms Outcome: Ongoing, Progressing Intervention: Prevent or Manage Infection Flowsheets (Taken 12/27/20242013) Infection Management: aseptic technique maintained Problem: Pain Acute Goal: Optimal Pain Control and Function Outcome: Ongoing, Progressing Intervention: Optimize Psychosocial Wellbeing Flowsheets (Taken 12/27/20242013) Supportive Measures: problem-solving facilitated relaxation techniques promoted Diversional Activities: television Intervention: Develop Pain Management Plan Flowsheets (Taken 12/27/20242013) Pain Management Interventions: medication (see MAR) emotional support pain management plan reviewed with patient/caregiver Intervention: Prevent or Manage Pain Flowsheets (Taken 12/27/20242013) Sensory Stimulation Regulation: quiet environment promoted Bowel Elimination Promotion: adequate fluid intake promoted privacy promoted Sleep/Rest Enhancement: consistent schedule promoted Medication Review/Management: medications reviewed Problem: Fall Injury Risk Goal: Absence of Fall and Fall-Related Injury Outcome: Ongoing, Progressing Intervention: Identify and Manage Contributors Flowsheets (Taken 12/27/20242013) Medication Review/Management: medications reviewed Self-Care Promotion: independence encouraged adaptive equipment use encouraged Intervention: Promote Injury-Free Environment 12/27/20242017 by Paola Lancaster RN Flowsheets (Taken 12/27/20242017) Safety Promotion/Fall Prevention: nonskid shoes/slippers when out of bed 12/27/20242013 by Paola Lancaster RN Flowsheets (Taken 12/27/20242013) Safety Promotion/Fall Prevention: activity supervised clutter-free environment maintained assistive device/personal items within reach fall prevention program maintained safety round/check completed * Care Plan - Paola Lancaster RN - 12/27/2024 8:22 PM EDT Problem: Adult Inpatient Plan of Care Goal: Plan of Care Review Outcome: Ongoing, Progressing Flowsheets (Taken 12/27/20242012) Progress: improving Plan of Care Reviewed With: patient Goal: Patient-Specific Goal (Individualized) Outcome: Ongoing, Progressing Flowsheets (Taken 12/27/2024 1700) Patient/Family-Specific Goals (Include Timeframe): Pt will have adequate pain control throughout shift Individualized Care Needs: Pain control Anxieties, Fears or Concerns: None Problem: Infection Goal: Absence of Infection Signs and Symptoms Outcome: Ongoing, Progressing Intervention: Prevent or Manage Infection Flowsheets (Taken 12/27/20242013) Infection Management: aseptic technique maintained Problem: Pain Acute Goal: Optimal Pain Control and Function Outcome: Ongoing, Progressing Intervention: Optimize Psychosocial Wellbeing Flowsheets (Taken 12/27/20242013) Supportive Measures: problem-solving facilitated relaxation techniques promoted Diversional Activities: television Intervention: Develop Pain Management Plan Flowsheets (Taken 12/27/20242013) Pain Management Interventions: medication (see MAR) emotional support pain management plan reviewed with patient/caregiver Intervention: Prevent or Manage Pain Flowsheets (Taken 12/27/20242013) Sensory Stimulation Regulation: quiet environment promoted Bowel Elimination Promotion: adequate fluid intake promoted privacy promoted Sleep/Rest Enhancement: consistent schedule promoted Medication Review/Management: medications reviewed Problem: Fall Injury Risk Goal: Absence of Fall and Fall-Related Injury Outcome: Ongoing, Progressing Intervention: Identify and Manage Contributors Flowsheets (Taken 12/27/20242013) Medication Review/Management: medications reviewed Self-Care Promotion: independence encouraged adaptive equipment use encouraged Intervention: Promote Injury-Free Environment 12/27/20242017 by Paola Lancaster RN Flowsheets (Taken 12/27/20242017) Safety Promotion/Fall Prevention: nonskid shoes/slippers when out of bed 12/27/20242013 by Paola Lancaster RN Flowsheets (Taken 12/27/20242013) Safety Promotion/Fall Prevention: activity supervised clutter-free environment maintained assistive device/personal items within reach fall prevention program maintained safety round/check completed * Care Plan - Paola Lancaster RN - 12/27/2024 8:14 PM EDT Problem: Adult Inpatient Plan of Care Goal: Plan of Care Review Outcome: Ongoing, Progressing Flowsheets (Taken 12/27/20242012) Progress: improving Plan of Care Reviewed With: patient Goal: Patient-Specific Goal (Individualized) Outcome: Ongoing, Progressing Flowsheets (Taken 12/27/2024 1700) Patient/Family-Specific Goals (Include Timeframe): Pt will have adequate pain control throughout shift Individualized Care Needs: Pain control Anxieties, Fears or Concerns: None Problem: Infection Goal: Absence of Infection Signs and Symptoms Outcome: Ongoing, Progressing Intervention: Prevent or Manage Infection Flowsheets (Taken 12/27/20242013) Infection Management: aseptic technique maintained Problem: Pain Acute Goal: Optimal Pain Control and Function Outcome: Ongoing, Progressing Intervention: Optimize Psychosocial Wellbeing Flowsheets (Taken 12/27/20242013) Supportive Measures: problem-solving facilitated relaxation techniques promoted Diversional Activities: television Intervention: Develop Pain Management Plan Flowsheets (Taken 12/27/20242013) Pain Management Interventions: medication (see MAR) emotional support pain management plan reviewed with patient/caregiver Intervention: Prevent or Manage Pain Flowsheets (Taken 12/27/20242013) Sensory Stimulation Regulation: quiet environment promoted Bowel Elimination Promotion: adequate fluid intake promoted privacy promoted Sleep/Rest Enhancement: consistent schedule promoted Medication Review/Management: medications reviewed Problem: Fall Injury Risk Goal: Absence of Fall and Fall-Related Injury Outcome: Ongoing, Progressing Intervention: Identify and Manage Contributors Flowsheets (Taken 12/27/20242013) Medication Review/Management: medications reviewed Self-Care Promotion: independence encouraged adaptive equipment use encouraged Intervention: Promote Injury-Free Environment 12/27/20242017 by Paola Lancaster RN Flowsheets (Taken 12/27/20242017) Safety Promotion/Fall Prevention: nonskid shoes/slippers when out of bed 12/27/20242013 by Paola Lancaster RN Flowsheets (Taken 12/27/20242013) Safety Promotion/Fall Prevention: activity supervised clutter-free environment maintained assistive device/personal items within reach fall prevention program maintained safety round/check completed Problem: Adult Inpatient Plan of Care Goal: Plan of Care Review Outcome: Ongoing, Progressing Flowsheets (Taken 12/27/20242012) Progress: improving Plan of Care Reviewed With: patient Goal: Patient-Specific Goal (Individualized) Outcome: Ongoing, Progressing Flowsheets (Taken 12/27/2024 1700) Patient/Family-Specific Goals (Include Timeframe): Pt will have adequate pain control throughout shift Individualized Care Needs: Pain control Anxieties, Fears or Concerns: None Problem: Infection Goal: Absence of Infection Signs and Symptoms Outcome: Ongoing, Progressing Intervention: Prevent or Manage Infection Flowsheets (Taken 12/27/20242013) Infection Management: aseptic technique maintained Problem: Pain Acute Goal: Optimal Pain Control and Function Outcome: Ongoing, Progressing Intervention: Optimize Psychosocial Wellbeing Flowsheets (Taken 12/27/20242013) Supportive Measures: problem-solving facilitated relaxation techniques promoted Diversional Activities: television Intervention: Develop Pain Management Plan Flowsheets (Taken 12/27/20242013) Pain Management Interventions: medication (see MAR) emotional support pain management plan reviewed with patient/caregiver Intervention: Prevent or Manage Pain Flowsheets (Taken 12/27/20242013) Sensory Stimulation Regulation: quiet environment promoted Bowel Elimination Promotion: adequate fluid intake promoted privacy promoted Sleep/Rest Enhancement: consistent schedule promoted Medication Review/Management: medications reviewed Problem: Fall Injury Risk Goal: Absence of Fall and Fall-Related Injury Outcome: Ongoing, Progressing Intervention: Identify and Manage Contributors Flowsheets (Taken 12/27/20242013) Medication Review/Management: medications reviewed Self-Care Promotion: independence encouraged adaptive equipment use encouraged Intervention: Promote Injury-Free Environment 12/27/20242017 by Paola Lancaster RN Flowsheets (Taken 12/27/20242017) Safety Promotion/Fall Prevention: nonskid shoes/slippers when out of bed 12/27/2024 2014 by Paola Lancaster RN Flowsheets (Taken 12/27/20242013) Safety Promotion/Fall Prevention: activity supervised clutter-free environment maintained assistive device/personal items within reach fall prevention program maintained safety round/check completed * Consults - Ling Croft APRN - 12/27/2024 5:36 PM EDTAssociated Order(s): Inpatient consult to Hospitalist Steffen Low Inpatient consult to Diana Low Consult performed by: Ling Croft APRN Consult ordered by: Ruel Gomes MD Reason for consult: Comanagement Reason For Consult Comanagement Requesting Service: Ortho recon History Of Present Illness Juliane Ceballos is a 59 y.o. female presenting for an elective right BRANDON for OA. She has a history ofobesity underwent gastric sleeve. She previously had pre-DM, HTN, and CORAZON, but after losing a significant amount of weight, these conditions resolved. Now, she is only being treated for her bilateralhip OA. She anticipates having her left hip replaced eventually. Post-op, she has had some nausea, and felt light-headed when she worked with PT/OT, so she elected to stay overnight. Her hip is sore, but pain is manageable. Medical/Surgical/Social/Family History I have reviewed and updated the patient history. Allergies Eletriptan and Nsaids Medications Current Medications[1] Review of Systems Review of Systems Respiratory: Negative for cough and shortness of breath. Cardiovascular: Negative for chest pain. Gastrointestinal: Positive for nausea. Negative for vomiting. Musculoskeletal: Positive for arthralgias. Neurological: Positive for weakness and light-headedness. Negative for dizziness and headaches. Physical Exam Physical Exam Constitutional: General: She is not in acute distress. Appearance: Normal appearance. HENT: Head: Normocephalic and atraumatic. Cardiovascular: Rate and Rhythm: Normal rate and regular rhythm. Pulses: Normal pulses. Heart sounds: Normal heart sounds. No murmur heard. No friction rub. No gallop. Pulmonary: Effort: Pulmonary effort is normal. Breath sounds: Normal breath sounds. Abdominal: General: Bowel sounds are normal. There is no distension. Palpations: Abdomen is soft. Tenderness: There is no abdominal tenderness. Genitourinary: Comments: No berman Musculoskeletal: General: No swelling or tenderness. Cervical back: Neck supple. Right lower leg: No edema. Left lower leg: No edema. Comments: Right anterior hip dressing CDI Skin: General: Skin is warm and dry. Neurological: General: No focal deficit present. Mental Status: She is alert and oriented to person, place, and time. Mental status is at baseline. Psychiatric: Mood and Affect: Mood normal. Behavior: Behavior normal. Thought Content: Thought content normal. Last Recorded Vitals Blood pressure 134/75, pulse 77, temperature 36.3 ??C (97.3 ??F), resp. rate 16, height 1.626 m (5'4 ), weight 76.2 kg (168 lb), SpO2 98%. Results Review {Vanishing Link Review Results :[id number] I have reviewed the latest lab and imaging results. Assessment & Plan Arthritis of right hip Mrs. Ceballos is a 59-year-old with a PMH of OA, obesity s/p gastric sleeve, HTN/pre-DM and CORAZON (now all resolved) who presents for elective right BRANDON. Overweight - Body mass index is 28.84 kg/m??. - S/p gastric sleeve - HTN, pre-DM and CORAZON have all resolved since her weight loss surgery OA s/p right BRANDON - Pre-op labs of CBC, BMP, A1c all reviewed and are unremarkable - Remainder of care per primary team, including VTE prophylaxis and pain management Thank you for the consult. HM consults will continue to follow. Please secure chat, call or page with questions. Ling Croft, HARDWARE ENGINEERING MANAGER Pager: [phone] [1] Current Facility-Administered Medications Medication Dose Route Frequency Provider Last Rate Last Admin acetaminophen (Tylenol) tablet 1,000 mg 1,000 mg Oral q8h [facility] Douglas Ang MD [START ON 12/28/2024] apixaban (Eliquis) tablet 2.5 mg 2.5 mg Oral Once Douglas Ang MD Followed by [START ON 12/28/2024] apixaban (Eliquis) tablet 2.5 mg 2.5 mg Oral BID Douglas Ang MD bethanechol (Urecholine) tablet 20 mg 20 mg Oral Once PRN Douglas Ang MD bisacodyl (Dulcolax) suppository 10 mg 10 mg Rectal BID PRN Douglas Ang MD calcium-vitamin D 500-200 MG-UNIT per tablet 1 tablet 1 tablet Oral BID with meals Douglas Ang MD ceFAZolin (Ancef) injection 2 g 2 g Intravenous q8h Douglas Ang MD diphenhydrAMINE (Benadryl) tablet 12.5 mg 12.5 mg Oral q4h PRN Douglas Ang MD gabapentin (Neurontin) capsule 100 mg 100 mg Oral q8h Douglas Ang MD HYDROmorphone (Dilaudid) injection 0.5 mg 0.5 mg Intravenous q6h PRN Douglas Ang MD lactated Ringer's infusion 50 mL/hr Intravenous Continuous Douglas Ang MD magnesium hydroxide (Milk of Magnesia) 400 MG/5ML suspension 30 mL 30 mL Oral BID PRN Douglas Ang MD ondansetron (Zofran) injection 4 mg 4 mg Intravenous q6h PRN Douglas Ang MD oxyCODONE (Roxicodone) immediate release tablet 5 mg 5 mg Oral q4h PRN Douglas Ang MD pantoprazole (Protonix) EC tablet 40 mg 40 mg Oral Daily before breakfast Douglas Ang MD [START ON 12/28/2024] polyethylene glycol (Miralax) packet 17 g 17 g Oral Daily with breakfast Douglas Ang MD scopolamine (Transderm-Scop) patch 1 patch 1 patch Transdermal Once Ruel Gomes MD 1 patch at 12/27/24 0841 senna-docusate (Jayne-Colace) 8.6-50 MG per tablet 2 tablet 2 tablet Oral Nightly Douglas Ang MD traMADol (Ultram) tablet 100 mg 100 mg Oral q8h PHYLICIA Douglas Ang MD traMADol (Ultram) tablet 50 mg 50 mg Oral q12h PRN Douglas Ang MD Cosigned by Chapo Conte MD at 12/27/2024 10:18 PM EDT Associated attestation - Chapo Conte MD - 12/27/2024 10:18 PM EDT The patient was seen only by Advanced Practice Provider (CINDY). * Progress Notes - Paola Gonzalez - 12/27/2024 3:49 PM EDT Physical Therapy Evaluation/Discharge Patient Name: Juliane Ceballos Today's Date: 12/27/2024 PT Discharge Recommendations: Outpatient PT, Home with assistance ( can provide assistance to her at home.) Equipment Recommended: Patient owns appropriate equipment History Juliane Ceballos is 59 y.o. female admitted 12/27/2024 for work-up of Unilateral primary osteoarthritis,right hip. Problem List Active Hospital Problems Diagnosis Date Noted Arthritis of right hip 12/27/2024 Procedures 12/27/2024 Procedure(s): ARTHROPLASTY, HIP, TOTAL, ANTERIOR APPROACH Past Medical History Patient has a past medical history of Chronic back pain, Delayed emergence from general anesthesia,and Murmur. Past Surgical History Patient has a past surgical history that includes Lumbar fusion; Rotator cuff repair (Left); Carpaltunnel release (Bilateral); Hysterectomy; Tubal ligation; Gastric restriction surgery; Cervical fusion; Foot surgery (Left); ORIF ankle fracture; Other surgical history (Bilateral); and Vertebroplasty. Precautions Left Lower Extremity Weight Bearing Status: Weight Bearing as Tolerated Right Lower Extremity Weight Bearing Status: Weight Bearing as Tolerated Left Upper Extremity Weight Bearing Status : Weight bearing as tolerated Right Upper Extremity Weight Bearing Status : Weight bearing as tolerated Subjective I am going to go home and sleep Participants in Care Family/Caregiver Present: Yes Family/Caregiver: Spouse L Tacker: Not Applicable Presentation Oxygen Therapy: None (Room air) Lines and Tubes: Intravenous access Pre-Session: Supine, Head of bed elevated Pre-Session Comments: Nurse and patient agreeable to session Post-Session: Head of bed elevated, Supine, Lines intact, RN notified, Call light in reach Post-Session Comments: All needs met Peripheral IV 12/27/24 Anterior;Left Forearm (Active) ] Home Living/Set-up Lives With: Spouse Home Type: House Home Adaptive Equipment: None, Bedside commode Home Layout: One level, Stairs to enter with rails Number of Stairs: 1 Bathroom: Tub/Shower: Tub/Shower combo, Tub transfer bench Bathroom: Toilet: Tall Bathroom: Accessibility: Accessible Prior Level of Function Receives Help From: No assist required prior to admission Level of Mobility: Ambulatory- community Mobility [place]: Independent gait without device History of Falls: No ADL Performance: Independent Patient/Family Goals to get better Objective Pain Patient c/o mild pain in right low back and hip, but did not rate. Delirium Screening [place] Agitation Sedation Scale (RASS): Drowsy Confusion Assessment Method-ICU (CAM-ICU/PCAM-ICU) Feature 3: Altered Level of Consciousness: Positive Cognition Overall Cognitive Status: Within Functional Limits Arousal/Alertness: Appropriate responses to stimuli Mood/Behavior: Alert Orientation Level: Oriented X4 Single Step Commands: Consistently Multi-Step Commands: Consistently Method of Communication: Verbal Right Upper Extremity Examination RUE Assessment: Within Functional Limits Manual Muscle Testing - RUE: Within functional limits Left Upper Extremity Examination LUE ROM Assessment LUE Assessment: Within Functional Limits Manual Muscle Testing - LUE Manual Muscle Testing - LUE: Within functional limits Right Lower Extremity Examination RLE ROM Assessment RLE Assessment: Within Functional Limits Manual Muscle Testing - RLE Manual Muscle Testing - RLE: Within functional limits except (Cannot assess due to procedure but grossly 4/5) Left Lower Extremity Examination LLE Assessment: Within Functional Limits Manual Muscle Testing: Within functional limits Therapeutic Activity Pt performed transitional skills and standing activity to promote functional mobility and progress activity tolerance. Patient participating in therapeutic activities as described in detail in sections below. Bed Mobility Bed Mobility Exam: Scooting/Bridging Level of Wharton: Contact guard Physical/Nonphysical Assist: Supervision, Verbal Cues, Minimal cues Bed Mobility Exam: Supine to Sit Level of [place]: Contact guard Physical/Nonphysical Assist: Supervision, Verbal Cues, Minimal cues Transfers Transfer Exam: Sit to stand Level of [place]: Contact guard Physical/Nonphysical Assist: Supervision, Verbal Cues, Minimal cues Assistive Device: Walker, rolling Transfer Exam: Stand to Sit Level of Wh[place]: Contact guard Physical/Nonphysical Assist: Supervision, Verbal Cues, Minimal cues Assistive Device: Walker, rolling Transfer Exam: Bed to Chair/Chair to Bed Level of Wharton: Contact guard Physical/Nonphysical Assist: Supervision, Verbal Cues, Minimal cues Assistive Device: Walker, rolling Toilet Transfer Level of Wharton: Contact guard Physical/Nonphysical Assist: Supervision, Minimal cues, Verbal Cues Type of Transfer: Ambulation, To toilet Assistive Device: Walker, rolling Balance Postural Appearance Posture: Within Functional Limits Static Sitting Balance Static Sitting-Balance Support: No upper extremity support Static Sitting-Level of Assistance: Independent Dynamic Sitting Balance Dynamic Sitting-Balance Support: No upper extremity support, Feet supported Dynamic Sitting-Balance: Anterior/Posterior weight shifts, Lateral weight shifts, Reaching across midline Level of Assistance: Supervision Dynamic Sitting - Interventions: While getting dressed; will be able to supervise at home. Static Standing Balance Static Standing-Balance Support: Right upper extremity support, Left upper extremity support Static Standing-Level of Assistance: Supervision Dynamic Standing Balance Dynamic Standing-Balance Support: Right upper extremity support, Left upper extremity support Dynamic Standing-Balance: Lateral weight shifts, Anterior/Posterior weight shifts, Reaching across midline Dynamic Standing Level of Assistance: Supervision Gait Training (12 minutes) Device: Rolling walker Apparatus: None Assistance: Standby assist (advised to be SBA for the first few days at home; he is agreeable.) Distance: 25 feet on level surface Gait Analysis: antalgic gait on R lower extremity; difficulty with sequencing and moving walker farenough forward. Patient very steady with gait and walker. Gait Training Interventions: cues for sequencing and movement and placement of walker. Therapeutic Exercise (5 minutes) Access Code: [email or web address] URL: [email or web address] Date: 12/27/2024 Prepared by: Paola Gonzalez Program Notes Anterior Hip Exercises - Phase 1 (Days 1-7) Ankle Pumps - 3 x daily - 7 x weekly - 10 reps - Phase 1 (Days 1-7) Knee Push Downs - 3 x daily - 7 x weekly - 10 reps - 3 hold - Phase 1(Days 1-7) Buttocks Squeeze - 3 x daily - 7 x weekly - 10 reps - 3 hold - Phase 1 (Days 1- 7) Heel Slide (Supine) - 3 x daily - 7 x weekly - 10 reps - 3 hold - Phase 1 (Days 1-7) Short Arc Quad - 3 x daily - 7 x weekly - 10 reps - 3 hold - Phase 1 (Days 1-7) Hip abduction/Adduction - 3 x daily - 7 xweekly - 10 reps - Phase 1 (Days 1-7) Straight Leg Raises - 3 x daily - 7 x weekly - 10 reps - Phase 1 (Days 1-7) Long Arc Quad - 3 x daily - 7 x weekly - 10 reps - 3 hold - Phase 1 (Days 1-7) SeatedKnee Flexion - 3 x daily - 7 x weekly - 10 reps - 3 hold - Phase 2 ( Days 8-14) Seated Ball Squeezes - 3 x daily - 20 reps - 3 hold - Phase 2 ( Days 8-14) Seated Hip Abduction with Towel - 3 x daily - 20 reps - Phase 2 ( Days 8-14) Standing Marching - 3 x daily - 10 reps - 3 hold - Phase 2 ( Days 8- 14) Hip Abduction - 3 x daily - 10 reps - 3 hold - Phase 2 ( Days 8-14) Standing Hip Flexion - 3 xdaily - 10 reps - 3 hold - Phase 2 ( Days 8-14) Hamstring Curl - 2 x daily - 20 reps - Phase 2 ( Day 8-14) Standing Toe Raises - 3 x daily - 20 reps - 3 hold - Phase 2 ( Days 8-14) Standing Heel Raise - 3 x daily - 20 reps - Wall slide Phase 3 Days 15-28 - 3 x daily - 20 reps - Phase 3 ( Days 15-28) Single Leg Step-Up - 3 x daily - 20 reps - Phase 3( Days 15-28) Step Down - 3 x daily - 10 reps - Phase 3 ( Days 15-28) Bilateral Heel Raises - 3 x daily - 20 reps - Phase 3 ( Days 15-28) Balance : Unilateral ( Single Leg Stance ) - 3 x daily - 4 reps - 30 hold - Phase 3 ( Days 15-28) Side Step - 3 x daily - 4 reps Patient Education - Anterior Hip Precaution Instructions . Patient and instructed in QR code and website to further show them how to do exercises correctively. Standardized Assessments Standardized Assessments Standardized Assessments: [facility] 6-Clicks Mobility Assessment [facility] 6-Clicks Mobility Assessment Difficulty patient has turning over in bed (including adjusting bedclothes, sheets, and blankets)?:None Difficulty patient has sitting down on and standing up from a chair with arms (wheelchair, bedside commode, etc.)?: A little (slowly) Difficulty patient has moving from lying on back to sitting on the side of the bed?: A little (slowly) How much help does the patient need moving to and from a bed to a chair (including a wheelchair)?: A little How much help does the patient need to walk in hospital room?: A little How much help does the patient need climbing 3-5 steps with a railing?: A lot [facility] 6-Clicks Mobility Assessment Total : 18 Assessment Due to functional ability, patient would be most appropriate for home with outpatient therapy services to continue with ROM, strengthening and gait training. Barriers to Discharge: (no barriers to discharge) Eval Complexity History Profile: 1 - 2 personal factors and/or comorbidities Clinical Presentation: Evolving clinical presentation with changing characteristics Clinical Decision Making: Moderate complexity PT Recommendations Discharge Destination: Outpatient PT, Home with assistance ( can provide assistance to her at home.) Discharge Equipment: Patient owns appropriate equipment Plan Patient no longer demonstrates need for inpatient physical therapy services. Patient to be discharged from physical therapy. Written by Paola Gonzalez on 12/27/24 at 3:51 PM. * Progress Notes - Gil Nicole - 12/27/2024 3:29 PM EDT Occupational Therapy Evaluation/Discharge Patient Name: Juliane Ceballos Today's Date: 12/27/2024 OT Discharge Recommendations: Home with assistance Equipment Recommended: Rolling walker (Delivered to pt's room) History Juliane Ceballos is 59 y.o. female admitted 12/27/2024 for work-up of Unilateral primary osteoarthritis,right hip. Problem List Active Hospital Problems Diagnosis Date Noted Arthritis of right hip 12/27/2024 Procedures 12/27/2024 Procedure(s): ARTHROPLASTY, HIP, TOTAL, ANTERIOR APPROACH Past Medical History Patient has a past medical history of Chronic back pain, Delayed emergence from general anesthesia,and Murmur. Past Surgical History Patient has a past surgical history that includes Lumbar fusion; Rotator cuff repair (Left); Carpaltunnel release (Bilateral); Hysterectomy; Tubal ligation; Gastric restriction surgery; Cervical fusion; Foot surgery (Left); ORIF ankle fracture; Other surgical history (Bilateral); and Vertebroplasty. Precautions Left Lower Extremity Weight Bearing Status: Weight Bearing as Tolerated Right Lower Extremity Weight Bearing Status: Weight Bearing as Tolerated Left Upper Extremity Weight Bearing Status : Weight bearing as tolerated Right Upper Extremity Weight Bearing Status : Weight bearing as tolerated Subjective Pt agreeable to OT eval. I'm just really sleepy. Participants in Care Family/Caregiver Present: Yes Family/Caregiver: Spouse L Tacker: Not Applicable Presentation Oxygen Therapy: None (Room air) Lines and Tubes: Intravenous access Pre-Session: Supine, Head of bed elevated Pre-Session Comments: Nurse and patient agreeable to session Post-Session: Head of bed elevated, Supine, Lines intact, RN notified, Call light in reach Post-Session Comments: All needs met Home Living/Set-up Lives With: Spouse Home Type: House Home Adaptive Equipment: None, Bedside commode Home Layout: One level, Stairs to enter with rails Number of Stairs: 1 Bathroom: Tub/Shower: Tub/Shower combo, Tub transfer bench Bathroom: Toilet: Tall Bathroom: Accessibility: Accessible Prior Level of Function Receives Help From: No assist required prior to admission Level of Mobility: Ambulatory- community Mobility [place]: Independent gait without device History of Falls: No ADL Performance: Independent Patient/Family Goals Statement Return home with assist Objective Pain No complaints of pain Delirium Screening Emery Agitation Sedation Scale (RASS): Drowsy Confusion Assessment Method-ICU (CAM-ICU/PCAM-ICU) Feature 3: Altered Level of Consciousness: Positive Cognition Overall Cognitive Status: Within Functional Limits Arousal/Alertness: Appropriate responses to stimuli Mood/Behavior: Alert Orientation Level: Oriented X4 Single Step Commands: Consistently Multi-Step Commands: Consistently Method of Communication: Verbal Right Upper Extremity Examination RUE ROM Assessment RUE Assessment: Within Functional Limits Manual Muscle Testing - RUE: Within functional limits Left Upper Extremity Examination LUE ROM Assessment LUE Assessment: Within Functional Limits Manual Muscle Testing - LUE: Within functional limits Right Lower Extremity Examination RLE ROM Assessment RLE Assessment: Within Functional Limits Manual Muscle Testing - RLE: Within functional limits except (Cannot assess due to procedure but grossly 4/5) Left Lower Extremity Examination LLE ROM Assessment LLE Assessment: Within Functional Limits Manual Muscle Testing: Within functional limits Bed Mobility Bed Mobility Exam: Scooting/Bridging Level of [place]: Contact guard Physical/Nonphysical Assist: Supervision, Verbal Cues, Minimal cues Assistive Device: Bed rails Bed Mobility Exam: Supine to Sit Level of [place]: Contact guard Physical/Nonphysical Assist: Supervision, Verbal Cues, Minimal cues Assistive Device: Bed rails Transfers Transfer Exam: Sit to stand Level of [place]: Contact guard Physical/Nonphysical Assist: Supervision, Verbal Cues, Minimal cues Assistive Device: Walker, rolling Transfer Exam: Stand to Sit Level of [place]: Contact guard Physical/Nonphysical Assist: Supervision, Verbal Cues, Minimal cues Assistive Device: Walker, rolling Transfer Exam: Bed to Chair/Chair to Bed Level of [place]: Contact guard Physical/Nonphysical Assist: Supervision, Verbal Cues, Minimal cues Type of Transfer: (Pt ambulated prior to returning to sit in bedside chair) Assistive Device: Walker, rolling Toilet Transfer Level of Wharton: Contact guard Physical/Nonphysical Assist: Supervision, Verbal Cues, Minimal cues Type of Transfer: Ambulation, To toilet Assistive Device: Walker, rolling Self-Care Interventions Self Care/Home Management (ADLs) Time Entry: 15 Grooming Grooming Level of Assistance: Independent Grooming Interventions: To was able to wash her hands at sink side while sitting on the toilet UE Dressing UE Dressing Level of Assistance: Independent UE Dressing Where Assessed: Edge of bed Lower Extremity Dressing Pants Level of Assistance: SBA, Setup LE Dressing Where Assessed: Edge of bed LE Dressing Interventions: Pt was SBA for LB dressing sitting at EOB with cues for technique Toileting Toileting Level of Assistance: SBA, Setup Where Assessed: Toilet Standardized Assessments Sundar Index Feeding: Independent Bathing: Independent (or in Shower) Grooming: Independent face/hair/teeth/shaving (implements provided) Dressing: Independent (including buttons, zips, laces etc.) Bowels: Continent Bladder: Continent Toilet Use: Independent (on and off, dressing, wiping) Transfers (Bed to Chair and Back): Minor help (verbal or physical) Mobility (on Level Surfaces): Walks with help or one person (verbal or physical) > 50 yards Stairs: Needs help (verbal, physical, carrying aid) Total Score: 85 Assessment Pt demonstrated the ability to complete LB dressing sitting at EOB with cues for technique. Pt was IND for UB dressing, grooming and eating. Pt was CGA for all functional transfers at RW level. OT Findings: Barriers to Discharge: Comorbidities Eval Complexity Occupational Profile: Expanded review of medical/therapy records and additional review of physical,cognitive, or psychosocial history Clinical Decision Making: Low Overall Eval complexity: Low OT Recommendations Discharge Destination: Home with assistance Discharge Equipment: Rolling walker (Delivered to pt's room) Plan Patient no longer demonstrates need for inpatient occupational therapy services. Patient to be discharged from occupational therapy. Written by Gil Nicole on 12/27/24 at 3:44 PM. * Perioperative Nursing Note - Claudia Moreira RN - 12/27/2024 1:57 PM EDT Walker sent with patient to phase 2 on 2nd floor. * Perioperative Nursing Note - Claudia Moreira RN - 12/27/2024 12:47 PM EDT Walker delivered and with patient. * Perioperative Nursing Note - Claudia Moreira RN - 12/27/2024 12:14 PM EDT Xrays being done; patient tolerating well. * Mai Cheema - Claudia Moreira RN - 12/27/2024 11:50 AM EDT Images from the original note were not included. 221 After Anterior Total Hip Replacement After your hip replacement, you will need to follow these instructions to avoid complications. Follow these instructions from the time you go home until your doctor says you can stop. Incision care ?? If your incision has sutures or omid, do not shower until after you return to the clinic. ?? If your incision is closed with liquid skin adhesive, you may shower 24 hours after all drainagestops. ?? If your incision is closed with steri-strips, you may shower 5 days after your surgery. ?? If your incision is covered with a waterproof dressing, you may shower when you feel comfortable. Remove this dressing after 7 days. ?? Sit on a shower stool or chair when you shower to keep from falling. Carefully wash around your incision with soap and water. Rinse the incision well. Then gently pat it dry. ?? Do not rub the incision or apply creams or lotions. ?? If your incision is not draining, you do not need a dressing over it. You may cover your incision with a light, dry bandage if you want. ?? Check your incision daily for redness, swelling, tenderness or drainage. Hip precautions ?? You will need to avoid certain positions and movements 6 to 8 weeks after surgery. This will help keep your new hip from dislocating or popping out of place. Activity and exercise ?? Follow your doctor?s orders for how much weight to put on the operated leg. ?? Walk often. Do the exercise physical therapy taught you three times a day. ?? Slowly increase your activity each day. ?? Walk up and down stairs with support. Use the railing if possible. Try one step at a time - goodhip up, bad hip down. ?? Use a cane, crutches, a walker or handrails until your balance, flexibility and strength improve. Remember to ask for help from others when you need it. ?? Do not engage in any jarring sports or activities until your doctor says it is OK. Examples are jogging, tennis and basketball. Sitting and lying down ?? Raise your legs when sitting. ?? Sit in chairs with arms. The arms make it easier for you to stand up or sit down. ?? Do not sit for more than 30 to 45 minutes at a time. ?? Nap if you are tired, but don?t stay in bed all day. ?? Ask your surgeon if it is OK to sleep on your stomach or sides. Use pillows between your legs when sleeping on your side. Bathroom safety ?? Use safety devices in your bathroom. These include nonslip bath mats, grab bars and a shower chair. Riding and driving ?? Sit on a firm cushion when you ride in a car. Avoid sitting too low. ?? Don?t drive while you are taking narcotic pain medicine. ?? Don?t drive until your doctor says it is OK. Most people can start driving: o For surgery on right leg, about 2 weeks after surgery o For surgery on left leg, when you feel comfortable Managing pain ?? You should expect to have some pain as you heal. This pain may last weeks or months. ?? Take pain medicine as directed. Do not skip or add doses. ?? Take them at least 20 minutes before doing activities. Take them 30 to 60 minutes before exercise or physical therapy. ?? Do not take other pain medicines unless your doctor approves. This includes skif-[id number]-[id number] medicines like aspirin, ibuprofen and Tylenol. ?? As you heal, you will need less pain medicine. Try taking one pill instead of two. Or take them two times a day instead of three times a day. ?? Get up and move. This may help relieve discomfort at night. ?? You can also try listening to music, relaxing, distracting your mind, or repositioning your leg. Preventing infection ?? Avoid infection by washing your hands often. ?? Call your surgeon right away if you think you have an infection in your operated hip. Signs include a fever, redness, increased pain, or an incision that leaks white, green or yellow fluid. ?? Avoid soaking your incision in water (no hot tubs, bathtubs, swimming pools) until your doctor says it?s ok. ?? Wait 3 weeks after your surgery to shave your legs. ?? Wait 3 weeks after your surgery to get a flu or pneumonia vaccine. ?? Wait 2 months after your surgery for any routine dental appointments. After hip replacement, youmay need to take antibiotics for dental procedures. When scheduling an appointment, be sure to tellyour dentist that you?ve had a hip replacement. ?? Call your family doctor right away if you think you might have an infection elsewhere. Preventing blood clots ?? Take blood-thinning medicine as directed to prevent blood clots. ?? Do not miss doses of blood-thinning medicine. ?? If you received support stocking in the hospital, wear them for 2 weeks after surgery. ?? Use caution when taking long car trips or traveling by airplane for the first 6 weeks after surgery. If you must take a long car trip, stop every hour and walk for 10-15 minutes. Your doctor may recommend a blood thinner if you are flying within 6 weeks of surgery. Diet ?? It is normal to have a decreased appetite after surgery. Drink a nutritional supplement such as Boost or [place] Instant Breakfast until your appetite returns to normal. ?? Maintain a healthy weight. Added body weight puts stress on the hip. Get help to lose any extra pounds. Preventing constipation ?? Narcotic pain medicines can cause constipation. ?? Take stool softener as prescribed. ?? Drink plenty of fluids, especially water. ?? Increase fiber in your diet. Fruits, vegetables, beans, nuts and whole grains have fiber in them. ?? Call your doctor if your bowels do not move in the next few days after surgery. Follow-up care ?? Your orthopaedic surgeon will schedule follow-up exams to make sure that your hip is healing correctly. Use this time to ask any questions you have about your recovery or activities. ?? If you need a prescription refill before your next appointment, call [phone]. ?? To check joint stability over time, you may have X-rays every five years. When should I call the doctor? Call [phone] right away if you have any of the following ?? Chest pain ?? Shortness of breath or trouble breathing Call your doctor if you have any of the following ?? An increase in hip pain ?? Pain or swelling in a calf or leg ?? Unusual redness, heat or drainage at the incision site ?? Fever of 101.5??F or higher or shaking chills ?? Increased swelling in your leg ?? Loss of control over leg motion * Mai MaciasSÁNCHEZ - Claudia Moreira RN - 12/27/2024 11:50 AM EDT Images from the original note were not included. 113 Post-Anesthesia and Postoperative Instructions () In order to have a fast and comfortable recovery at home, please follow these instructions. ?? A responsible adult must be present for you to be discharged. ?? Do not drive, drink alcohol or make important decisions for 24 hours after surgery. ?? You may feel like resting more than normal after surgery. Start slowly and be more active each day. ?? Start slowly with liquids like 7-up, tea, apple juice or broth. Eat more as your stomach allows.If you feel sick to your stomach, go back to drinking liquids. ?? You may feel some discomfort after surgery. Take the medicine as directed by your caregiver. If your medicine makes you drowsy, do not drink alcohol, drive or operate heavy equipment for at least 24 hours after use. ?? If you are taking antibiotics, take them until they are all gone even if you feel well. ?? Cover your wound or bandage when showering, unless your doctor tells you differently. ?? A small amount of drainage on your bandage is normal. Do not remove your bandage unless your doctor tells you to. Please keep track of information about the medicines you take. Follow these tips to manage your medicines. ?? Keep a list of all your medicines. Update the list when you start or stop taking a medicine. Write down changes in how you should take them. ?? Carry your medicine list with you at all times. It will be needed if you have a health emergency. ?? Give the list to your family doctor. Take the list to all your doctor visits. Call your doctor if you have any of the following ?? Temperature higher than 101.5??F ?? Chest pain or difficulty breathing ?? Stomach sickness or throwing up that does not go away ?? You cannot urinate by bedtime ?? Pain is not helped by your medicine. ?? Bandage becomes soaked with blood - Don't remove the bandage, reinforce only ?? Swelling, redness, pain or pus from incision ?? Questions or concerns about your surgery. In the event of an emergency, please go to the closest Emergency Room or call the Emergency Department at [phone]. Smoking and its health risks ?? Smoking is the most preventable cause of illness and in the [place]. Cigarettes are filled with poison that goes into the lungs as you inhale. About 440,000 people every year from illnesses caused by smoking. People who smoke earlier than those who do not smoke. ?? Heart and blood vessel disease, lung disease and ulcers are just some of the health problems that may be caused by smoking. Smoking also slows bone and wound healing and may slow your recovery from surgery. ?? For help quitting smoking, call the [employer] [place]'s Quitline toll free at or ask your doctor for help. Weight Management ?? Weighing too much is not good for your health. Being overweight increases your risk of health conditions such as heart problems, high blood pressure, type 2 diabetes, and certain types of cancer. Being overweight can also increase your risk for osteoarthritis ([id number]) (joint disease), sleep apnea (abnormal breathing at night) or other respiratory (breathing) problems. Being overweight may also cause a person to feel sad or be treated differently by others. ?? The best way to lose weight is to eat fewer calories and get regular exercise. Eating more calories than you need will cause you to gain weight. Try to cut down your calories by 500 calories per day. For example, cut down on one soda (about 150 calories), a small bag of regular potato chips (about 150 calories) and one chocolate bar (about 250 calories). For most people, this change will result in a slow weight loss of about one pound a week. Exercise (for example, walk, swim, or bicycle) for at least 30 minutes on most days of the week. You will be more likely to keep weight off if you make lifelong lifestyle changes. ?? Aim for a slow, steady weight loss. Losing even a small amount of weight can lower your risk of health problems. Ask your dietitian, classification control clerk or doctor about a weight loss goal that is right for you. 06/03 * Op Note - Ruel Gomes MD - 12/27/2024 10:47 AM EDT Operative Note Date: 12/27/24 Location: [facility] OR Name: Juliane Ceballos, : 1965, SURGEON: Ruel Gomes M.D. AIRCRAFT MAINTENANCE MANAGER #1: BECKY Spence AIRCRAFT MAINTENANCE MANAGER #2: Denis Harris MD PREOPERATIVE DIAGNOSIS: Advanced degenerative joint disease secondary to osteoarthritis of the Right Hip POSTOPERATIVE DIAGNOSIS: same PROCEDURE: Right Anterior Total Hip Arthroplasty IMPLANTS: Acetabular component: Sandoval and Nephew R3 50 mm Acetabular screws: 35, 25 mm Acetabular liner: 50/38 OR3O Oxinium Femoral component: Polarstem Sz 3 Std Femoral head: 28+4 mm Oxinium, OR3O XLPE SURGICAL DETAILS: 1) Incision type: Modified Hueter 2) Incision length: 10 cm 3) Muscle repair: None 4) Case duration: 90 min 5) Estimated blood loss: 300 cc? 6) Crystalloid replacement: 1000 cc 7) Anesthesia type: General 8) Capsular injection: 60 cc 0.5% Bupivacaine with epinephrine 9) Specimens removed: Femoral head and acetabular reamings. 10) Preoperative antibiotics: 2 g Cefazolin , 1 g Vancomycin 11) TXA: 2g intravenous INDICATIONS FOR PROCEDURE: This patient presents for total hip arthroplasty for advanced degenerative joint disease of the hip. The patient has failed non-operative treatment. Risks, complications, and benefits of the procedure have been discussed preoperatively to include but not limited to infection, bleeding, anesthesia risks, sciatic nerve palsy, femoral nerve palsy, thigh numbness, instability, limb length discrepancy, aseptic loosening, osteolysis, DVT, continued pain, iatrogenic fracture, OK, stroke, and . The patient completed preoperative medical clearance and joint arthroplasty education. PROCEDURE: The patient was seen in the preoperative holding area. The operative site was confirmed and marked.SCD was placed on the nonoperative leg. The risks, benefits, and alternatives to surgery were againconfirmed with the patient and they wished to proceed. The patient was given iodine swabs for the nares for MRSA decolonization. The patient was brought to the operating room and placed on the operating room table in the supine position. After anesthesia was established, the bilateral ankles were padded with ABD pads, soft roll, and Coban. The feet were placed in the traction boots. The perineal post pad was placed. All bonyprominences were otherwise padded. A surgical time out was taken to confirm the operative side and planned procedure. The patient was given prophylactic antibiotics with Vancomycin and another antibiotic for gram negative coverage within one hour of skin incision. Vancomycin was given over concerns for MRSA infection and the other antibiotic for gram negative coverage. The patient was also given TXA and at skin closure. The hip was prepped and draped in the usual sterile fashion. The patient had complete paralysis at this point to prevent traction related injury. AP of the pelvis was obtained to standardize the hipsfor comparison later in the case. A modified Hueter approach was performed. The incision was carried through the subcutaneous tissue to the underlying tensor fascia , which were incised. The tensor muscle was teased off of the fascia. Retractors were then placed to further develop the interval between the tensor fascia and the rectus femoris. The ascending branches of the lateral femoral circumflex vessels were coagulated using the Aquamantys. Retractors were then placed under the rectus and over the medial capsule and also the superior capsule. The capsulotomy was then performed and suture were placed in both the medial and lateral portions. Sufficient medial capsular release was performed. The femoral neck cut was performed after verifying its position with fluoroscopy. With slight traction and external rotation, the femoral head was removed. Retractors were then placed to expose the acetabulum. The acetabulum was reamed to give a line to line press fit, using fluoroscopy for assistance. The acetabular component was impacted into position targeting 40-45 degrees of abduction and 20-25 degrees of anteversion. Screw fixation was utilized to enhance acetabular component fixation. Fl uoroscopy was used to confirm acetabular component position. The acetabular liner was placed and impacted into position. The liner locking mechanism engaged. Attention was then turned to the femoral side. With the femur rotated to 120o without any traction, a retractor was placed medially to the calcar.The superolateral capsular release was then performed to allow for delivering the femur up into theincision. The hip was then placed in extension and adduction. Retractor was then placed over the tip of the greater trochanter. Femoral preparation was started with a box osteotome and canal finder. The canal was sequentially broached to a stable fit. The final broach was impacted into position in approximately 10 degrees of anteversion, following the posterior calcar for assistance with version.. The trial head was placed. Retractors were removed. The leg was then brought into neutral, and then traction was applied with internal rotation to reduce the hip. Fluoroscopy was used to check the stem size, position, and leg lengths. The hip stability was assessed. The hip was stable in extensionand external rotation as well as in flexion, adduction of 20 degrees and internal rotation to 80 degrees. The hip was dislocated, the trial broach was removed, the canal irrigated with pulsatile lavage and dried, and the final stem was inserted in routine fashion. After placement of the stem, the trunnion was cleansed and dried and the modular head firmly impacted in place and the hip reduced. Again, leg length assessment and stability assessment of the hip were performed to confirm optimal component selection. The wound was irrigated with sterile dilute betadine solution and hemostasis obtained. Final imaging of the hip was obtained. Vancomycin powder was placed into the hip incision. 1g TXA was given IV at this point. The pericapsular injection was performed with the local anesthetic. The anterior hip capsule was repaired utilizing the #5 Fiberwire. The tensor fascia was then closed with #1 Vicryl and Stratafix. The subcutaneous tissue was closed in layers with Stratafix with skin closure using a running subcuticular and Dermabond Prineo followed by Tegaderm dressing. SCD was placed to the operative limb. The patient tolerated the procedure well and was taken to the recovery room in good condition. Complications: None apparent. Sponge, instrument, and needle counts were correct x 2. Delay in starting chemical prophylaxis for 23 hours from surgical incision was over concerns for hematoma formation and wound related issues. There was no qualified resident for this case. BECKY Spence who has operative credentials at the [facility]. Her assistance wasneeded for exposure, retraction, implantation and closure of the wound. I was present for the entire procedure. Submitted by: Ruel Gomes MD - 12/27/2024 Hip Approach: Direct anterior AJRR Anticipated Discharge or exclusion: Anticipate discharge home. * Progress Notes - Nancy Cui RN - 12/27/2024 8:54 AM EDT Case Management Adult Progress Note Juliane Ceballos 59 y.o. female CSN: [id number] Admission: 12/27/2024 6:20 AM Primary Problem: Unilateral primary osteoarthritis, right hip RW to be delivered to bedside today by [facility]. Nancy Cui RN * Discharge Summary - Douglas Ang MD - 12/27/2024 7:28 AM EDT Hospitalization Admit Date/Time: 12/27/2024 6:20 AM Admitting Attending: Ruel Gomes Discharge Date: 12/28/24 Discharge Attending Physician: Ruel Gomes MD PCP name and Address: Ruel Levi MD [address] [facility] / [place] [address] Referring provider name and address: System, Provider Not In, [address] [place], [place] [id number] Chief Concern, Brief History of Present Illness, and Hospital Course Patient arrived to [facility] on 12/27/24 for their scheduled surgery. Patient toleratedthe procedure without complication, was extubated in the operating room, and transferred to the PACU for recovery from anesthesia. Shortly thereafter, patient was transferred to the acute care floor for recovery. Patient's hospital course was with/without complications. Patient was given prophylactic antibiotics, pain was controlled on oral pain medications, and patient tolerated a regular diet. The patient was kept on DVT prophylaxis with SCD's and Eliquis due to contraindication to NSAIDs. The patient was cleared to be discharged by PT/OT prior to discharge. The patient was discharged [facility]. Surgeries and Procedures ARTHROPLASTY, HIP, TOTAL, ANTERIOR APPROACH (Right) Medication List PAUSE taking these medications ibuprofen 200 MG tablet Wait to take this until your doctor or other care provider tells you to start again. Take 3 tablets by mouth every 6 hours as needed for mild pain. .. acetaminophen 500 MG tablet Commonly known as: Tylenol Take 2 tablets by mouth every 8 hours. apixaban 2.5 MG tablet Commonly known as: Eliquis Take 1 tablet by mouth 2 times a day. For 4 weeks post-op for blood clot prevention cefadroxil 500 MG capsule Commonly known as: Duricef Take 1 capsule by mouth 2 times a day for 7 days. To prevent post-op infection diazePAM 5 MG tablet Commonly known as: Valium Take 1 tablet by mouth nightly. Diclofenac Sodium 3 % gel Apply 1 g topically nightly. docusate sodium 250 MG capsule Commonly known as: Colace Take 1 capsule by mouth 2 times a day. To prevent constipation while taking pain medications naloxone 4 mg/0.1 mL nasal spray Commonly known as: Narcan 1. Give 1 spray in nostril for no/slow breathing or cannot wake after opioid use 2. Call 911 3. Repeat in other nostril if symptoms continue omeprazole [address] capsule Commonly known as: PriLOSEC Take 1 capsule by mouth daily for 28 days. Do not crush or chew. ondansetron ODT 4 MG disintegrating tablet Commonly known as: Zofran-ODT Dissolve 1 tablet on the tongue every 8 hours as needed for nausea or vomiting. oxyCODONE 5 MG immediate release tablet Commonly known as: Roxicodone Take 1 tablet by mouth every 6 hours as needed for severe pain. pregabalin 50 MG capsule Commonly known as: Lyrica Take 1 capsule by mouth 2 times a day. Stress Formula tablet Take 1 tablet by mouth 1 time each day. traMADol 50 MG tablet Commonly known as: Ultram Take 1 tablet by mouth every 4 hours as needed for severe pain. tranexamic acid 650 MG tablet tablet Commonly known as: Lysteda Take 1 tablet by mouth 3 times a day for 3 days. Where to Get Your Medications These medications were sent to [facility] [place] [address] acetaminophen 500 MG tablet apixaban 2.5 MG tablet cefadroxil 500 MG capsule docusate sodium 250 MG capsule naloxone 4 mg/0.1 mL nasal spray omeprazole [address] capsule ondansetron ODT 4 MG disintegrating tablet oxyCODONE 5 MG immediate release tablet traMADol 50 MG tablet tranexamic acid 650 MG tablet tablet Discharge Diagnosis Medical Problems Active and Resolved Hospital Problems Hospital Arthritis of right hip Primary osteoarthritis of right hip * (Principal) RESOLVED: Unilateral primary osteoarthritis, right hip Post Discharge Instructions See post op instructions Outpatient Follow-Up Future Appointments Date Time Provider Department Center 01/18/2025 2:00 PM [facility] 02/08/2025 2:30 PM Ruel Gomes MD [facility] Test Results Pending At Discharge Pending Labs Order Current Status Surgical Pathology Exam In process Pertinent Physical Exam At Time of Discharge Physical Exam FOCUSED MUSCULOSKELETAL EXAM right lower extremity Inspection: Dressings in place, c/d/i Motor Exam: TA, GSC, EHL, FHL intact Sensory Exam: SILT DP, SP, Parmar, Sa, and Tib nerve distributions Vascular Exam: Palpable DP pulse, Cap refill <2 seconds, Toes WWP Compartment soft and compressible No pain with passive stretch of the toes Discharge Disposition/Condition Disposition: Home Condition: Stable (s/sx potential problems absent or manageable) I spent >30 minutes of patient care and instruction time in preparation for this discharge. Ann-Marie Ang MD PGY-1, Orthopaedic Surgery [facility] Cosigned by Ruel Gomes MD at 12/28/2024 5:04 PM EDT Associated attestation - Ruel Gomes MD - 12/28/2024 5:04 PM EDT I saw and evaluated the patient with the resident/fellow. I discussed the case with the resident/fellow and agree with the findings and plan as documented. * H&P - Denis Harris MD - 12/27/2024 6:49 AM EDT Chief Complaint: Right Hip pain History of Present Illness: Juliane Ceballos is a 59 y.o. female presenting with above complaint and was previously evaluated and deemed a candidate for surgery based on history and physical exam. They are feeling well on day of surgery. No changes to medical history. All questions answered. Past Medical History: has a past medical history of Chronic back pain, Delayed emergence from general anesthesia, and Murmur. She has no past medical history of Malignant hyperthermia. Surgical History: has a past surgical history that includes Lumbar fusion; Rotator cuff repair (Left); Carpal tunnel release (Bilateral); Hysterectomy; Tubal ligation; Gastric restriction surgery; Cervical fusion; Foot surgery (Left); ORIF ankle fracture; Other surgical history (Bilateral); and Vertebroplasty. Family History: Family History[1] Social History: reports that she has never smoked. She has never been exposed to tobacco smoke. She has never used smokeless tobacco. She reports that she does not drink alcohol and does not use drugs. Allergies: Eletriptan Medications: Current Medications[2] Review of systems: negative unless noted in the HPI Physical exam: Last recorded vitals: Height 1.626 m (5' 4 ), weight 76.2 kg (168 lb). refer to nursing notes General: no apparent distress, nonlabored breathing HEENT: speaks clearly, eyes open CV: perfused extremities Respiratory: moves air well, nonlabored breathing Ext: Right lower extremity: Inspection: No evidence of skin rashes, lesions, or wounds around the right hip or thigh. Motor: Motor intact EHL, FHL, TA, and GSC. Sensory: SILT in Sa, Parmar, DP, SP, and T nerve distributions. Vascular: Foot is Wwp Refer to anesthesiology H and P for other pertinent physical findings related to surgical preparedness. Assessment/Plan: Unilateral primary osteoarthritis, right hip Procedure(s) (LRB): ARTHROPLASTY, HIP, TOTAL, ANTERIOR APPROACH (Right) NPO since midnight Right lateral knee is marked Informed consent obtained and electronically uploaded to the patient's chart To OR with Dr. Gomes for right total hip arthroplasty. Denis Harris MD Orthopedic Surgery PGY-2 [facility] Personal Pager: [phone] Orthopaedic Trauma Service Pager: [phone] Orthopaedic Recon/Spine/Foot and Ankle Service Pager: [phone] [1] Family History Problem Relation Name Age of Onset Anesthesia problems Neg Hx Malig Hyperthermia Neg Hx [2] Current Facility-Administered Medications Medication Dose Route Frequency Provider Last Rate Last Admin acetaminophen (Tylenol) tablet 1,000 mg 1,000 mg Oral Once Ruel Gomes MD ceFAZolin (Ancef) injection 2 g 2 g Intravenous Once Ruel Gomes MD dexamethasone (Decadron) injection 8 mg 8 mg Intravenous Once Ruel Gomes MD gabapentin (Neurontin) capsule 300 mg 300 mg Oral Once Ruel Gomes MD ketorolac (Toradol) injection 15 mg 15 mg Intravenous Once Ruel Gomes MD oxyCODONE (Roxicodone) immediate release tablet 5 mg 5 mg Oral Once Ruel Gomes MD Povidone-Iodine 5 % swab solution 1 Application 1 Application Nasal Once Ruel Gomes MD scopolamine (Transderm-Scop) patch 1 patch 1 patch Transdermal Once Ruel Gomes MD sodium chloride 0.9 % flush 10 mL 10 mL Intravenous q8h PRN Ruel Gomes MD And sodium chloride 0.9 % flush 10 mL 10 mL Intravenous PRN Ruel Gomes MD traMADol (Ultram) tablet 50 mg 50 mg Oral Once Ruel Gomes MD tranexamic acid (Cyklokapron) IVPB 1,000 mg 1,000 mg Intravenous Once Ruel Gomes MD tranexamic acid (Cyklokapron) IVPB 1,000 mg 1,000 mg Intravenous Once Ruel Gomes MD vancomycin in NS (Vancocin) IVPB 1,250 mg 15 mg/kg Intravenous Once Ruel Gomes MD Cosigned by Ruel Gomes MD at 12/27/2024 10:13 AM EDT Associated attestation - Ruel Gomes MD - 12/27/2024 10:13 AM EDT I saw and evaluated the patient with the resident/fellow. I discussed the case with the resident/fellow and agree with the findings and plan as documented. documented in this encounter Plan of Treatment Upcoming Encounters Date Type Department Care Team (Latest Contact Info) Description 02/28/2025 10:05 AM EDT Hospital Encounter [facility] Operating Room [address] [place] [address] Ruel Gomes MD [address] [place] [address] 02/28/2025 10:05 AM EDT - 02/28/2025 12:25 PM EDT Surgery [facility] Operating Room [address] [place] [address] Ruel Gomes MD [address] [place] [address] ARTHROPLASTY, HIP, TOTAL, ANTERIOR APPROACH [63676 (CPT )] 03/15/2025 11:00 AM EDT Office Visit [facility] [address], [address] [place] [address] Tamica Orta PA [address] [place] [address] 04/12/2025 11:20 AM EDT Office Visit Medical Office [facility] [address] [place] [address] Ruel Gomes MD [address] [place] [address] Scheduled Procedures Name Priority Associated Diagnoses Date/Ti me ARTHROPLASTY, HIP, TOTAL, ANTERIOR APPROACH Arthritis of left hip 02/28/2025 10:05 AM EDT Scheduled Referrals Name Type Priority Associated Diagnoses Order Schedule Discharge Ambulatory referral to Physical Therapy Outpatient Referral Routine Arthritis of right hip 1 Occurrences starting 12/27/2024 until 06/30/2026 documented as of this encounter Procedures Procedure Name Priority Date/Time Associated Diagnosis Comments XR HIP RIGHT 2 OR 3 VIEWS STAT 12/27/2024 12:32 PM EDT FL LESS THAN 1 HOUR (NON-REPORTABLE) Routine 12/27/2024 11:31 AM EDT SURGICAL PATHOLOGY EXAM Routine 12/27/2024 10:57 AM EDT Unilateral primary osteoarthritis, right hip NC TOTAL HIP ARTHROPLASTY 12/27/2024 10:06 AM EDT Unilateral primary osteoarthritis, right hip documented in this encounter Results * XR Hip Right 2 or 3 Views (12/27/2024 12:32 PM EDT) Anatomical Region Laterality Modality Lower Extremities, Hip Right Digital R adiography Impressions 12/27/2024 12:36 PM EDT Expected postoperative changes of right noncemented total hip arthroplasty. CRITICAL RESULT: No. COMMUNICATION: Per this written report. Drafted by Tad Lee MD on 12/27/2024 12:35 PM Final report signed by Tad Lee MD on 12/27/2024 12:36 PM Narrative 12/27/2024 12:36 PM EDT CLINICAL INDICATION: TOTAL RIGHT HIP REPLACEMENT TECHNIQUE: XR HIP RIGHT 2 OR 3 VIEWS COMPARISON: October 26, 2024 FINDINGS: 3 views of the right hip show noncemented total hip arthroplasty with expected air in the soft tissues. No complication. Superior lateral left hip joint space narrowing and osteophyte formation. Narrowing of the pubic symphysis. Mild degenerative changes of the sacroiliac joints. Procedure Note Tad Lee MD - 12/27/2024 CLINICAL INDICATION: TOTAL RIGHT HIP REPLACEMENT TECHNIQUE: XR HIP RIGHT 2 OR 3 VIEWS COMPARISON: October 26, 2024 FINDINGS: 3 views of the right hip show noncemented total hip arthroplasty withexpected air in the soft tissues. No complication. Superior lateral lefthip joint space narrowing and osteophyte formation. Narrowing of the pubicsymphysis. Mild degenerative changes of the sacroiliac joints. IMPRESSION: Expected postoperative changes of right noncemented total hiparthroplasty. CRITICAL RESULT: No. COMMUNICATION: Per this written report. Drafted by Tad Lee MD on 12/27/2024 12:35 PM Final report signed by Tad Lee MD on 12/27/2024 12:36 PM us Ruel Gomes MD IMG XR PROCEDURES Final Resu lt * FL Less than 1 Hour Intraoperative (12/27/2024 11:31 AM EDT) Narrative IMAGING - 12/27/2024 11:31 AM EDT Images were obtained for surgical purposes. See Ruel Gomes's surgical note in the patient's chart for the findings. us Ruel Gomes MD IMG FLUOROSCOPY PROCEDURES F inal Result IMAGING * Surgical Pathology Exam (12/27/2024 10:57 AM EDT) Case Report Surgical Pathology Case: [id number] Authorizing Provider: Ruel Gomes MD Collected: 12/27/2024 1057 [facility] Operating Room Received: 12/27/2024 1241 Pathologist: No Keita MD Specimen: Hip, Right, right hip bone 02/09/2025 2:16 PM EDT [facility] Final Diagnosis A. BONE, RIGHT FEMORAL HEAD; RESECTION: - DEGENERATIVE JOINT DISEASE; GROSS ONLY ASSESSMENT. 02/09/2025 2:16 PM EDT [facility] at 1416 EDT Clinical Information Unilateral primary osteoarthritis, right hip [M16.11] 02/09/2025 2:16 PM EDT [facility] Gross Description A. RIGHT HIP BONE Received in formalin labeled [facility] hip bone , is an irregularly-sha ped femoral head measuring 5.4 x 5.0 x 5.7 cm. The articular surface is a pink-flores and roughened. Eburnation covers approximately 50 % of surface area. A severe amount of osteophyte formation is present. Sectioning reveals a yellow-flores porous cut surface with red-brown hemorrhage. Gross photographs are taken and specimen is submitted for gross only diagnosis. Batool Sanchez 02/09/2025 2:16 PM EDT [facility] Note: A resident was involved in the service. I attest I examined the relevant preparations for the specimens and confirmed the diagnosis or interpretation. 02/09/2025 2:16 PM EDT [facility] Bone Right hip region structure / Unknown 12/27/2024 10:57 AM EDT 12/27/2024 12:41 PM EDT Comment:Pre-op diagnosis: Unilateral primary osteoarthritis, right hip [M16.11] us Ruel Gomes MD LAB PATHOLOGY ORDERABLES Sergey thomson Result [facility] [address] [place] [address] documented in this encounter Visit Diagnoses Diagnosis Unilateral primary osteoarthritis, right hip- Primary Arthritis of right hip Arthritis of right hip Primary osteoarthritis of right hip Arthritis of left hip documented in this encounter Admitting Diagnoses Diagnosis Unilateral primary osteoarthritis, right hip Arthritis of right hip Primary osteoarthritis of right hip documented in this encounter Administered Medications Inactive Administered Medications - up to 3 most recent administrations Medication Order MAR Action Action Date Dose Rate Site acetaminophen (Tylenol) tablet 1,000 mg 1,000 mg, Oral, Once, 1 dose, On Fri12/27/24 at 0730, Routine, Holding - Preprocedure Given 12/27/2024 8:41 AM EDT 1,000 mg acetaminophen (Tylenol) tablet 1,000 mg 1,000 mg, Oral, Every 8 hours scheduled, First dose on Fri12/27/24 at 1400, Until Discontinued, Routine, Recovery(Phase II-Outpatient)/On Unit(Inpatient) Given 12/28/2024 5:41 AM EDT 1,000 mg Given 12/27/2024 10:13 PM EDT 1,000 mg apixaban (Eliquis) tablet 2.5 mg 2.5 mg, Oral, Once, 1 dose, On Fri12/28/24 at 0800, Routine, Recovery(Phase II-Outpatient)/On Unit(Inpatient) Given 12/28/2024 8:38 AM EDT 2.5 mg apixaban (Eliquis) tablet 2.5 mg 2.5 mg, Oral, 2 times daily, First dose on Fri12/28/24 at 2100, Until Discontinued, Routine, Recovery(Phase II-Outpatient)/On Unit(Inpatient) bethanechol (Urecholine) tablet 20 mg 20 mg, Oral, Once as needed, 1 dose, Starting on Fri12/27/24 at 1051, Until Fri12/28/24 at 1459, Routine, Recovery(Phase II-Outpatient)/On Unit(Inpatient), other, post-op urinary retention bisacodyl (Dulcolax) suppository 10 mg 10 mg, Rectal, 2 times daily PRN, Starting on Fri12/27/24 at 1051, Until Fri12/28/24 at 1459, Routine, Recovery(Phase II-Outpatient)/On Unit(Inpatient), constipation, for constipation - use if no bowel movement after giving magnesium hydroxide calcium-vitamin D 500-200 MG-UNIT per tablet 1 tablet 1 tablet, Oral, 2 times daily with meals, First dose on Fri12/27/24 at 2100, Until Discontinued, Routine, Recovery(Phase II-Outpatient)/On Unit(Inpatient) Given 12/28/2024 8:38 AM EDT 1 tablet Given 12/27/2024 10:12 PM EDT 1 tablet ceFAZolin (Ancef) injection 2 g 2 g, Intravenous, Every 8 hours, 3 doses, First dose on Fri12/27/24 at 1700, Last dose on Fri12/28/24 at 0900, Routine, Recovery(Phase II-Outpatient)/On Unit(Inpatient) Given 12/28/2024 8:38 AM EDT 2 g Given 12/28/2024 12:51 AM EDT 2 g Given 12/27/2024 5:53 PM EDT 2 g dexamethasone (Decadron) injection 8 mg 8 mg, Intravenous, Once, 1 dose, On Fri12/27/24 at 0730, Routine, Holding - Preprocedure Given 12/27/2024 9:10 AM EDT 8 mg diphenhydrAMINE (Benadryl) tablet 12.5 mg 12.5 mg, Oral, Every 4 hours PRN, Starting on Fri12/27/24 at 1051, Until Fri12/28/24 at 1459, Routine, Recovery(Phase II-Outpatient)/On Unit(Inpatient), itching, sleep fentaNYL (Sublimaze) injection 25 mcg 25 mcg, Intravenous, Every 5 min PRN, 2 doses, Starting on Fri12/27/24 at 1135, Until Fri12/27/24 at 1653, Routine, Recovery (Phase I only), pain score of 3-4 out of 10 Given 12/27/2024 12:25 PM EDT 25 mcg gabapentin (Neurontin) capsule 100 mg 100 mg, Oral, Every 8 hours, First dose on Fri12/27/24 at 1600, Until Discontinued, Routine, Recovery(Phase II-Outpatient)/On Unit(Inpatient) Given 12/28/2024 8:38 AM EDT 100 mg Given 12/27/2024 11:09 PM EDT 100 mg gabapentin (Neurontin) capsule 300 mg 300 mg, Oral, Once, 1 dose, On Fri12/27/24 at 0730, Routine, Holding - Preprocedure Given 12/27/2024 8:41 AM EDT 300 mg HYDROmorphone (Dilaudid) injection 0.5 mg 0.5 mg, Intravenous, Every 6 hours PRN, Starting on Fri12/27/24 at 1051, Until Fri12/28/24 at 1459, Routine, Recovery(Phase II-Outpatient)/On Unit(Inpatient), severe pain, pain score 9-10 magnesium hydroxide (Milk of Magnesia) 400 MG/5ML suspension 30 mL 30 mL, Oral, 2 times daily PRN, Starting on Fri12/27/24 at 1051, Until Fri12/28/24 at 1459, Routine, Recovery(Phase II-Outpatient)/On Unit(Inpatient), constipation, for constipation - use as first line agent ondansetron (Zofran) injection 4 mg 4 mg, Intravenous, Every 6 hours PRN, Starting on Fri12/27/24 at 1051, Until Fri12/28/24 at 1459, Routine, Recovery(Phase II-Outpatient)/On Unit(Inpatient), nausea, vomiting oxyCODONE (Roxicodone) immediate release tablet 5 mg 5 mg, Oral, Once, 1 dose, On Fri12/27/24 at 0730, Routine, Holding - Preprocedure Given 12/27/2024 8:41 AM EDT 5 mg oxyCODONE (Roxicodone) immediate release tablet 5 mg 5 mg, Oral, Every 4 hours PRN, Starting on Fri12/27/24 at 1051, Until Fri12/28/24 at 1459, Routine, Recovery(Phase II-Outpatient)/On Unit(Inpatient), moderate pain, severe pain, Severe pain 5-8 Given 12/27/2024 11:09 PM EDT 5 mg Given 12/27/2024 5:52 PM EDT 5 mg oxyCODONE (Roxicodone) immediate release tablet 5 mg 5 mg, Oral, Once as needed, 2 doses, Starting on Fri12/27/24 at 1135, Until Fri12/27/24 at 1653, Routine, Recovery (Phase I only), pain score of 3-5 out of 10 Given 12/27/2024 12:34 PM EDT 5 mg pantoprazole (Protonix) EC tablet 40 mg 40 mg, Oral, Daily before breakfast, First dose on Fri12/27/24 at 1145, Until Discontinued, Routine, Recovery(Phase II-Outpatient)/On Unit(Inpatient) Given 12/28/2024 8:38 AM EDT 40 mg polyethylene glycol (Miralax) packet 17 g 17 g, Oral, Daily with breakfast, First dose on Fri12/28/24 at 0800, Until Discontinued, Routine, Recovery(Phase II-Outpatient)/On Unit(Inpatient) Given 12/28/2024 8:38 AM EDT 17 g Povidone-Iodine 5 % swab solution 1 Application Nasal, Once, 1 dose, On Fri12/27/24 at 0730, Routine Given 12/27/2024 8:46 AM EDT 1 Application scopolamine (Transderm-Scop) patch 1 patch 1 patch, Transdermal, Once, 1 dose, On Fri12/27/24 at 0730, Routine, Holding - PreprocedureIndicati ons:Surgery Medication Applied 12/27/2024 8:41 AM EDT 1 patch Behind Right Ear senna-docusate (Jayne-Colace) 8.6-50 MG per tablet 2 tablet 2 tablet, Oral, Nightly, First dose on Fri12/27/24 at 2100, Until Discontinued, Routine, Recovery(Phase II-Outpatient)/On Unit(Inpatient) Given 12/27/2024 10:12 PM EDT 2 tablets traMADol (Ultram) tablet 100 mg 100 mg, Oral, Every 8 hours scheduled, First dose on Fri12/27/24 at 1400, Until Discontinued, Routine, Recovery(Phase II-Outpatient)/On Unit(Inpatient) Given 12/28/2024 5:41 AM EDT 100 mg Given 12/27/2024 10:12 PM EDT 100 mg traMADol (Ultram) tablet 50 mg 50 mg, Oral, Once, 1 dose, On Fri12/27/24 at 0730, Routine, Holding - Preprocedure Given 12/27/2024 8:41 AM EDT 50 mg traMADol (Ultram) tablet 50 mg 50 mg, Oral, Every 12 hours PRN, Starting on Fri12/27/24 at 1051, Until Fri12/28/24 at 1459, Routine, Recovery(Phase II-Outpatient)/On Unit(Inpatient), severe pain, pain score 3-5. use prior to oxycodone or hydromorphone vancomycin in NS (Vancocin) IVPB 1,250 mg 1,250 mg (rounded from 1,165.5 mg = 15 mg/kg 77.7 kg), Intravenous, Once, 1 dose, On Fri12/27/24 at 0730, at 200 mL/hr, STAT New Bag 12/27/2024 7:41 AM EDT 1,250 mg 200 mL/hr documented in this encounter Active and Recently Administered Medications Times are shown in EDT. Scheduled Medication Order 12/26/2024 12/27/2024 12/28/2024 acetaminophen (Tylenol) tablet 1,000 mg (COMPLETED) 1,000 mg, Oral, Once, 1 dose, On Fri12/27/24 at 0730, Routine, Holding - Preprocedure 0841 (Given - Provider: Asha Sandoval RN) acetaminophen (Tylenol) tablet 1,000 mg 1,000 mg, Oral, Every 8 hours scheduled, First dose on Fri12/27/24 at 1400, Until Discontinued, Routine, Recovery(Phase II-Outpatient)/On Unit(Inpatient) 1746 (Not Given - Provider: Paola Lancaster RN - Reason: Patient in procedure - Comment: Pt was in surgery at 1400)2213 (Given - Provider: Helga Fuentes) 0541 (Given - Provider: Helga Fuentes)1400 (Canceled Entry - Provider: Automatic Discharge Provider - Comment: Automatically canceled at discontinue of medication order) apixaban (Eliquis) tablet 2.5 mg (COMPLETED)(Linked Group 1) 2.5 mg, Oral, Once, 1 dose, On Fri12/28/24 at 0800, Routine, Recovery(Phase II-Outpatient)/On Unit(Inpatient) 0838 (Given - Provid er: Tyler Jimenez RN) apixaban (Eliquis) tablet 2.5 mg(Linked Group 1) 2.5 mg, Oral, 2 times daily, First dose on Fri12/28/24 at 2100, Until Discontinued, Routine, Recovery(Phase II-Outpatient)/On Unit(Inpatient) calcium-vitamin D 500-200 MG-UNIT per tablet 1 tablet 1 tablet, Oral, 2 times daily with meals, First dose on Fri12/27/24 at 2100, Until Discontinued, Routine, Recovery(Phase II-Outpatient)/On Unit(Inpatient) 2212 (Given - Provider: Helga Fuentes - Comment: pt upto restroom) 0838 (Given - Provider: Tyler Jimenez, SIMA) ceFAZolin (Ancef) injection 2 g (COMPLETED) 2 g, Intravenous, Once, 1 dose, On Fri12/27/24 at 0730, Routine, Anesthesia Intraprocedure 1038 (Given - Provider: Estrellita Lunsford) ceFAZolin (Ancef) injection 2 g (COMPLETED) 2 g, Intravenous, Every 8 hours, 3 doses, First dose on Fri12/27/24 at 1700, Last dose on Fri12/28/24 at 0900, Routine, Recovery(Phase II-Outpatient)/On Unit(Inpatient) 1753 (Given - Provider: Paola Lancaster RN) 0051 (Given - Provider: Helga Fuentes)0838 (Given - Provider: Tyler Jimenez, SIMA) dexamethasone (Decadron) injection 8 mg (COMPLETED) 8 mg, Intravenous, Once, 1 dose, On Fri12/27/24 at 0730, Routine, Holding - Preprocedure 0910 (Given - Provider: Asha Sandoval RN) gabapentin (Neurontin) capsule 100 mg 100 mg, Oral, Every 8 hours, First dose on Fri12/27/24 at 1600, Until Discontinued, Routine, Recovery(Phase II-Outpatient)/On Unit(Inpatient) 1746 (Not Given - Provider: Paola Lancaster RN - Reason: Patient in procedure)2309 (Given - Provider: Helga Fuentes) 0838 (Given - Provider: Tyler Jimenez, SIMA) gabapentin (Neurontin) capsule 300 mg (COMPLETED) 300 mg, Oral, Once, 1 dose, On Fri12/27/24 at 0730, Routine, Holding - Preprocedure 0841 (Given - Provider: Asha Sandoval RN) oxyCODONE (Roxicodone) immediate release tablet 5 mg (COMPLETED) 5 mg, Oral, Once, 1 dose, On Fri12/27/24 at 0730, Routine, Holding - Preprocedure 0841 (Given - Provider: Asha Sandoval RN) pantoprazole (Protonix) EC tablet 40 mg 40 mg, Oral, Daily before breakfast, First dose on Fri12/27/24 at 1145, Until Discontinued, Routine, Recovery(Phase II-Outpatient)/On Unit(Inpatient) 1145 (Canceled Entry - Provider: Automatic Discharge Provider - Comment: Automatically canceled at discontinue of medication order) 0838 (Given - Provider: Tyler Jimenez RN) polyethylene glycol (Miralax) packet 17 g 17 g, Oral, Daily with breakfast, First dose on Fri12/28/24 at 0800, Until Discontinued, Routine, Recovery(Phase II-Outpatient)/On Unit(Inpatient) 0838 (Given - Provid er: Tyler Jimenez RN) Povidone-Iodine 5 % swab solution 1 Application (COMPLETED) Nasal, Once, 1 dose, On Fri12/27/24 at 0730, Routine 0846 (Given - Provider: Asha Sandoval RN) scopolamine (Transderm-Scop) patch 1 patch 1 patch, Transdermal, Once, 1 dose, On Fri12/27/24 at 0730, Routine, Holding - Preprocedure 0841 (Medication Applied - Provider: Asha Sandoval RN) 1259 (Due: Medication Removed - Provider: Automatic Discharge Provider - Comment: Time automatically adjusted from order being discontinued) senna-docusate (Jayne-Colace) 8.6-50 MG per tablet 2 tablet 2 tablet, Oral, Nightly, First dose on Fri12/27/24 at 2100, Until Discontinued, Routine, Recovery(Phase II-Outpatient)/On Unit(Inpatient) 2212 (Given - Provider: Helga Fuentes - Comment: pt up) traMADol (Ultram) tablet 100 mg 100 mg, Oral, Every 8 hours scheduled, First dose on Fri12/27/24 at 1400, Until Discontinued, Routine, Recovery(Phase II-Outpatient)/On Unit(Inpatient) 1746 (Not Given - Provider: Paola Lancaster RN - Reason: Patient in procedure)2212 (Given - Provider: Helga Fuentes) 0541 (Given - Provider: Helga Fuentes)1400 (Canceled Entry - Provider: Automatic Discharge Provider - Comment: Automatically canceled at discontinue of medication order) traMADol (Ultram) tablet 50 mg (COMPLETED) 50 mg, Oral, Once, 1 dose, On Fri12/27/24 at 0730, Routine, Holding - Preprocedure 0841 (Given - Provider: Asha Sandoval RN) tranexamic acid (Cyklokapron) IVPB 1,000 mg (COMPLETED) 1,000 mg, Intravenous, Once, 1 dose, On Fri12/27/24 at 0730, Routine, Holding - Preprocedure 1030 (Given - Provider: Estrellita Lunsford)1139 (Given - Provider: Estrellita Lunsford) vancomycin in NS (Vancocin) IVPB 1,250 mg (COMPLETED) 1,250 mg (rounded from 1,165.5 mg = 15 mg/kg 77.7 kg), Intravenous, Once, 1 dose, On Fri12/27/24 at 0730, at 200 mL/hr, STAT 0741 (New Bag - Provider: Asha Sandoval RN) Continuous Medication Order 12/26/2024 12/27/2024 12/28/2024 lactated Ringer's infusion 50 mL/hr, Intravenous, Continuous, Starting on Fri12/27/24 at 1145, Until Fri12/28/24 at 1144, Routine 1145 (Due) PRN Medication Order 12/26/2024 12/27/2024 12/28/2024 bethanechol (Urecholine) tablet 20 mg 20 mg, Oral, Once as needed, 1 dose, Starting on Fri12/27/24 at 1051, Until Fri12/28/24 at 1459, Routine, Recovery(Phase II-Outpatient)/On Unit(Inpatient), other, post-op urinary retention bisacodyl (Dulcolax) suppository 10 mg 10 mg, Rectal, 2 times daily PRN, Starting on Fri12/27/24 at 1051, Until Fri12/28/24 at 1459, Routine, Recovery(Phase II-Outpatient)/On Unit(Inpatient), constipation, for constipation - use if no bowel movement after giving magnesium hydroxide bupivacaine-EPINEPHrine PF (Marcaine w/EPI) 0.5% -[id number] injection (CANCELED) As needed, Starting on Fri12/27/24 at 1057, Until Fri12/27/24 at 1156, Routine, Intraprocedure 1057 (Given - Provider: Ruel Gomes MD) diphenhydrAMINE (Benadryl) tablet 12.5 mg 12.5 mg, Oral, Every 4 hours PRN, Starting on Fri12/27/24 at 1051, Until Fri12/28/24 at 1459, Routine, Recovery(Phase II-Outpatient)/On Unit(Inpatient), itching, sleep fentaNYL (Sublimaze) injection 25 mcg (CANCELED) 25 mcg, Intravenous, Every 5 min PRN, 2 doses, Starting on Fri12/27/24 at 1135, Until Fri12/27/24 at 1653, Routine, Recovery (Phase I only), pain score of 3-4 out of 10 1225 (Given - Provider: Claudia Moreira RN) HYDROmorphone (Dilaudid) injection 0.5 mg 0.5 mg, Intravenous, Every 6 hours PRN, Starting on Fri12/27/24 at 1051, Until Fri12/28/24 at 1459, Routine, Recovery(Phase II-Outpatient)/On Unit(Inpatient), severe pain, pain score 9-10 magnesium hydroxide (Milk of Magnesia) 400 MG/5ML suspension 30 mL 30 mL, Oral, 2 times daily PRN, Starting on Fri12/27/24 at 1051, Until Fri12/28/24 at 1459, Routine, Recovery(Phase II-Outpatient)/On Unit(Inpatient), constipation, for constipation - use as first line agent ondansetron (Zofran) injection 4 mg 4 mg, Intravenous, Every 6 hours PRN, Starting on Fri12/27/24 at 1051, Until Fri12/28/24 at 1459, Routine, Recovery(Phase II-Outpatient)/On Unit(Inpatient), nausea, vomiting oxyCODONE (Roxicodone) immediate release tablet 5 mg 5 mg, Oral, Every 4 hours PRN, Starting on Fri12/27/24 at 1051, Until Fri12/28/24 at 1459, Routine, Recovery(Phase II-Outpatient)/On Unit(Inpatient), moderate pain, severe pain, Severe pain 5-8 1752 (Given - Provider: Paola Lancaster RN)2309 (Given - Provider: Helga Fuentes) oxyCODONE (Roxicodone) immediate release tablet 5 mg (CANCELED)(Linked Group 2) 5 mg, Oral, Once as needed, 2 doses, Starting on Fri12/27/24 at 1135, Until Fri12/27/24 at 1653, Routine, Recovery (Phase I only), pain score of 3-5 out of 10 1234 (Given - Provider: Claudia Moreira RN) traMADol (Ultram) tablet 50 mg 50 mg, Oral, Every 12 hours PRN, Starting on Fri12/27/24 at 1051, Until Fri12/28/24 at 1459, Routine, Recovery(Phase II-Outpatient)/On Unit(Inpatient), severe pain, pain score 3-5. use prior to oxycodone or hydromorphone vancomycin (Vancocin) vial for injection (CANCELED) As needed, Starting on Fri12/27/24 at 1057, Until Fri12/27/24 at 1156, Routine, Intraprocedure 1057 (Given - Provider: Ruel Gomes MD) Linked Groups Order Group 1: apixaban (Eliquis) tablet 2.5 mg (COMPLETED)Jump to med 2.5 mg, Oral, Once, 1 dose, On Fri12/28/24 at 0800, Routine, Recovery(Phase II-Outpatient)/On Unit(Inpatient) Followed by apixaban (Eliquis) tablet 2.5 mgJump to med 2.5 mg, Oral, 2 times daily, First dose on Fri12/28/24 at 2100, Until Discontinued, Routine, Recovery(Phase II-Outpatient)/On Unit(Inpatient) Group 2: oxyCODONE (Roxicodone) immediate release tablet 5 mg (CANCELED)Jump to med 5 mg, Oral, Once as needed, 2 doses, Starting on Fri12/27/24 at 1135, Until Fri12/27/24 at 1653, Routine, Recovery (Phase I only), pain score of 3-5 out of 10 Or oxyCODONE (Roxicodone) immediate release tablet 10 mg (CANCELED) 10 mg, Oral, Once as needed, 2 doses, Starting on Fri12/27/24 at 1135, Until Fri12/27/24 at 1653, Routine, Recovery (Phase I only), pain score of 6-8 out of 10 documented in this encounter Additional Health Concerns Assessment Noted Time A fall risk assessment has been complete d for the patient 10/26/2024 1:35 PM EDT A Body Mass Index follow-up plan has been documented for the patient 12/28/2024 11:37 AM EDT documented as of this encounter Care Teams Rub[employer] Relationship Specialty Start Date End Date Ruel Levi MD [address] [place] [id number] PCP - General 11/03/20 documented as of this encounter
--- OUTSIDE RECORDS SUMMARY | 2024-12-27 09:50 | XMS_ITS | Encounter Summary ---
Author Organization Healthcare Address [address] [place] [address] Care Team Providers Care Oil Separator Name Role Phone Ruel Levi MD Primary Care Provider [phone] Reason for Visit * Auth/Cert (Routine) Specialty Diagnoses / Procedures Referred By Nigel yan Referred To Contact Diagnoses Unilateral primary osteoarthritis, right hip Unilateral primary osteoarthritis, right hip [M16.11] Procedures [place] TOTAL HIP ARTHROPLASTY ARTHROPLASTY, HIP, TOTAL, ANTERIOR APPROACH Ruel Gomes MD [address] [place] [address] Phone: tel: fax: [facility] Operating Room [address] [place] [address] Phone: tel: Referral ID Status Reason Start Date Expiration Date Visits Re quested Visits Authorized [id number] 1 1 Encounter Details Date Type Department Care Team (Late st Contact Info) Description 12/27/2024 9:50 AM EDT - 12/27/2024 12:10 PM EDT Surgery [facility] S Operating Room [address] [place] [address] Ruel Gomes MD [address] [place] [address] ARTHROPLASTY, HIP, TOTAL, ANTERIOR APPROACH [63869 (CPT )] Surgery Details Date/Time Status Location OR Service Patient Class Case Class Case Type Trauma Case? 12/27/2024 9:50 AM Posted [facility] Orthopedic Surgery Extended Recovery E-Electi ve Panel 1 Procedure LRB Anes Op Region Wound Class Comments ARTHROPLASTY, HIP, TOTAL, AN TERIOR APPROACH Right General Hip Class I/ Clean Surgeon Surgeon Role Service Panel Ruel Gomes MD Primary Orthopedic Surgery 1 Denis Harris MD Resident - Assisting 1 documented in this encounter Social History Tobacco Use Types Packs/Day Years [...] Sign Reading Time Taken Comments Blood Pressure 112/60 12/27/2024 12:10 PM EDT Pulse 81 12/27/2024 12:10 PM EDT Temperature 36.8 C (98.2 F) 12/27/2024 12:00 PM EDT Respiratory Rate 13 12/27/2024 12:10 PM EDT Oxygen Saturation 100% 12/27/2024 12:10 PM EDT Inhaled Oxygen Concentration - - Weight 76.2 kg (168 lb) 12/27/2024 6:39 AM EDT Height 162.6 cm (5' 4 ) 12/27/2024 6:39 AM EDT Body Mass Index 28.84 12/27/2024 6:39 AM EDT documented in this encounter Discharge Instructions * Discharge Instructions* [...] equipment (rolling walker owned by patient) History Juliaen Ceballos is 59 y.o. female admitted 12/27/2024 [...] in Care Family/Caregiver Present: Yes Family/Caregiver: Spouse Hospice Physician: Not Applicable Presentation Oxygen Therapy: None (Room [...] admission Level of Mobility: Ambulatory- community Mobility Will: Independent gait without device History of Falls: [...] Mobility Bed Mobility Exam: Rolling/Turning Level of Will: Independent Assistive Device: Bed rails Bed Mobility Exam: Scooting/Bridging Level of Will: Independent Physical/Nonphysical Assist: Supervision, Verbal Cues, Minimal cues Bed Mobility Exam: Supine to Sit Level of Will: Independent Physical/Nonphysical Assist: Supervision, Verbal Cues, Minimal cues Transfers Transfer Exam: Sit to stand Level of Will: Modified independence Physical/Nonphysical Assist: Supervision, Verbal Cues, Minimal cues Assistive Device: Walker, rolling Transfer Exam: Stand to Sit Level of Will: Modified independence Physical/Nonphysical Assist: Supervision, Verbal Cues, Minimal cues Assistive Device: Walker, rolling Transfer Exam: Bed to Chair/Chair to Bed Level of Will: Contact guard Physical/Nonphysical Assist: Supervision, Verbal Cues, Minimal cues Assistive Device: Walker, rolling Toilet Transfer Level of Will: Contact guard Physical/Nonphysical Assist: Supervision, Minimal cues, [...] than prior session Therapeutic Exercise Access Code: [email or web address] URL: [email or web address] Date: 12/27/2024 Prepared by: Paola Gonzalez Program Notes Anterior Hip Exercises - Phase 1 (Days 1-7) Ankle Pumps - 3 x daily - 7 x weekly- 10 reps - Phase 1 (Days 1-7) Knee Push Downs - 3 x daily - 7 x weekly - 10 reps - 3 hold - Phase 1 (Days 1-7) Buttocks Squeeze - 3 x daily - 7 x weekly - 10 reps - 3 hold - Phase 1 (Days 1- 7) Heel Slide (Supine) - 3 x daily - 7 x weekly - 10 reps - 3 hold - Phase 1 (Days 1-7) Short Arc Quad - 3 xdaily - 7 x weekly - 10 reps - 3 hold - Phase 1 (Days 1-7) Hip abduction/Adduction - 3 x daily - 7 x weekly - 10 reps - Phase 1 (Days 1-7) Straight Leg Raises - 3 x daily - 7 x weekly - 10 reps - Phase 1 (Days 1-7) Long Arc Quad - 3 x daily - 7 x weekly - 10 reps - 3 hold - Phase 1 (Days 1-7) Seated Knee Flexion - 3 x daily - 7 x weekly - 10 reps - 3 hold - Phase 2 ( Days 8-14) Seated Ball Squeezes - 3 x daily - 20 reps - 3 hold - Phase 2 ( Days 8-14) Seated Hip Abduction with Towel - 3 x daily- 20 reps - Phase 2 ( Days [...] reps - Phase 3 ( Days 15-) Single Leg Step-Up - 3 x daily [...] 30 hold - Phase 3 ( Days -) Side Step - 3 x daily - 4 reps Patient Education - Anterior Hip Precaution Instructions . Reviewed prior sessionwith patient and - had no questions. Standardized Assessments Standardized Assessments Standardized Assessments: [facility] 6-Clicks Mobility Assessment [facility] 6-Clicks Mobility Assessment Difficulty patient has turning [...] steps with a railing?: A little [facility] 6-Clicks Mobility Assessment Total : 23 Assessment [...] Review Outcome: Ongoing, Progressing Flowsheets (Taken 12/28/2024 102) Plan of Care Reviewed With: patient Goal: Patient-Specific Goal (Individualized) Outcome: Ongoing, Progressing Flowsheets (Taken 12/28/2024746) Patient/Family-Specific Goals (Include Timeframe): Patient will remain free from harm throughout shift Individualized Care Needs: Patient safety Anxieties, Fears or Concerns: None verbalized Goal: Absence of Hospital-Acquired Illness or Injury Outcome: Ongoing, Progressing Intervention: Identify and Manage Fall Risk Flowsheets (Taken 12/28/2024746) Safety Promotion/Fall Prevention: safety [...] Pain and Promote Comfort Flowsheets (Taken 12/28/2024 1021) Pain Management Interventions: pain management plan reviewed [...] Intervention: Develop Pain Management Plan Flowsheets (Taken 12/28/2024 102) Pain Management Interventions: [...] to Surgery and Mobility Changes Flowsheets (Taken 12/28/2024746) Supportive Measures: active listening utilized Goal: Absence of Bleeding Outcome: Ongoing, Progressing Goal: Effective Bowel Elimination Outcome: Ongoing, Progressing Intervention: Enhance Bowel Motility and Elimination Flowsheets (Taken 12/28/2024 102) Bowel Elimination Management: toileting offered Bowel Motility Enhancement: ambulation promoted Goal: Fluid and Electrolyte Balance Outcome: Ongoing, Progressing Intervention: Monitor and Manage Fluid and Electrolyte Balance Flowsheets (Taken 12/28/20241020) Fluid/Electrolyte Management: fluids provided Goal: Optimal Functional Ability Outcome: Ongoing, Progressing Intervention: Promote Optimal Functional Status Flowsheets (Taken 12/28/2024746) Activity Management: activity adjusted per tolerance Self-Care [...] Irizarry PA - 12/28/2024 9:07 AM EDT [facility] Medicine Progress Note Subjective: Dressed and sitting [...] care. Please reach out with questions orconcerns. JUDI BricenoC Division of Hospital Medicine Secure chat preferred [1] lactated Ringer's, 50 mL/hr * María Daugherty RN - 12/28/2024 8:40 AM EDT Images from the original note were not included. 17576 After Hip Replacement: Using Your Walker After [...] walker. Last Reviewed Date: 2024 00:00:00 ?? 2031-8532 The [employer]. All rights reserved. This information is not intended as a substitute for professional medical care. Always follow your healthcare professional's instructions. * Mai MaciasBRETT - María Montgomery RN - 12/28/2024 8:40 AM EDT Images from the original note were not included. 74354 Using an Incentive Spirometer An incentive spirometer [...] rate Last Reviewed Date: 2024 00:00:00 ?? 0524-0657 [employer]. All rights reserved. This information is not intended as a substitute for professional medical care. Always follow your healthcare professional's instructions. * Mai Montgomery María N, RN - 12/28/2024 8:40 AM EDT Images from the original note were not included. 56213 Preventing Deep Vein Thrombosis After Surgery In [...] blood clots. Move your feet in a [place] or up and down. Do this 10 [...] bleeding. Last Reviewed Date: 2024 00:00:00 ?? 3711-7746 [employer]. All rights reserved. This information is not intended as a substitute for professional medical care. Always follow your healthcare professional's instructions. * Mai Cheema - María Montgomery RN - 12/28/2024 8:40 AM EDT Images from the original note were not included. 21894 Preventing a Surgical Site Infection A risk [...] of infection. ?? Controlled body temperature. A japsw-lvfa-qhtfki temperature during or after surgery prevents oxygen [...] and water or with an alcohol-based hand clinical appeals specialist before and after caring for you. Don?t [...] away. Last Reviewed Date: 2024 00:00:00 ?? 2383-0470 The [employer]. All rights reserved. This information is not intended as a substitute for professional medical care. Always follow your healthcare professional's instructions. * Mai GalanIR - María Montgomery RN - 12/28/2024 8:40 [...] medicines unless your doctor approves. This includes vubs-whp-agelnvo medicines like aspirin, ibuprofen and Tylenol. ?? [...] a nutritional supplement such as Boost or Buena Instant Breakfast until your appetite returns to [...] surgery. If you have problems sleeping, take gxpv-zdp-qebzmhc diphenhydramine (Benadryl) or melatonin. ?? If you [...] prescription refill before your next appointment, call [phone]. Call 3 business days before you run out of medicine. ?? To check joint stability over time, you may have X-rays every five years. When should I call the doctor? Call 911 right away if you have any of [...] supervised Intervention: Prevent Skin Injury Flowsheets (Taken 12/27/2024 230) Skin Protection: protective footwear used Intervention: Prevent and Manage VTE (Venous Thromboembolism) Risk Flowsheets (Taken 12/27/20242300) VTE Prevention/Management: lower extremity SCDs (sequential compression devices) on Intervention: Prevent Infection Flowsheets (Taken 12/27/2024 230) Infection Prevention: hand hygiene promoted environmental surveillance performed Goal: Optimal Comfort and Wellbeing Intervention: Monitor Pain and Promote Comfort Flowsheets (Taken 12/27/20242300) Pain Management Interventions: quiet environment facilitated care clustered rest Intervention: Provide Person-Centered Care Flowsheets (Taken 12/27/2024 230) Trust Relationship/Rapport: care explained questions answered questions [...] Intervention: Identify and Manage Contributors Flowsheets (Taken 12/27/20242302) Medication Review/Management: medications reviewed Intervention: Promote Injury-Free Environment Flowsheets (Taken 12/27/20242300) Safety Promotion/Fall Prevention: safety [...] Plan - Paola Lancaster RN - 12/27/2024 8:23 PM EDT Problem: [...] 5:36 PM EDTAssociated Order(s): Inpatient consult to Diana Kerns Inpatient consult to Diana Kerns Consult performed by: Ling Croft APRN Consult [...] 98%. Results Review {Vanishing Link Review Results :[id number] I have reviewed the latest lab and [...] call or page with questions. Ling Croft, [employer] Pager: [phone] [1] Current Facility-Administered Medications Medication Dose Route Frequency Provider Last Rate Last Admin acetaminophen (Tylenol) tablet 1,000 mg 1,000 mg Oral q8h PHYLICIA Douglas Ang MD [START ON 12/28/2024] apixaban [...] in Care Family/Caregiver Present: Yes Family/Caregiver: Spouse Hospice Physician: Not Applicable Presentation Oxygen Therapy: None (Room [...] admission Level of Mobility: Ambulatory- community Mobility Will: Independent gait without device History of Falls: [...] Mobility Bed Mobility Exam: Scooting/Bridging Level of Will: Contact guard Physical/Nonphysical Assist: Supervision, Verbal Cues, Minimal cues Bed Mobility Exam: Supine to Sit Level of Will: Contact guard Physical/Nonphysical Assist: Supervision, Verbal Cues, Minimal cues Transfers Transfer Exam: Sit to stand Level of Will: Contact guard Physical/Nonphysical Assist: Supervision, Verbal Cues, Minimal cues Assistive Device: Walker, rolling Transfer Exam: Stand to Sit Level of Will: Contact guard Physical/Nonphysical Assist: Supervision, Verbal Cues, Minimal cues Assistive Device: Walker, rolling Transfer Exam: Bed to Chair/Chair to Bed Level of Will: Contact guard Physical/Nonphysical Assist: Supervision, Verbal Cues, Minimal cues Assistive Device: Walker, rolling Toilet Transfer Level of Will: Contact guard Physical/Nonphysical Assist: Supervision, Minimal cues, [...] walker. Therapeutic Exercise (5 minutes) Access Code: [email or web address] URL: [email or web address] Date: 12/27/2024 Prepared by: Paola Gonzalez Program [...] 3 hold - Phase 1 (Days 1-7) Seated Knee Flexion - 3 x daily - 7 x weekly - 10 reps - 3 hold - Phase 2 ( Days 8-14) Seated Ball Squeezes - 3 x daily - 20 reps - 3 hold - Phase 2 ( Days 8-14) Seated Hip Abduction with Towel - 3 x daily- 20 reps - Phase 2 ( Days [...] Phase 2 ( Days 8-) Standing Heel Raise - 3 x daily - 20 reps - Wall slide Phase 3 Days 15- - 3 x daily - 20 reps - Phase 3 ( Days 15-) Single Leg Step-Up - 3 x daily [...] 3 ( Days 15-) Side Step - 3 x daily - 4 reps Patient Education - Anterior Hip Precaution Instructions . Patient and instructed in QR code and website to further show them how to do exercises correctively. Standardized Assessments Standardized Assessments Standardized Assessments: [facility] 6-Clicks Mobility Assessment [facility] 6-Clicks Mobility Assessment Difficulty patient has turning [...] steps with a railing?: A lot [facility] 6-Clicks Mobility Assessment Total : 18 Assessment [...] in Care Family/Caregiver Present: Yes Family/Caregiver: Spouse Hospice Physician: Not Applicable Presentation Oxygen Therapy: None (Room [...] admission Level of Mobility: Ambulatory- community Mobility Will: Independent gait without device History of Falls: [...] Mobility Bed Mobility Exam: Scooting/Bridging Level of Will: Contact guard Physical/Nonphysical Assist: Supervision, Verbal Cues, Minimal cues Assistive Device: Bed rails Bed Mobility Exam: Supine to Sit Level of Will: Contact guard Physical/Nonphysical Assist: Supervision, Verbal Cues, Minimal cues Assistive Device: Bed rails Transfers Transfer Exam: Sit to stand Level of Will: Contact guard Physical/Nonphysical Assist: Supervision, Verbal Cues, Minimal cues Assistive Device: Walker, rolling Transfer Exam: Stand to Sit Level of Will: Contact guard Physical/Nonphysical Assist: Supervision, Verbal Cues, Minimal cues Assistive Device: Walker, rolling Transfer Exam: Bed to Chair/Chair to Bed Level of Will: Contact guard Physical/Nonphysical Assist: Supervision, Verbal Cues, Minimal cues Type of Transfer: (Pt ambulated prior to returning to sit in bedside chair) Assistive Device: Walker, rolling Toilet Transfer Level of Will: Contact guard Physical/Nonphysical Assist: Supervision, Verbal Cues, [...] Xrays being done; patient tolerating well. * Krames OnFHIR - Claudia Moreira RN - 12/27/2024 11:50 [...] medicines unless your doctor approves. This includes jazz-lbk-ctyfiab medicines like aspirin, ibuprofen and Tylenol. ?? [...] a nutritional supplement such as Boost or Buena Instant Breakfast until your appetite returns to [...] prescription refill before your next appointment, call [phone]. ?? To check joint stability over time, you may have X-rays every five years. When should I call the doctor? Call [phone] right away if you have any of [...] of control over leg motion * Mai Cheema - Claudia Moreira RN - 12/27/2024 11:50 AM EDT Images from the original note were not included. 113 Post-Anesthesia and Postoperative Instructions ([place]) In order to have a fast and [...] Room or call the Emergency Department at [phone]. Smoking and its health risks ?? Smoking [...] help quitting smoking, call the [employer] [place]'s Quitline toll free at or ask your doctor for help. Weight Management ?? Weighing too much is not good for your health. Being overweight increases your risk of health conditions such as heart problems, high blood pressure, type 2 diabetes, and certain types of cancer. Being overweight can also increase your risk for osteoarthritis (fv-vyo-lv-swh-UTCB-cvi) (joint disease), sleep apnea (abnormal breathing at [...] risk of health problems. Ask your dietitian, evening or night nurse supervisor or doctor about a weight loss goal that is right for you. 06/03 * Op Note - Ruel Gomes MD - 12/27/2024 10:47 AM EDT Operative Note Date: 12/27/24 Location: [facility] OR Name: Juliane Ceballos, : 1965, SURGEON: Ruel Gomes M.D. CROZER OPERATOR #1: BECKY Spence CROZER OPERATOR #2: Denis Harris MD PREOPERATIVE DIAGNOSIS: Advanced [...] loosening, osteolysis, DVT, continued pain, iatrogenic fracture, PR, stroke, and . The patient completed preoperative [...] Spence who has operative credentials at the [facility]. Her assistance wasneeded for exposure, retraction, implantation and closure of the wound. I was present for the entire procedure. Submitted by: Ruel Gomes MD - 12/27/2024 Hip Approach: Direct anterior AJRR Anticipated Discharge or exclusion: Anticipate discharge home. * Progress Notes - Nancy Cui RN - 12/27/2024 8:54 AM EDT Case Management Adult Progress Note Juliane Ceballos 59 y.o. female CSN: [id number] Admission: 12/27/2024 6:20 AM Primary Problem: Unilateral primary osteoarthritis, right hip RW to be delivered to bedside today by [facility]. Nancy Cui RN * Discharge Summary - Douglas Ang MD - 12/27/2024 7:28 AM EDT Hospitalization Admit Date/Time: 12/27/2024 6:20 AM Admitting Attending: Ruel Gomes Discharge Date: 12/28/24 Discharge Attending Physician: Ruel Gomes MD PCP name and Address: Ruel Levi MD [address] / [place] [address] Referring provider name and address: System, Provider Not In, [address] [place] [id number] Chief Concern, Brief History of Present Illness, and Hospital Course Patient arrived to [facility] on 12/27/24 for their scheduled surgery. [...] Your Medications These medications were sent to [facility] [place] [address] [address] [place] [address] acetaminophen 500 MG tablet apixaban 2.5 MG [...] Center 01/18/2025 2:00 PM Tamica Orta PA [facility] 02/08/2025 2:30 PM Ruel Gomes MD [facility] Test Results Pending At Discharge Pending [...] discharge. Ann-Marie Ang MD PGY-1, Orthopaedic Surgery [facility] Cosigned by Ruel Gomes MD at 12/28/2024 [...] arthroplasty. Denis Harris MD Orthopedic Surgery PGY-2 [facility] Personal Pager: [phone] Orthopaedic Trauma Service Pager: [phone] Orthopaedic Recon/Spine/Foot and Ankle Service Pager: [phone] [1] Family History Problem Relation Name Age [...] 1 Application 1 Application Nasal Once Ruel Gmoes MD scopolamine (Transderm-Scop) patch 1 patch 1 [...] Description 02/28/2025 10:05 AM EDT Hospital Encounter [facility] S Operating Room [address] [place] [address] Ruel Gomes MD [address] [address] 02/28/2025 10:05 AM EDT - 02/28/2025 12:25 PM EDT Surgery [facility] Operating Room [address] [place] [address] Ruel Gomes MD [address] [address] ARTHROPLASTY, HIP, TOTAL, ANTERIOR APPROACH [51671 (CPT )] 03/15/2025 11:00 AM EDT Office Visit Medical [facility] [address] [facility], [address] [place] [address] Tamica Orta PA [address] [place] [address] 04/12/2025 11:20 AM EDT Office Visit Medical Office Building [facility] [address], [address] [place] [address] Ruel Gomes MD [address] [place] [address] Scheduled Procedures Name Priority Associated [...] AM EDT Unilateral primary osteoarthritis, right hip [place] TOTAL HIP ARTHROPLASTY 12/27/2024 10:06 AM EDT [...] Tad Lee MD on 12/27/2024 12:36 PM Ruel Gomes MD IMG XR PROCEDURES Final Resu lt * [place] Less than 1 Hour Intraoperative (12/27/2024 11:31 AM EDT) Narrative IMAGING - 12/27/2024 11:31 AM EDT Images were obtained for surgical purposes. See Ruel Gomes's surgical note in the patient's chart for the findings. Ruel Gomes MD IMG FLUOROSCOPY PROCEDURES F inal Result IMAGING * Surgical Pathology Exam (12/27/2024 10:57 AM EDT) Case Report Surgical Pathology Case: [id number] Authorizing Provider: Ruel Gomes MD Collected: 12/27/2024 1057 Ordering Location: [facility] Operating Room Received: 12/27/2024 1241 Pathologist: No [...] RIGHT HIP BONE Received in formalin labeled r [facility] hip bone , is an irregularly-sha ped [...] us Ruel Gomes MD LAB PATHOLOGY ORDERABLES Fin al Result [facility] [address] [place] [address] documented in this encounter Visit Diagnoses Diagnosis Unilateral primary osteoarthritis, right hip- Primary Arthritis of right hip Arthritis of right hip Unilateral primary osteoarthritis, right hip Arthritis of left hip documented [...] magnesium hydroxide bupivacaine-EPINEPHrine PF (Marcaine w/EPI) 0.5% -1:485937 injection As needed, Starting on Fri12/27/24 at 1057, Until Fri12/27/24 at 1156, Routine, Intraprocedure Given 12/27/2024 10:57 AM EDT 60 mL Right Upper Hip calcium-vitamin D 500-200 MG-UNIT per tablet 1 [...] or hydromorphone vancomycin (Vancocin) vial for injection As needed, Starting on Fri12/27/24 at 1057, Until Fri12/27/24 at 1156, Routine, Intraprocedure Given 12/27/2024 10:57 AM EDT 1 g vancomycin in NS (Vancocin) IVPB 1,250 mg [...] medication order) 0838 (Given - Provider: Tyler Jimenez, SIMA) polyethylene glycol (Miralax) packet 17 g 17 [...] 2100, Until Discontinued, Routine, Recovery(Phase II-Outpatient)/On Unit(Inpatient) 221 (Given - Provider: Helga Fuentes - Comment: [...] magnesium hydroxide bupivacaine-EPINEPHrine PF (Marcaine w/EPI) 0.5% -1:230220 injection (CANCELED) As needed, Starting on Fri12/27/24 [...] moderate pain, severe pain, Severe pain 5-8 4462 (Given - Provider: Paola Lancaster RN)2309 (Given [...] documented as of this encounter Care Teams Oil Separator Relationship Specialty Start Date End Date Ruel Levi MD [address] [place] [address] PCP - General 11/03/20 documented as of this encounter
--- OUTSIDE RECORDS SUMMARY | 2024-12-27 10:19 | XMS_ITS | Encounter Summary ---
Author Organization Healthcare Address [address] [place] [address] Care Team Providers Care Striper Name Role Phone Ruel Levi MD Primary Care Provider [phone] Reason for Visit * Auth/Cert (Routine) Specialty Diagnoses / Procedures Referred By Nigel yan Referred To Contact Diagnoses Unilateral primary osteoarthritis, right hip Unilateral primary osteoarthritis, right hip [M16.11] Procedures HI TOTAL HIP ARTHROPLASTY ARTHROPLASTY, HIP, TOTAL, ANTERIOR APPROACH Ruel Gomes MD [address] [facility] [address] [place] [address] Phone: tel: fax: [facility] Operating Room [address] [place] [address] Phone: tel: Referral ID Status Reason Start Date Expiration Date Visits Re quested Visits Authorized [id number] 1 1 Encounter Details Date Type Department Care Team (Late st Contact Info) Description 12/27/2024 10:19 AM EDT Anesthesia Event [facility] Operating Room [address] [place] [address] Santino Matos DO [address] [place] [address] Estrellita Lunsford Anesthesia Record Procedure Summary Procedure Name Responsible Anesthesiologist Anesthesia Start Time Anesthesia Stop Time ARTHROPLASTY, HIP, TOTAL, ANTERIOR APPROACH (Right: Hip) Santino Matos DO 12/27/24 1019 12/27/24 1202 Events Date Time Event Comment 12/27/2024 0757 1019 An Start The patient was reevaluated immediately before sedation and remains eligible for anesthesia plan. 1021 In Room 1021 An Start Data 1024 An Induction The patient was reevaluated immediately before moderate or deep sedation use and before anesthesia induction. 1028 An Intubation 1028 Anesthesia Ready 1047 Proc Start 1147 Proc Fin 1154 An Extubation 1156 an stop data 1156 Out of Room 1200 Handoff to Receiving I compl eted my handoff to the receiving clinician during which we: 1. Identified the patient 2. Identified the responsible provider 3. Reviewed the pertinent medical history 4. Discussed the surgical course 5. Reviewed intra-op anesthesia management and issues during anesthesia 6. Set expectations for post-procedure period 7. Allowed opportunity for questions and acknowledgement of understanding. 1202 An Stop Meds Name Total midazolam (Versed) injection 1 mg/mL 2 m g fentaNYL (Sublimaze) injection 50 mcg/mL 100 mcg lidocaine PF (Xylocaine-MPF) 2% 80 mg propofol (Diprivan) injection 10 mg/mL 2 00 mg rocuronium (ZeMuron) injection 10 mg/mL 80 mg HYDROmorphone PF (Dilaudid) injection 1 mg/mL 1 mg ePHEDrine injection prefilled syringe 5 mg/mL 15 mg ondansetron (Zofran) injection 2 mg/mL 4 mg sugammadex (Bridion) injection 100 mg/mL 200 mg ceFAZolin (Ancef) injection 2 g 2 g dexmedetomidine (Precedex) infusion in N aCl 4 mcg/mL 20 mcg tranexamic acid (Cyklokapron) IVPB 1,000 mg 2,000 mg lactated Ringer's infusion 1,050 mL * Agents Name O2 Sevoflurane Inspired Sevoflurane * Blood No blood administrations on file. Lines, Drains, and Airways Type Details Placement Removal Wound 12/27/24; 1053; Surg ical; Open Surg; Hip; Anterior, Right 12/27/24 1053 by Gwyn Sagastume Peripheral IV Placement Date: 01/14; Placement Time: 729; Catheter Size: 20 G; Orientation: Anterior, Left; Location: Forearm; Site Prep: Alcohol; Technique: Ultrasound guidance; Inserted by: Dr. Matos; Insertion Attempts: 4; Patient Tolerance: Tolerated well; Removal Date: 12/28/24; Removal Time: 1200; Removal Reason: Discharge 12/27/24 0730 by Asha Sandoval RN 12/28/24 1200 by Tyler Jimenez RN ETT Placement Date: 01/14; Placement Time: 1028 (created via procedure documentation); Mask Ventilation: 2; Technique: Direct laryngoscopy; Type: ETT - single; Single Lumen Tube Size: 7 mm; Cuffed: Yes; Laryngoscope: Ramirez; Blade Size: 3; Location: Oral; Grade View: Grade IIa; Insertion Attempts: 1; Placement Verification: Auscultation, Capnometry; Airway Comments: Atraumatic. No change to dentition. ; Placed by: Other (Comment); Removal Date: 12/27/24; Removal Time: 1154 12/27/24 1028 by Estrellita Lunsford 12/27/24 1154 by Estrellita Lunsford documented in this encounter Social History Tobacco [...] on file documented as of this encounter Functional Status * Calculated C-SSRS [...] Jimenez RN documented as of this encounter Miscellaneous Notes * Anesthesia Postprocedure Evaluation - Estrellita Lunsford - 12/27/2024 12:05 PM EDT Patient: Juliane Ceballos Anesthesia Type: general [facility] Anesthesia Exemption: Unknown Vitals Value Taken Time BP 102/55 12/27/24 12:00 Temp 36.8 ??C (98.2 ??F) 12/27/24 12:00 Pulse 88 12/27/24 12:04 Resp 14 12/27/24 12:04 SpO2 100 % 12/27/24 12:04 Vitals shown include unfiled device data. Anesthesia Post Evaluation Patient location during evaluation: PACU Patient participation: complete - patient cannot participate Level of consciousness: sedated Pain management: adequate (pain score 0-3) Airway patency: natural airway Cardiovascular status: acceptable and hemodynamically stable Respiratory status: acceptable, blow-by oxygen, oral airway, face mask and spontaneous ventilation Hydration status: acceptable Nausea/Vomiting: No No notable events documented. Cosigned by Omar Dee CRNA at 12/28/2024 12:26 PM EDT * Anesthesia Procedure Notes - Estrellita Lunsford - 12/27/2024 10:58 AM EDTAssociated Order(s): Airway Airway Date/Time: 12/27/2024 10:28 AM Reason: elective Airway not difficult General Information and Staff Patient location during procedure: OR Other anesthesia staff: Estrellita Lunsford Performed: Other Anesthesia Staff Patient Condition Indications for airway management: anesthesia Patient position: sniffing MILS maintained throughout Final Airway Details Final airway type: endotracheal airway Successful airway: ETT Cuffed: yes Successful intubation technique: direct laryngoscopy Adjuncts used in placement: intubating stylet Endotracheal tube insertion site: oral Blade: Ramirez Blade size: #3 ETT size (mm): 7.0 Cormack-Lehane Classification: grade IIa - partial view of glottis Placement verified by: chest auscultation and capnometry Measured from: lips Additional Comments Atraumatic. No change to dentition. Cosigned by Omar Dee CRNA at 12/28/2024 12:26 PM EDT * Anesthesia Procedure Notes - Santino Matos DO - 12/27/2024 8:03 AM EDT Associated Order(s): Peripheral IV Peripheral IV Date/Time: 12/27/2024 7:40 AM Inserted by: Santino Matos DO Placement Needle size: 20 G Location: forearm Local anesthetic: none Site prep: chlorhexidine Technique: ultrasound guided Attempts: 1 * Anesthesia Preprocedure Evaluation - Leo Henriquez DO - 12/27/2024 7:50 AM EDT Images from the original note were not included. Anesthesiologist: Santino Matos DO NON DESTRUCTIVE EVALUATION MANAGER: Omar Dee CRNA Patient: Juliane Ceballos HPI Juliane Ceballos is a 59 y.o. female with body mass index is 28.84 kg/m??. who presents with Unilateral primary osteoarthritis, right hip, now for ARTHROPLASTY, HIP, TOTAL, ANTERIOR APPROACH (Right) 59 F with PMHx or arthritis presenting for total hip arthroplasty. She has tolerated GA in the pastwithout apparent complications. She is NPO. All of her questions have been appropriately addressed and answered. She demonstrates understanding and is agreeable to the plan at this time. Procedure Information Date/Time: 12/27/24 0950 Procedure: ARTHROPLASTY, HIP, TOTAL, ANTERIOR APPROACH (Right: Hip) Location: [address] [place] [address] OR Surgeons: Ruel Gomes MD Relevant Problems Other (+) Arthritis of right hip ALLERGIES Allergies[1] NPO STATUS > 8 hours Past Medical History[2] AIRWAY HISTORY Airway Detailed Review Displaying the 20 most recent records Date Difficult Airway Blade Size ETT Size C-L Class Final Type Intubation Method 03/10/19 - - - - - - MEDICATIONS Outpatient Current Outpatient Medications Medication Instructions acetaminophen (TYLENOL) 1,000 mg, Every 6 hours PRN diazePAM (VALIUM) 5 mg, Nightly Diclofenac Sodium 1 g, Apply externally, Nightly ibuprofen 600 mg, Every 6 hours PRN Multiple Vitamin (Stress Formula) tablet 1 tablet, ZZ Daily RT naloxone (NARCAN) 4 mg, Nasal, As needed oxyCODONE (ROXICODONE) 5 mg, Oral, Every 6 hours PRN pregabalin (Lyrica) 50 MG capsule Take 1 capsule by mouth 2 times a day. Scheduled Current Scheduled Medications[3] PRNs Current PRN Medications[4] SURGICAL HX: Surgical History[5] SOCIAL HX: Social History[6] OBJECTIVE DATA LABS Lab Results Component Value Date WBC 4.95 12/14/2024 HGB 14.1 12/14/2024 HCT 44.3 12/14/2024 MCV 87 12/14/2024 PLT 301 12/14/2024 Lab Results Component Value Date CALCIUM 9.5 12/14/2024 BUN 11 12/14/2024 CREATININE 0.59 (L) 12/14/2024 BCR 19 12/14/2024 NA 142 12/14/2024 K 4.6 12/14/2024 CL 104 12/14/2024 CO2 26 12/14/2024 Type and Screen No results found for: ABO Lab Results Component Value Date HGBA1C 5.6 12/14/2024 Lab Results Component Value Date GLUCOSE 87 12/14/2024 ABG No results found for: PHART , MKS7DCY , PO2ART , SO2ART , BEART , YBK1VUC , HCTART , SODIUMART , POTASSIUMART , POCTCL , POCGLU , IONCALART , LACTATE No results found for: PH , PCO2 , PO2 , O2TQAYMQ , BASEEXC , HCTSYR , KSYR , CLSYR , GLUSYR , CAION , LACTATE ECHO No echocardiogram results found for the past 12 months PFTs No results found for: AFJ4MJU , ABE0TSAT , DBA4WSG , FVCPRED BP Readings from Last 5 Encounters: 12/27/24 137/60 12/14/24 122/79 10/26/24 123/86 Physical Exam Airway Mallampati: II Mouth opening: normal TM distance: >3 FB Neck ROM: limited Comments: s/p cervical fusion with limited ROM of neck. Cardiovascular Rhythm: regular Rate: normal Dental (+) upper dentures Pulmonary Breath sounds clear to auscultation Neurological Oriented: normal to time, normal to place and normal to person and oriented to person, place and time Skin Musculoskeletal Extremities Anesthesia Plan ASA 3 Plan was reviewed with: NON DESTRUCTIVE EVALUATION MANAGER and attending Anesthesia technique(s) discussed with the patient/family: general Anesthesia plan agreed upon was: general Anesthetic plan and risks discussed with patient. Use of blood products discussed with patient who consented to blood products. Anesthesia Evaluation ROS Anesthesia: Date of last anesthetic: 2019: Successful airway: ETT Cuffed: yes Successful intubation technique: direct laryngoscopy Endotracheal tube insertion site: oral Blade: Ramirez Blade size: 3 ETT size (mm): 7.0 Cormack-Lehane Classification: grade I - full view of glottis Placement verified by: chest auscultation and capnometry Cuff volume (mL): 5 Measured from: lips ETT/EBT to lips (cm): 20 Number of attempts at approach: 1 Most recent G.A 07/2024. history of previous anesthesia and history of delayed emergence. Does not have obstructive sleep apnea. Cardiovascular: Does not have angina, CAD, CHF, dysrhythmias, hyperlipidemia, pacemaker or past TN. no hypertension: Exercise tolerance is 2 flights of stairs. Cardio additional comments: Denies any active current cardiac complaints. Told many yrs ago she had a slight heart murmur not always audible. No recent ECHO's. . Respiratory: Does not have home oxygen. no asthma: no COPD: Has not had an upper respiratory infection in last 30 days. Has not had pneumonia in the last 30 days or COVID in the last 30 days. Neurological: no seizures: Did not have a cerebrovascular accident. Musculoskeletal: arthritis. Gastrointestinal: Does not have GERD.Does not have cirrhosis. GI/ additional comments: Hx gastric sleeve. 90 lbs wt loss. Genitourinary: Does not have renal disease. Hematological/Lymphatic: History of no DVT. History of no pulmonary embolism. Not in a hypercoagulable state. no history of chemotherapy no history of radiation Does not have MRSA or tuberculosis. Endocrine/Metabolic: does not have diabetes mellitus. Does not have thyroid disorder. [1] Allergies Allergen Reactions Eletriptan Other - please document in the comment field NUMBNESS -TINGLING ALL OVER [2] Past Medical History: Diagnosis Date Chronic back pain Delayed emergence from general anesthesia Murmur [3] acetaminophen, 1,000 mg, Oral, Once ceFAZolin, 2 g, Intravenous, Once dexamethasone, 8 mg, Intravenous, Once gabapentin, 300 mg, Oral, Once ketorolac, 15 mg, Intravenous, Once oxyCODONE, 5 mg, Oral, Once Povidone-Iodine, 1 Application, Nasal, Once scopolamine, 1 patch, Transdermal, Once traMADol, 50 mg, Oral, Once tranexamic acid, 1,000 mg, Intravenous, Once tranexamic acid, 1,000 mg, Intravenous, Once vancomycin, 15 mg/kg, Intravenous, Once [4] PRN medications: Insert peripheral IV AND Saline lock IV AND sodium chloride AND sodium chloride [5] Past Surgical History: Procedure Laterality Date CARPAL TUNNEL RELEASE Bilateral CERVICAL FUSION C4-5 FOOT SURGERY Left GASTRIC RESTRICTION SURGERY Sleeve HYSTERECTOMY LUMBAR FUSION L4-5, then L4-5 refused and down to S1 ORIF ANKLE FRACTURE OTHER SURGICAL HISTORY Bilateral breast reduction ROTATOR CUFF REPAIR Left X2 TUBAL LIGATION VERTEBROPLASTY [6] Social History Tobacco Use Smoking status: Never Passive exposure: Never Smokeless tobacco: Never Vaping Use Vaping status: Never Used Substance Use Topics Alcohol use: Never Drug use: Never Cosigned by Santino Matos DO at 12/27/2024 8:10 AM EDT Associated attestation - Santino Matos DO - 12/27/2024 8:10 AM EDT I agree with the findings and care plan documented in the preprocedure evaluation note. documented in this encounter Plan of Treatment Upcoming Encounters Date Type Department Care Team (Latest Contact Info) Description 02/28/2025 10:05 AM EDT Hospital Encounter [facility] Operating Room [address] [place] [address] Ruel Gomes MD [address] [facility] [address] [place] [address] 02/28/2025 10:05 AM EDT - 02/28/2025 12:25 PM EDT Surgery [facility] Operating Room [address] [place] [address] Ruel Gomes MD [address] [place] [id number] ARTHROPLASTY, HIP, TOTAL, ANTERIOR APPROACH [17823 (CPT )] 03/15/2025 11:00 AM EDT Office Visit [facility] [address], [address] [place] [address] Tamica Orta PA [address] [place] [address] 04/12/2025 11:20 AM EDT Office Visit [facility] [address], [address] [place] [address] Ruel Gomes MD [address] [place] [address] Scheduled Procedures Name Priority Associated Diagnoses Date/Ti me ARTHROPLASTY, HIP, TOTAL, ANTERIOR APPROACH Arthritis of left hip 02/28/2025 10:05 AM EDT documented as of this encounter Goals Goal Patient Goal Type Associated Problems Recent Progress Patient-Stated? Author Autogenerat ed Goal Care Plan Autogenerated Problem No Zohreh Kennedy documented as of this encounter Procedures Procedure Name Priority Date/Time Associated Diagnosis Comments PB ANESTHESIA PLACEHOLDER Routine 12/27/2024 10:28 AM EDT HI AN ELECTIVE ENDOTRACHEAL AIRWAY Routine 12/27/2024 10:28 AM EDT ANESTHESIA ULTRASOUND GUIDED Routine 12/27/2024 7:40 AM EDT documented in this encounter Results * HI AN ELECTIVE ENDOTRACHEAL AIRWAY, PB ANESTHESIA PLACEHOLDER (12/27/2024 10:28 AM EDT) Narrative Omar Dee CRNA - 12/27/2024 10:28 AM EDT Omar Dee CRNA 12/28/2024 12:26 PM Airway Date/Time: 12/27/2024 10:28 AM Reason: elective Airway not difficult General Information and Staff Patient location during procedure: OR Other anesthesia staff: Estrellita Lunsford Performed: Other Anesthesia Staff Patient Condition Indications for airway management: anesthesia Patient position: sniffing MILS maintained throughout Final Airway Details Final airway type: endotracheal airway Successful airway: ETT Cuffed: yes Successful intubation technique: direct laryngoscopy Adjuncts used in placement: intubating stylet Endotracheal tube insertion site: oral Blade: Ramirez Blade size: #3 ETT size (mm): 7.0 Cormack-Lehane Classification: grade IIa - partial view of glottis Placement verified by: chest auscultation and capnometry Measured from: lips Additional Comments Atraumatic. No change to dentition. us Santino Matos DO ANESTHESIA ORDERABLES Final Result * ANESTHESIA ULTRASOUND GUIDED (12/27/2024 7:40 AM EDT) Narrative Santino Matos DO - 12/27/2024 7:40 AM EDT Santino Matos DO 12/27/2024 8:04 AM Peripheral IV Date/Time: 12/27/2024 7:40 AM Inserted by: Santino Matos DO Placement Needle size: 20 G Location: forearm Local anesthetic: none Site prep: chlorhexidine Technique: ultrasound guided Attempts: 1 us Santino Matos DO ANESTHESIA ORDERABLES Final Result documented in this encounter Visit Diagnoses Not on filedocumented in this encounter Administered Medications Inactive Administered Medications - up to 3 most recent administrations Medication Order MAR Action Action Date Dose Rate Site ceFAZolin (Ancef) injection 2 g 2 g, Intravenous, Once, 1 dose, On Fri12/27/24 at 0730, Routine, Anesthesia Intraprocedure Given 12/27/2024 10:38 AM EDT 2 g dexmedetomidine in NS (Precedex) 4 mcg/mL infusion Intravenous, As needed, Starting on Fri12/27/24 at 1050, Until Fri12/27/24 at 1205, Routine Given 12/27/2024 11:54 AM EDT 4 mcg Given 12/27/2024 10:58 AM EDT 8 mcg Given 12/27/2024 10:50 AM EDT 8 mcg ePHEDrine Sulfate (Akovaz) injection Intravenous, As needed, Starting on Fri12/27/24 at 1106, Until Fri12/27/24 at 1205, Routine, Anesthesia Intraprocedure Given 12/27/2024 11:45 AM EDT 10 mg Given 12/27/2024 11:06 AM EDT 5 mg fentaNYL (Sublimaze) injection Intravenous, As needed, Starting on Fri12/27/24 at 1039, Until Fri12/27/24 at 1205, Routine, Anesthesia Intraprocedure Given 12/27/2024 10:39 AM EDT 50 mcg Given 12/27/2024 10:24 AM EDT 50 mcg HYDROmorphone PF (Dilaudid) injection Intravenous, As needed, Starting on Fri12/27/24 at 1113, Until Fri12/27/24 at 1205, Routine, Anesthesia Intraprocedure Given 12/27/2024 11:13 AM EDT 1 mg lactated Ringer's infusion Intravenous, Continuous PRN, Starting on Fri12/27/24 at 1019, Until Fri12/27/24 at 1205, Routine New Bag 12/27/2024 11:50 AM EDT New Bag 12/27/2024 10:19 AM EDT lidocaine PF (Xylocaine) 2 % injection Intravenous, As needed, Starting on Fri12/27/24 at 1028, Until Fri12/27/24 at 1205, Routine, Anesthesia Intraprocedure Given 12/27/2024 10:24 AM EDT 80 mg midazolam (Versed) injection Intravenous, As needed, Starting on Fri12/27/24 at 1019, Until Fri12/27/24 at 1205, Routine, Anesthesia Intraprocedure Given 12/27/2024 10:19 AM EDT 2 mg ondansetron (Zofran) injection Intravenous, As needed, Starting on Fri12/27/24 at 1139, Until Fri12/27/24 at 1205, Routine, Anesthesia Intraprocedure Given 12/27/2024 11:39 AM EDT 4 mg propofol (Diprivan) injection Intravenous, As needed, Starting on Fri12/27/24 at 1028, Until Fri12/27/24 at 1205, Routine, Anesthesia Intraprocedure Given 12/27/2024 10:24 AM EDT 200 mg rocuronium (ZeMuron) injection Intravenous, As needed, Starting on Fri12/27/24 at 1024, Until Fri12/27/24 at 1205, Routine, Anesthesia Intraprocedure Given 12/27/2024 11:05 AM EDT 30 mg Given 12/27/2024 10:24 AM EDT 50 mg sugammadex (Bridion) 100 MG/ML injection Intravenous, As needed, Starting on Fri12/27/24 at 1151, Until Fri12/27/24 at 1205, Routine, Anesthesia Intraprocedure Given 12/27/2024 11:51 AM EDT 200 mg tranexamic acid (Cyklokapron) IVPB 1,000 mg 1,000 mg, Intravenous, Once, 1 dose, On Fri12/27/24 at 0730, Routine, Holding - Preprocedure Given 12/27/2024 11:39 AM EDT 1,000 mg Given 12/27/2024 10:30 AM EDT 1,000 mg documented in this encounter Additional Health Concerns Active Problems Noted Date Diagnosed Date Autogenerated Problem 10/27/2024 Assessment Noted Time A fall risk assessment has been complete d for the patient 10/26/2024 1:35 PM EDT A Body Mass Index follow-up plan has been documented for the patient 12/28/2024 11:37 AM EDT documented as of this encounter Care Teams Striper Relationship Specialty Start Date End Date Ruel Levi MD [address] [place] [address] PCP - General 11/03/20 documented as of this encounter
--- OUTSIDE RECORDS SUMMARY | 2025-01-18 14:00 | XMS_ITS | Encounter Summary ---
Author Organization Healthcare Address [address] [id number] Care Team Providers Care Cut Off Saw Operator Name Role Phone Ruel Levi MD Primary Care Provider [phone] Reason for Visit * Reason Comments Post-op Encounter Details Date Type Department Care Team ([facility] st Contact Info) Description 01/18/2025 2:00 PM EDT Office Visit Medical Office Building Surgery [facility] [address], [address] [place] [address] Tamica Orta PA [address] [place] [address] S/P total right hip arthroplasty (Primary Dx) Social History Tobacco Use Types Packs/Day Years Used Date Smoking Tobacco: Never Passive Smoke Exposure: Never Smokeless Tobacco: Never Tobacco Cessation:Counseling Given: Not Answered Alcohol Use Standard Drinks/Week Comments Never 0 [...] Sign Reading Time Taken Comments Blood Pressure 105/69 01/18/2025 1:47 PM EDT Pulse 72 01/18/2025 1:47 PM EDT Temperature - - Respiratory Rate - - Oxygen Saturation 95% 01/18/2025 1:47 PM EDT Inhaled Oxygen Concentration - - Weight 76.2 kg (168 lb) 01/18/2025 1:47 PM EDT Height - - Body Mass Index 28.84 12/27/2024 6:39 AM EDT documented in this encounter Miscellaneous Notes * Progress Notes - Tamica Orta PA - 01/18/2025 2:00 PM EDT ID: Patient is a 59 year old female who presents for 2 week post-operative follow up s/p R anteriorTHA with Dr. Gomes. Subjective: Patient reports she is overall doing well and is pleased with her result. Endorses compliance with physical therapy as well as Eliquis for DVT prophylaxis. Pain is manageable with currentmedication regimen, does not request medication refill at this time. Objective: Right hip- Incision well approximated No warmth, erythema, or drainage from operative site Able to tolerate gentle ROM Ambulating without the use of an assistive device. Neurovascular intact distally No evidence of DVT Assessment/plan: S/P R BRANDON- Prineo removed by patient prior to visit. Advised patient to continue physical therapy as well as DVT prophylaxis. Educated patient on signs of infection including warmth, erythema, or foul smelling drainage from operative site. Advised to not soak in any pools, hot tubs or bathtubs at this time. She will return to clinic in 4 weeks with radiographs unless sooner indicated. documented in this encounter Plan of Treatment Upcoming Encounters Date Type Department Care Team (Latest Contact Info) Description 02/28/2025 10:05 AM EDT Hospital Encounter [facility] S Operating Room [address] [place] [address] Ruel Gomes MD [address] [address] 02/28/2025 10:05 AM EDT - 02/28/2025 12:25 PM EDT Surgery [facility] Operating Room [address] [place] [address] Ruel Gomes MD [address] [address] ARTHROPLASTY, HIP, TOTAL, ANTERIOR APPROACH [84678 (CPT )] 03/15/2025 11:00 AM EDT Office Visit Medical Office Building Surgery [facility] [address], [address] [place] [address] Tamica Orta PA [address] [place] [address] 04/12/2025 11:20 AM EDT Office Visit Medical Office Building [facility] [address], [address] [place] [address] Ruel Gomes MD [address] [place] [address] Scheduled Procedures Name Priority Associated Diagnoses Date/Ti me ARTHROPLASTY, HIP, TOTAL, ANTERIOR APPROACH Arthritis of left hip 02/28/2025 10:05 AM EDT documented as of this encounter Goals Goal Patient Goal Type Associated Problems Recent Progress Patient-Stated? Author Autogenerat ed Goal Care Plan Autogenerated Problem No Zohreh Kennedy documented as of this encounter Results * XR Pelvis 1 or 2 Views (02/08/2025 2:12 PM EDT) Anatomical Region Laterality Modality Body, Pelvis Digital Radiogra phy Impressions 02/08/2025 2:34 PM EDT Right noncemented total hip arthroplasty without complication. CRITICAL RESULT: No. COMMUNICATION: Per this written report. Drafted by Tad Lee MD on 02/08/2025 2:33 PM Final report signed by Tad Lee MD on 02/08/2025 2:34 PM Narrative 02/08/2025 2:34 PM EDT CLINICAL INDICATION: post op TECHNIQUE: XR PELVIS 1 OR 2 VIEWS COMPARISON: December 27, 2024 FINDINGS: AP view of the pelvis shows right noncemented total hip arthroplasty without complication. Superior lateral left hip joint space narrowing with osteophyte formation. Pubic symphysis and sacroiliac joints are normal. Procedure Note Tad Lee MD - 02/08/2025 CLINICAL INDICATION: post op TECHNIQUE: XR PELVIS 1 OR 2 VIEWS COMPARISON: December 27, 2024 FINDINGS: AP view of the pelvis shows right noncemented total hip arthroplastywithout complication. Superior lateral left hip joint space narrowing withosteophyte formation. Pubic symphysis and sacroiliac joints are normal. IMPRESSION: Right noncemented total hip arthroplasty without complication. CRITICAL RESULT: No. COMMUNICATION: Per this written report. Drafted by Tad Lee MD on 02/08/2025 2:33 PM Final report signed by Tad Lee MD on 02/08/2025 2:34 PM Tamica Cedeñozljak BECKY IMG XR PROCEDURES Final Resul t documented in this encounter Visit Diagnoses Diagnosis S/P total right hip arthroplasty- Primary S/P total right hip arthroplasty Arthritis of left hip documented in this encounter Additional Health Concerns Active Problems Noted Date Diagnosed Date Autogenerated Problem 10/27/2024 Assessment Noted Time A fall risk assessment has been complete d for the patient 01/18/2025 1:47 PM EDT A Body Mass Index follow-up plan has been documented for the patient 01/18/2025 2:24 PM EDT documented as of this encounter Care Teams Cut Off Saw Operator Relationship Specialty Start Date End Date Ruel Levi MD [address] [place] [address] PCP - General 11/03/20 documented as of this encounter
--- OUTSIDE RECORDS SUMMARY | 2025-02-08 14:04 | XMS_ITS | Encounter Summary ---
Author Organization Healthcare Address [address] [place] [address] Care Team Providers Care Sanitation Worker Cleaning Machinery Name Role Phone Ruel Levi MD Primary Care Provider [phone] Encounter Details Date Type Department Care Team (Latest Contact Info) Description 02/08/2025 2:04 PM EDT - 02/08/2025 11:59 PM EDT Hospital Encounter Medical Office Building Radiology [facility] [place] [address] S/P total right hip arthroplasty Discharge Disposition: Home or Self Care Social [...] on file documented as of this encounter Medications at Time of Discharge acetaminophen (Tylenol) 500 MG tablet Take 2 tablets by mouth every 8 hours. 100 tablet 12/27/2024 apixaban (Eliquis) 2.5 MG tablet Take 1 tablet by mouth 2 times a day. For 4 weeks post-op for blood clot prevention 56 tablet 12/27/2024 diazePAM (Valium) 5 MG tablet Take 1 tablet by mouth nightly. Diclofenac Sodium 3 % gel Apply 1 g topically nightly. gabapentin (Neurontin) 100 MG capsule Take 1 capsule by mouth 3 times a day. 42 capsule 01/11/2025 ibuprofen 200 MG tablet Take 3 tablets [...] other nostril if symptoms continue 1 each 12/27/2024 ondansetron ODT (Zofran-ODT) 4 MG disintegrating tablet Dissolve 1 tablet on the tongue every 8 hours as needed for nausea or vomiting. 20 tablet 12/28/2024 oxyCODONE (Roxicodone) 5 MG immediate release tablet Take 1 tablet by mouth every 6 hours as needed for severe pain. 30 tablet 12/27/2024 pantoprazole (Protonix) 40 MG EC tablet pregabalin (Lyrica) 50 MG capsule Take 1 capsule by mouth daily. 10/22/2024 traMADol (Ultram) 50 MG tablet Take 1 tablet by mouth every 4 hours as needed for severe pain. 60 tablet 12/27/2024 documented as of this encounter Plan of Treatment Upcoming Encounters Date Type Department Care Team (Latest Contact Info) Description 02/28/2025 10:05 AM EDT Hospital Encounter [facility] Operating Room [address] [place] [address] Ruel Gomes MD [address] [address] 02/28/2025 10:05 AM EDT - 02/28/2025 12:25 PM EDT Surgery [facility] Operating Room [address] [place] [address] Ruel Gomes MD [address] [address] ARTHROPLASTY, HIP, TOTAL, ANTERIOR APPROACH [20160 (CPT )] 03/15/2025 11:00 AM EDT Office Visit Medical Office Building Surgery [facility] [address] , [address] [place] [address] Tamica Orta PA [address] [place] [address] 04/12/2025 11:20 AM EDT Office Visit Medical Office Building [facility] [address] [place] [address] Ruel Gomes MD [address] [place] [address] Scheduled Procedures Name Priority Associated Diagnoses Date/Ti me ARTHROPLASTY, HIP, TOTAL, ANTERIOR APPROACH Arthritis of left hip 02/28/2025 10:05 AM EDT documented as of this encounter Goals Goal Patient Goal Type Associated Problems Recent Progress Patient-Stated? Author Autogenerat ed Goal Care Plan Autogenerated Problem No Zohreh Kennedy Autogenerat ed Goal Care Plan Autogenerated Problem No Zohreh Kennedy documented as of this encounter Procedures Procedure Name Priority Date/Time Associated Diagnosis Comments XR PELVIS 1 OR 2 VIEWS Routine 02/08/2025 2:12 PM EDT S/P total right hip arthroplasty documented in this encounter Results * XR Pelvis 1 [...] Visit Diagnoses Diagnosis S/P total right hip arthroplasty Arthritis of left hip- Primary Arthritis of left hip documented in this encounter Additional Health Concerns Active Problems Noted Date Diagnosed Date Autogenerated Problem 10/27/2024 Autogenerated Problem 02/08/2025 Assessment Noted Time A fall risk assessment has been complete d for the patient 02/08/2025 2:20 PM EDT A Body Mass Index follow-up plan has been documented for the patient 02/08/2025 3:07 PM EDT documented as of this encounter Care Teams Sanitation Worker Cleaning Machinery Relationship Specialty Start Date End Date Ruel Levi MD [address] [place] [address] PCP - General 11/03/20 documented as of this encounter
--- OUTSIDE RECORDS SUMMARY | 2025-02-08 14:30 | XMS_ITS | Encounter Summary ---
Author Organization Healthcare Address [address] [place] [address] Care Team Providers Care Tube Wrapper Name Role Phone Ruel Levi MD Primary Care Provider [phone] Reason for Visit * Reason Comments Post-op Encounter Details Date Type Department Care Team ([facility] st Contact Info) Description 02/08/2025 2:30 PM EDT Office Visit Medical Office Building Surgery [facility] [address] [facility], [address] [place] [address] Ruel Gomes MD [address] [place] [address] S/P total right hip arthroplasty (Primary Dx); Arthritis of left hip; Hip pain, left Social History Tobacco Use Types Packs/Day Years [...] Sign Reading Time Taken Comments Blood Pressure 123/76 02/08/2025 2:20 PM EDT Pulse 70 02/08/2025 2:20 PM EDT Temperature - - Respiratory Rate - - Oxygen Saturation 99% 02/08/2025 2:20 PM EDT Inhaled Oxygen Concentration - - Weight 76 kg (167 lb 8.8 oz) 02/08/2025 2:20 PM EDT Height 162.6 cm (5' 4 ) 02/08/2025 2:20 PM EDT Body Mass Index 28.76 02/08/2025 2:20 PM EDT documented in this encounter Miscellaneous Notes * Progress Notes - Ruel Gomes MD - 02/08/2025 2:30 PM EDT Subjective: Juliane Ceballos is a 59 y.o. y/o female who comes in today for right total hip arthroplasty and left hip pain. Patient reports the right hip is doing well. Overall pleased with the results. She is now having similar issues with the left hip where it is locking and catching. She says the pain is moderate in intensity. It is worse with activity. She has already worked with physical therapy on the left hip when she has been trying to recover on the right. She is having limitations with decreasing amounts of movement in his interested potentially in hip arthroplasty on the left. Past Medical History[1] Surgical History[2] Social History Socioeconomic History Marital status: Spouse name: Not on file Number of children: Not on file Years of education: Not on file Highest education level: Not on file Occupational History Not on file Tobacco Use Smoking status: Never Passive exposure: Never Smokeless tobacco: Never Vaping Use Vaping status: Never Used Substance and Sexual Activity Alcohol use: Never Drug use: Never Sexual activity: Defer Other Topics Concern Not on file Social History Narrative Not on file Social Drivers of Health Financial Resource Strain: Not on file Food Insecurity: Not on file Transportation Needs: Not on file Physical Activity: Not on file Stress: Not on file Social Connections: Unknown (03/31/2023) Received from [facility] Family and Community Support Help with Day-to-Day Activities: Not on file Lonely or Isolated: Not on file Intimate Partner Violence: Unknown (03/31/2023) Received from [facility] Abuse Screen Unsafe at Home or Work/School: Not on file Feels Threatened by Someone?: Not on file Does Anyone Keep You from Contacting Others or Doint Things Outside the Home?: Not on file Physical Sign of Abuse Present: Not on file Housing Stability: Unknown (03/31/2023) Received from [facility] Housing Stability Current Living Arrangements: Not on file Potentially Unsafe Housing Conditions: Not on file Allergies[3] Current Medications[4] I have reviewed and updated the patient's past medical history, past surgical history, social history, and family history. This is located both in the patient's note and their intake form that has been scanned into the medical record for today's visit. 14 point review of systems was reviewed per signed intake sheet and is otherwise negative except asnoted above. Objective: Body mass index is 28.76 kg/m??. 12/27/2024 7:07 PM 12/27/2024 10:26 PM 12/28/2024 2:58 AM 12/28/2024 7:31 AM 12/28/2024 10:57 AM 01/18/2025 1:47 PM 02/08/2025 2:20 PM Vitals Systolic 110 116 97 116 111 105 123 Diastolic 69 70 61 74 60 69 76 Heart Rate 98 90 83 77 82 72 70 Temp 36.5 C 36.7 C 36.8 C 36.6 C 36.5 C Resp 16 16 16 Height (cm) 162.6 cm Weight (kg) 76.204 kg 76 kg BMI 28.84 kg/m2 28.76 kg/m2 BSA (m2) 1.85 m2 1.85 m2 Visit Report Report Report Right hip Incisions well healed No pain with range of motion. Neurovascular intact distally Hip: Trendelenburg: Positive Limp: Positive Leg Lengths: Equal ROM: HF 100, IRF 0 Abduction strength level: 5/5 Pain location: Anterior My independent interpretation of radiographic testing shows: bone on bone articulation with loss ofjoint space, subchondral sclerosis, cystic changes. Right hip implants are in good position with nosigns of any loosening or subsidence. XR Pelvis 1 or 2 Views Result Date: 02/08/2025 Right noncemented total hip arthroplasty without complication. CRITICAL RESULT: No. COMMUNICATION: Per this written report. Drafted by Tad Lee MD on 02/08/2025 2:33 PM Final report signed by Tad Lee MD on 02/08/2025 2:34 PM Notes reviewed: outside physician Results of tests reviewed: previous radiographs Assessment and plan: S/P total right hip arthroplasty Arthritis of left hip Hip pain, left Orders Placed This Encounter CBC W/O Differential Basic metabolic panel Albumin, Plasma Nicotine Cotinine Metabolite Case Request Operating Room: ARTHROPLASTY, HIP, TOTAL, ANTERIOR APPROACH No follow-ups on file. Patient has evidence of chronic end-stage arthritis of the left, hip with exacerbation. Based on discussion with the patient as well as review of the patient???s previous medical records and notes, the patient has now failed previous nonoperative treatment with activity modification, anti-inflammatories, corticosteroid injections, and assistive devices. Upon personal review of the preoperative imaging, the radiographs demonstrate severe joint space narrowing with subchondral sclerosis and reactive osteophytes. Risks complications and benefits of the procedure have now been discussed preoperatively to include but not limited to infection, bleeding, anesthesia risk, sciatic nerve palsy, instab ility, leg length discrepancy, aseptic loosening, osteolysis, DVT, continued pain, iatrogenic fracture, VA, stroke, and . The patient is felt to be an appropriate candidate for total hip arthroplasty. The patient will require preoperative medical clearance joint arthroplasty education. Risk stratification has demonstrated patient will be treated with chemical and mechanical DVT prophylaxis postoperatively. We will have the patient meet with the lifter today to try and find a date and time for the surgery. We will also get new xrays today to evaluate for the spinopelvic mobility to aid in determining proper acetabular cup position. We have also ordered preoperative laboratory workup to include CBC, BMP, Vitamin D Level, and Albumin to help with medical optimization prior to surgery. For the right hip she can otherwise be activity as tolerated. Rx management per plan. [1] Past Medical History: Diagnosis Date Chronic back pain Delayed emergence from general anesthesia Murmur [2] Past Surgical History: Procedure Laterality Date CARPAL TUNNEL RELEASE Bilateral CERVICAL FUSION C4-5 FOOT SURGERY Left GASTRIC RESTRICTION SURGERY Sleeve HYSTERECTOMY LUMBAR FUSION L4-5, then L4-5 refused and down to S1 ORIF ANKLE FRACTURE OTHER SURGICAL HISTORY Bilateral breast reduction ROTATOR CUFF REPAIR Left X2 TUBAL LIGATION VERTEBROPLASTY [3] Allergies Allergen Reactions Eletriptan Other - please document in the comment field NUMBNESS -TINGLING ALL OVER Nsaids Other - please document in the comment field Contradicted with patient's hx. of gastric sleeve surgery. [4] Current Outpatient Medications Medication Sig Dispense Refill apixaban (Eliquis) 2.5 MG tablet Take 1 tablet by mouth 2 times a day. For 4 weeks post-op for blood clot prevention 56 tablet 0 diazePAM (Valium) 5 MG tablet Take 1 tablet by mouth nightly. Diclofenac Sodium 3 % gel Apply 1 g topically nightly. gabapentin (Neurontin) 100 MG capsule Take 1 capsule by mouth 3 times a day. 42 capsule 0 [Paused] ibuprofen 200 MG tablet Take 3 tablets by mouth every 6 hours as needed for mild pain. Multiple Vitamin (Stress Formula) tablet Take 1 tablet by mouth 1 time each day. ondansetron ODT (Zofran-ODT) 4 MG disintegrating tablet Dissolve 1 tablet on the tongue every 8 hours as needed for nausea or vomiting. 20 tablet 0 pregabalin (Lyrica) 50 MG capsule Take 1 capsule by mouth 2 times a day. acetaminophen (Tylenol) 500 MG tablet Take 2 tablets by mouth every 8 hours. (Patient not taking: Reported on 02/08/2025) 100 tablet 0 naloxone (Narcan) 4 mg/0.1 mL nasal spray 1. Give 1 spray in nostril for no/slow breathing or cannot wake after opioid use 2. Call 911 3. Repeat in other nostril if symptoms continue (Patient not takin. Give 1 spray in nostril for no/slow breathing or cannot wake after opioid use 2. Call 911 3.Repeat in other nostril if symptoms continue Reported on 02/08/2025) 1 each 0 oxyCODONE (Roxicodone) 5 MG immediate release tablet Take 1 tablet by mouth every 6 hours as neededfor severe pain. (Patient not taking: Reported on 02/08/2025) 30 tablet 0 traMADol (Ultram) 50 MG tablet Take 1 tablet by mouth every 4 hours as needed for severe pain. (Patient not taking: Reported on 02/08/2025) 60 tablet 0 No current facility-administered medications for this visit. * Progress Notes - Beronica Pham RN - 02/08/2025 2:30 PM EDT Patient was provided with Total Joint Education Packet. Patient was educated using information provided in packet. Patient instructed to schedule PT appointment 4-7 days after surgery date and to schedule prior to having procedure. All questions answered. Contact information for Joint Replacement Nu rse given for patient to call should any questions arise before or after surgery. Pt then met with lifter to arrange surgery and Joint Replacement Class date. Reviewed patients allergies, medications, medical and surgical history, and pharmacy verified. Instructed patient to stop NSAIDS, ASA, and OTC vitamins & supplements 1 week prior to procedure. Instructed to ensure any hormone replacement, if taken, is stopped 1 month prior to surgery. Also any dermatological procedures or dental work need to be performed 1 month prior to procedure. Patient instructed to review educational material and write down any questions or concerns in the notes section and bring the packet to the hospital and all appointments. Patient stated understanding. Prefers SDD. Does the clinical care team anticipate the patient's continued opioid usage until surgery results in the patient having been taking opioid for at least 90 days by the time of their procedure?: No documented in this encounter Plan of Treatment Upcoming Encounters Date Type Department Care Team (Latest Contact Info) Description 02/28/2025 10:05 AM EDT Hospital Encounter [facility] Operating Room [address] [place] [address] Ruel Gomes MD [address] [place] [address] 02/28/2025 10:05 AM EDT - 02/28/2025 12:25 PM EDT Surgery [facility] Operating Room [address] [place] [address] Ruel Gomes MD [address] [place] [address] ARTHROPLASTY, HIP, TOTAL, ANTERIOR APPROACH [71185 (CPT )] 03/15/2025 11:00 AM EDT Office Visit Medical Office Building Surgery [facility] [address], [address] [place] [address] Tamica Orta PA [address] [place] [address] 04/12/2025 11:20 AM EDT Office Visit Medical Office Building Surgery [facility] [address], [address] [place] [address] Ruel Gomes MD [address] [place] [address] Scheduled Orders Name Type Priority Associated Diagnoses Orde r Schedule CBC W/O Differential Lab Routine Arthritis of left hip Hip pain, left 1 Occurrences starting 02/08/2025 until 02/08/2026 Basic metabolic panel Lab Routine Arthritis of left hip Hip pain, left 1 Occurrences starting 02/08/2025 until 02/08/2026 Albumin, Plasma Lab Routine Arthritis of left hip Hip pain, left 1 Occurrences starting 02/08/2025 until 02/08/2026 Nicotine Cotinine Metabolite Lab Routine Arthritis of left hip Hip pain, left 1 Occurrences starting 02/08/2025 until 02/08/2026 Scheduled Procedures Name Priority Associated Diagnoses Date/Ti me ARTHROPLASTY, HIP, TOTAL, ANTERIOR APPROACH Arthritis of left hip 02/28/2025 10:05 AM EDT documented as of this encounter Goals Goal Patient Goal Type Associated Problems Recent Progress Patient-Stated? Author Autogenerat ed Goal Care Plan Autogenerated Problem No Zohreh Kennedy Autogenerat ed Goal Care Plan Autogenerated Problem No Zohreh Kennedy documented as of this encounter Visit Diagnoses Diagnosis S/P total right hip arthroplasty- Primary Arthritis of left hip Hip pain, left Pain in joint, pelvic region and thigh Arthritis of left hip- Primary Arthritis of [...] documented as of this encounter Care Teams Tube Wrapper Relationship Specialty Start Date End Date Ruel Levi MD [address] [place] [address] PCP - General 11/03/20 documented as of this encounter
--- OUTSIDE RECORDS SUMMARY | 2025-02-17 13:22 | XMS_ITS | Clinical Summary ---
Author Organization [facility] Address [address] [place] [address] Care Team Providers Care Computer Security Specialist Name Role Phone Ruel Levi MD Primary Care Provider + [phone] Allergies Active Allergy Reactions Criticality Noted Date Comments Eletriptan Other - please docum ent in the comment field High 03/09/2019 NUMBNESS -TINGLING ALL OVER Nsaids Other - please docum ent in the comment field Low 12/27/2024 Contradicted with patient's hx. of gastric sleeve surgery. Medications diazePAM (Valium) 5 MG tablet Take 1 tablet by mouth nightly. Active Multiple Vitamin (Stress Formula) tablet Take 1 tablet by mouth 1 time each day. Active pregabalin (Lyrica) 50 MG capsule Take 1 capsule by mouth daily. 10/23/19 Active Diclofenac Sodium 3 % gel Apply 1 g topically nightly. Active ibuprofen 200 MG tablet Take 3 tablets by mouth every 6 hours as needed for mild pain. Active oxyCODONE (Roxicodone) 5 MG immediate release tablet Take 1 tablet by mouth every 6 hours as needed for severe pain. 30 tablet 12/28/19 25 Active Additional Information Patient not taking.Reported on 02/16/2025 traMADol (Ultram) 50 MG tablet Take 1 tablet by mouth every 4 hours as needed for severe pain. 60 tablet 12/28/19 25 Active Additional Information Patient not taking.Reported on 02/16/2025 apixaban (Eliquis) 2.5 MG tablet Take 1 tablet by mouth 2 times a day. For 4 weeks post-op for blood clot prevention 56 tablet 12/28/19 25 Active Additional Information Patient not taking.Reported on 02/16/2025 naloxone (Narcan) 4 mg/0.1 mL nasal spray 1. Give 1 spray in nostril for no/slow breathing or cannot wake after opioid use 2. Call 911 3. Repeat in other nostril if symptoms continue 1 each 12/28/19 Active Additional Information Patient not taking.Reported on 02/16/2025 acetaminophen (Tylenol) 500 MG tablet Take 2 tablets by mouth every 8 hours. 100 tablet 12/28/19 Active ondansetron ODT (Zofran-ODT) 4 MG disintegrating tablet Dissolve 1 tablet on the tongue every 8 hours as needed for nausea or vomiting. 20 tablet 12/29/19 Active gabapentin (Neurontin) 100 MG capsule Take 1 capsule by mouth 3 times a day. 42 capsule 01/12/20 Active Additional Information Patient not taking.Reported on 02/16/2025 pantoprazole (Protonix) 40 MG EC tablet Active docusate sodium (Colace) 250 MG capsule Take 1 capsule by mouth 2 times a day. To prevent constipation while taking pain medications 60 capsule 12/28/19 25 025 Additional Information Patient not taking.Reported on 02/08/2025 omeprazole (PriLOSEC) [address] capsule Take 1 capsule by mouth daily for 28 days. Do not crush or chew. 28 capsule 12/28/19 25 025 Active Problems Problem Noted Date Diagnosed Date Arthritis of left hip 02/08/2025 Primary osteoarthritis of right hip 12/28/2024 Arthritis of right hip 12/27/2024 Resolved Problems Problem Noted Date Diagnosed Date Resolved Date Unilateral primary osteoarthritis, right hip 5 12/27/2024 Encounters Date Type Department Care Team Description 02/15/2025 Orders Only Medical Office Building [facility] [address] , [address] [place] [address] Ruel Gomes MD Arthritis of left hip (Primary Dx) 02/08/2025 2:30 PM EDT Office Visit Medical Office Building [facility] [address] , [address] [place] [address] Ruel Gomes MD S/P total right hip arthroplasty (Primary Dx); Arthritis of left hip; Hip pain, left 02/08/2025 2:04 PM EDT - 02/08/2025 11:59 PM EDT Hospital Encounter Medical Office Building Radiology [address] [place] [address] S/P total right hip arthroplasty Discharge Disposition: Home or Self Care 02/08/2025 Travel 01/18/2025 2:00 PM EDT Office Visit Medical Office Building Surgery [facility] [address] [facility], [address] [place] [address] Tamica Orta PA S/P total right hip arthroplasty (Primary Dx) 01/18/2025 Travel 01/11/2025 Telephone Medical Office Building Surgery [facility] [address] [facility], [address] [place] [address] Ruel Gomes MD HCN - Patient Message 01/11/2025 Refill Medical Office Building Surgery [facility] [address] [facility], [address] [place] [address] Ruel Gomes MD 12/29/2024 Orders Only Medical Office Building Surgery Spine & [facility] [address] [facility], [address] [place] [address] Ruel Gomes MD 12/29/2024 Telephone Medical Office Building Surgery [facility] [address] [facility], [address] [place] [address] Ruel Gomes MD HCN - Patient Message 12/27/2024 10:19 AM EDT Anesthesia Event [facility] Operating Room [address] [place] [address] Santino Matos DO Schoenbachler, Yanelys D 12/27/2024 9:50 AM EDT - 12/27/2024 12:10 PM EDT Surgery [facility] Operating Room [address] [place] [address] Ruel Gomes MD ARTHROPLASTY, HIP, TOTAL, ANTERIOR APPROACH [15865 (CPT )] 12/27/2024 6:20 AM EDT - 12/28/2024 12:59 PM EDT Hospital Encounter [facility] Inpatient [address] [place] [address] Ruel Gomes MD Arthritis of right hip (Primary Dx); Unilateral primary osteoarthritis, right hip Discharge Disposition: Home or Self Care 12/27/2024 Travel 12/14/2024 2:00 PM EDT Pre-Admission Testing [facility] Anesthesia [address] [place] [address] Preop examination (Primary Dx) 12/14/2024 Travel 11/22/2024 Orders Only Medical Office Building Surgery Sp[facility] [address] [facility], [address] [place] [address] Ruel Gomes MD Status post total replacement of right hip (Primary Dx) from Last 3 Months Family History Medical History Relation Name Comments Anesthesia problems Neg Hx Malig Hyperthermia Neg Hx Social History Tobacco Use Types Packs/Day Years [...] on file Sexual Orientation Not on file Last Filed Vital Signs Vital Sign Reading Time Taken Comments Blood Pressure 123/76 02/08/2025 2:20 PM EDT Pulse 70 02/08/2025 2:20 PM EDT Temperature 36.5 C (97.7 F) 12/28/2024 10:57 AM EDT Respiratory Rate 16 12/28/2024 2:58 AM EDT Oxygen Saturation 99% 02/08/2025 2:20 PM EDT Inhaled Oxygen Concentration - - Weight 76 kg (167 lb 8.8 oz) 02/08/2025 2:20 PM EDT Height 162.6 cm (5' 4 ) 02/08/2025 2:20 PM EDT Body Mass Index 28.76 02/08/2025 2:20 PM EDT Plan of Treatment Upcoming Encounters Date Type Department Care Team (Latest Contact Info) Description 02/28/2025 10:05 AM EDT Hospital Encounter [facility] Operating Room [address] [place] [address] Ruel Gomes MD [address] [place] [address] 02/28/2025 10:05 AM EDT - 02/28/2025 12:25 PM EDT Surgery [facility] Operating Room [address] [place] [address] Ruel Gomes MD [address] [place] [address] ARTHROPLASTY, HIP, TOTAL, ANTERIOR APPROACH [65304 (CPT )] 03/15/2025 11:00 AM EDT Office Visit Medical Office Building Surgery [facility] [address], [address] [place] [address] Tamica Orta PA [address] [place] [address] 04/12/2025 11:20 AM EDT Office Visit Medical Office Building Surgery [facility] [address], [address] [place] [address] Ruel Gomes MD [address] [place] [address] Scheduled Procedures Name Priority Associated Diagnoses Date/Ti me ARTHROPLASTY, HIP, TOTAL, ANTERIOR APPROACH Arthritis of left hip 02/28/2025 10:05 AM EDT Health Maintenance Due Date Last Done Comments [facility]-Depression Screening 1965 [facility]-HIV Screening 1965 [facility]-Hepatitis C Screening 1965 [facility]-Medicare Annual Wellness (AWV) 1965 [facility]-Infant/Child/Adol SDOH Screenings 1965 [facility]- SDOH Screenings 1985 [facility]-Adult SDOH Screenings 1985 [facility]-Hepatitis B Vaccines (1 of 3 - 19+ 3-dose series) 1986 CT Colonography 2012 Colonoscopy 2012 FIT-DNA 2012 FIT 2012 FOBT 2012 Sigmoidoscopy 2012 [facility]-Colorectal Cancer Screening 2012 [facility]-Pneumococcal Vaccine: 50+ Years (1 of 1 - PCV) 2017 [facility]-Zoster Vaccines (1 of 2) 2017 UPP-[id number]-42 Vaccine (1 - season) 2024 [facility]-Influenza Vaccine (#1) 02/21/202505/04, 03/17/2019, 03/16/2018, Additional history exists [facility]-DTaP,Tdap,and Td Vaccines (2 - Td or Tdap) 11/06/2025 11/07/2015 [facility]-Breast Cancer Screening 03/29/2026 100 12/2023, 03/29/2024, 02/04/2023, Additional history exists [facility]-Cervical Cancer Screening Discontinued [facility]-HPV/Cotest Discontinued 01/17/2011 [facility]-Pap Smear Discontinued 01/17/2011 [facility]-Hepatitis A Vaccines Aged Out 06/03/2018 No longer eligible based on patient's age to complete this topic [facility]-Obesity Intervention Completed 025, 01/18/2025, 10/26/2024, Additional history exists HPV Vaccines Aged Out No longer eligi ble based on patient's age to complete this topic [facility]-HIB Vaccines Aged Out No longer e ligible based on patient's age to complete this topic [facility]-IPV Vaccines Aged Out No longer e ligible based on patient's age to complete this topic [facility]-Rotavirus Vaccines Aged Out No lo nger eligible based on patient's age to complete this topic Goals Goal Patient Goal Type Associated Problems Recent Progress Patient-Stated? Author Autogenerat ed Goal Care Plan Autogenerated Problem No Zohreh Kennedy Autogenerat ed Goal Care Plan Autogenerated Problem No Zohreh Kennedy Medical Devices Implanted Type Area Electronic Prepress System Operator Device Identifier Shelf Expiration Date Model / Serial / Lot Liner Or3o Dual Mbility 38 50 - [id number] Implanted:Qty: 1 on 12/27/2024 by Ruel Gomes MD at [facility] Right: Hip [employer]-[id number] 06/29/2034 [id number] / / [id number] Chg Shell R3 3 Hole Acet 50mm - [id number] Implanted:Qty: 1 on 12/27/2024 by Reul Gomes MD at [facility] Right: Hip [employer]-[id number] 04/10/2034 [id number] / / [id number] Chg Screw Ref Spher Head 35mm - [id number] Implanted:Qty: 1 on 12/27/2024 by Ruel Gomes MD at [facility] Right: Hip [employer]-[id number] 08/18/2034 [id number] / / [id number] Chg Screw Ref Spher Head 25mm - [id number] Implanted:Qty: 1 on 12/27/2024 by Ruel Gomes MD at [facility] Right: Hip [employer]-[id number] 07/28/2034 [id number] / / [id number] Liner Or3o Dual Mbility Xlpe 28/38 - [id number] Implanted:Qty: 1 on 12/27/2024 by Ruel Gomes MD at [facility] Right: Hip [employer]-[id number] 08/06/2034 [id number] / / [id number] Chg Head Oxinium Fem 06/05 28m - [id number] Implanted:Qty: 1 on 12/27/2024 by Ruel Gomes MD at [facility] Right: Hip [employer]-[id number] 06/01/2033 [id number] / / [id number] Polarstem Cementless Tiha 3 - [id number] Implanted:Qty: 1 on 12/27/2024 by Ruel Gomes MD at [facility] Right: Hip [employer]-[id number] 03/04/2031 [id number] / / [id number] Procedures Procedure Name Priority Date/Time Associated Diagnosis Comments XR PELVIS 1 OR 2 VIEWS Routine 02/08/2025 2:12 PM EDT S/P total right hip arthroplasty XR HIP RIGHT 2 OR 3 VIEWS STAT 12/27/2024 12:32 PM EDT FL LESS THAN 1 HOUR (NON-REPORTABLE) Routine 12/27/2024 11:31 AM EDT SURGICAL PATHOLOGY EXAM Routine 12/27/2024 10:57 AM EDT Unilateral primary osteoarthritis, right hip PB ANESTHESIA PLACEHOLDER Routine 12/27/2024 10:28 AM EDT OR AN ELECTIVE ENDOTRACHEAL AIRWAY Routine 12/27/2024 10:28 AM EDT OR TOTAL HIP ARTHROPLASTY 12/27/2024 10:06 AM EDT Unilateral primary osteoarthritis, right hip ANESTHESIA ULTRASOUND GUIDED Routine 12/27/2024 7:40 AM EDT CBC W/O DIFFERENTIAL Routine 12/14/2024 2:31 PM EDT Hip pain, right Unilateral primary osteoarthritis, right hip BASIC METABOLIC PANEL, PLASMA Routine 12/14/2024 2:31 PM EDT Hip pain, right Unilateral primary osteoarthritis, right hip ALBUMIN, PLASMA Routine 12/14/2024 2:31 PM EDT Hip pain, right Unilateral primary osteoarthritis, right hip HEMOGLOBIN A1C Routine 12/14/2024 2:31 PM EDT Hip pain, right Unilateral primary osteoarthritis, right hip ECG ADULT Routine 12/14/2024 2:24 PM EDT Preop examination CYTO DATA CONVERSION Routine 01/17/2011 12:00 AM EDT from Last 3 Months or Most Recently Relevant to Health Maintenance Results * XR Pelvis 1 or 2 [...] Lee MD on 02/08/2025 2:34 PM Tamica zlmartha PENA IMG XR PROCEDURES Final Resul t * XR Hip Right 2 or 3 [...] AM EDT) Case Report Surgical Pathology Case: [id number] Authorizing Provider: Ruel Gomes MD Collected: 12/27/2024 1057 Ordering Location: [facility] Operating Room Received: 12/27/2024 1241 Pathologist: No Keita MD Specimen: Hip, Right, right hip bone 02/09/2025 2:16 PM EDT [facility] Final Diagnosis A. BONE, RIGHT FEMORAL HEAD; RESECTION: - DEGENERATIVE JOINT DISEASE; GROSS ONLY ASSESSMENT. 02/09/2025 2:16 PM EDT [facility] at 1416 EDT Clinical Information Unilateral primary osteoarthritis, right hip [M16.11] 02/09/2025 2:16 PM EDT [facility] Gross Description A. RIGHT HIP BONE Received in formalin labeled r ight hip bone , is an irregularly-sha ped [...] diagnosis. Batool Sanchez 02/09/2025 2:16 PM EDT [facility] Note: A resident was involved in the service. I attest I examined the relevant preparations for the specimens and confirmed the diagnosis or interpretation. 02/09/2025 2:16 PM EDT [facility] Bone Right hip region structure / Unknown 12/27/2024 10:57 AM EDT 12/27/2024 12:41 PM EDT Comment:Pre-op diagnosis: Unilateral primary osteoarthritis, right hip [M16.11] us Ruel Gomes MD LAB PATHOLOGY ORDERABLES Fin al Result Performing Organization Address City/State/[facility] Co de Phone Number [facility] [address] [place] [address] * OR AN ELECTIVE ENDOTRACHEAL AIRWAY, PB ANESTHESIA PLACEHOLDER [...] Matos DO ANESTHESIA ORDERABLES Final Result * CBC W/O Differential (12/14/2024 2:31 PM EDT) WBC Count 4.95 3.70 - 10.30 10*3/uL LAB HEMATOLOGY METHOD 12/14/2024 5:28 PM EDT [facility] RBC Count 5.08 3.90 - 5.20 10*6/uL LAB HEMATOLOGY METHOD 12/14/2024 5:28 PM EDT [facility] HGB 14.1 11.2 - 15.7 g/dL LAB HEMATOLOGY METHOD 12/14/2024 5:28 PM EDT [facility] HCT 44.3 34.0 - 45.0 % LAB HEMATOLOGY METHOD 12/14/2024 5:28 PM EDT [facility] Platelet Count 301 155 - 369 10*3/uL LAB HEMATOLOGY METHOD 12/14/2024 5:28 PM EDT [facility] MCV 87 79 - 98 fL LAB HEMATOLOGY METHOD 12/14/2024 5:28 PM EDT [facility] MCH 27.8 26.0 - 32.0 pg LAB HEMATOLOGY METHOD 12/14/2024 5:28 PM EDT [facility] MCHC 31.8 30.7 - 35.5 g/dL LAB HEMATOLOGY METHOD 12/14/2024 5:28 PM EDT [facility] RDW 12.7 11.5 - 14.5 % LAB HEMATOLOGY METHOD 12/14/2024 5:28 PM EDT [facility] MPV 10.3 8.8 - 12.5 fL LAB HEMATOLOGY METHOD 12/14/2024 5:28 PM EDT [facility] nRBC 0.0 <=0.0 per 100 WBCs LAB HEMATOLOGY METHOD 12/14/2024 5:28 PM EDT [facility] Blood Venous blood specimen / Unknown Venipuncture / Unknown 12/14/2024 2:31 PM EDT 12/14/2024 2:31 PM EDT us Ruel Gomes MD LAB BLOOD ORDERABLES Final R esult Performing Organization Address [facility] de Phone Number [facility] [address] [place] [address] * Hemoglobin A1c (12/14/2024 2:31 PM EDT) Hemoglobin A1c 5.6 <5.7 % 12/14/2024 7:50 PM EDT [facility] Blood Venous blood specimen / Unknown Venipuncture / Unknown 12/14/2024 2:31 PM EDT 12/14/2024 2:31 PM EDT Narrative [facility] - 12/14/2024 7:50 PM EDT HA1C Interpretive Data: Diagnosis of Diabetes: Diabetic > or = 6.5% Pre-diabetic 5.7 to 6.4% Non-diabetic < or = 5.6% Glycemic Targets for Type I and Type II Diabetics: Non- Adults <7.0% Adults <6.0% Children and Adolescents <7.5% Source: [place] [employer]. Standards of medical care in diabetes,2017. Diabetes Care.2017:40 (suppl 1):S1-S135. us Ruel Gomes MD LAB BLOOD ORDERABLES Final R esult Performing Organization Address [facility] Co de Phone Number [facility] [address] [place] [address] * Albumin, Plasma (12/14/2024 2:31 PM EDT) Albumin, Plasma 4.5 3.5 - 5.2 g/dL 12/14/2024 5:47 PM EDT [facility] Blood Venous blood specimen / Unknown Venipuncture / Unknown 12/14/2024 2:31 PM EDT 12/14/2024 2:31 PM EDT Ruel Gomes MD LAB BLOOD ORDERABLES Final R esult [facility] [address] [place] [address] * (ABNORMAL) Basic metabolic panel (12/14/2024 2:31 PM EDT) Pathologist [facility] Glucose, Plasma 87 74 - 99 mg/dL 12/14/2024 5:47 PM EDT [facility] BUN, Plasma 11 7 - 21 mg/dL 12/14/2024 5:47 PM EDT [facility] Creatinine, Plasma 0.59(L) 0.60 - 1.10 mg/dL 12/14/2024 5:47 PM EDT [facility] BUN/Creatinine Ratio 19 12/14/2024 5:47 PM EDT [facility] Sodium, Plasma 142 136 - 145 mmol/L 12/14/2024 5:47 PM EDT [facility] Potassium, Plasma 4.6 3.6 - 4.9 mmol/L 12/14/2024 5:47 PM EDT [facility] Chloride, Plasma 104 97 - 107 mmol/L 12/14/2024 5:47 PM EDT [facility] CO2, Plasma 26 22 - 29 mmol/L 12/14/2024 5:47 PM EDT [facility] Anion Gap 12 6 - 16 mmol/L 12/14/2024 5:47 PM EDT [facility] Total Calcium, Plasma 9.5 8.9 - 10.2 mg/dL 12/14/2024 5:47 PM EDT [facility] eGFRcr 105.3 mL/min/1.7 3m*2 12/14/2024 5:47 PM EDT [facility] Comment:Reported eGFRcr in m L/min/1.73m2 is based the CKD-EPI 2020 equation that does not use a race coefficient. Blood Venous blood specimen / Unknown Venipuncture / Unknown 12/14/2024 2:31 PM EDT 12/14/2024 2:31 PM EDT us Ruel Gomes MD LAB BLOOD ORDERABLES Final R esult Performing Organization Address [facility] de Phone Number [facility] [address] [place] [address] * ECG Adult (Now - Performed in your clinic) (12/14/2024 2:24 PM EDT) EKG DIAGNOSIS CLASS Normal MUSE ECG Ventricular Rate 84 BPM MUSE ECG Atrial Rate 84 BPM MUSE ECG OR Interval 150 ms MUSE ECG QRSD Interval 72 ms MUSE ECG QT Interval 382 ms MUSE ECG QTC Interval 451 ms MUSE ECG P [place] 36 degrees MUSE ECG R [place] 18 degrees MUSE ECG T Wave [place] 32 degrees MUSE ECG Diagnosis Normal sinus rhythm MUSE ECG Diagnosis Normal ECG MUSE ECG Diagnosis MUSE ECG Diagnosis Confirmed by Basim Salgado ([id number]) on 12/14/2024 4:57:30 PM MUSE ECG 12/14/2024 2:24 PM EDT 12/14/2024 4:57 PM EDT us Milana Morgan APRN ECG ORDERABLES Final Res ult Performing Organization Address [facility] Co de Phone Number MUSE ECG * Cytology (01/17/2011 12:00 AM EDT) Thyroid fine needle aspirate specimen (specimen) 01/17/2011 01/17/2011 10:41 AM EDT Narrative [facility] - 01/18/2011 11:30 AM EDT [facility] MR #: [id number] [facility] [place], [place] [address] 1965 (Age: 45) FW Collect Date: 01/17/2011 00:00 Receipt Date: 01/17/2011 10:41 Page 1 DEPARTMENT OF PATHOLOGY AND LABORATORY MEDICINE CYTOPATHOLOGY REPORT Email: [email or web address] ATTENDING MD/Practitioner: Courtney Anne MD Service: [facility] Location: 3IR OTHER MD(S): Anjel Armando MD Reported: 01/18/2011 11:30 Collected: 01/17/2011 00:00 DIAGNOSIS ULTRASOUND GUIDED FNA, RIGHT THYROID: - BENIGN; ABUNDANT COLLOID AND FOLLICULAR CELLS, MOST CONSISTENT WITH COLLOID NODULE OR GOITER. Electronically Signed Out Todd Arriaza MD PROCEDURES/ADDENDA GROSS DESCRIPTION: Hold needle rinse fluid. CLINICAL INFORMATION: CLINICAL DIAGNOSIS FNA Right / isthmus thyroid nodule 1.5 cm US / FNA performed by: Dr. Eugenie Armando Immediate evaluation performed by: Dr. Hay Arriaza PASS # 1-2: colloid & few follicular groups 3: colloid & follicular groups, adequate This service has been rendered in part by a resident. A pathologist has personally reviewed the slides/tissue and has rendered and is responsible for the diagnosis that appears on the report. SPECIMEN DESCRIPTION: A: FNA RIGHT THYROID, ULTRASOUND GUIDED DIFF-QUIK x 3, PAP STAIN x 3 ICD: 241.0 NONTOXIC UNINODULAR GOITER (THYROID NODULE) 240.9 GOITER NOS F: A; 25740 ASP INTER, 42672, [address]288, [address]997 SNOMED CODES: A; [id number] A resident has participated in this service. A pathologist has performed and is responsible for the reported pathologic evaluation. us Lionel Anne MD LAB PATHOLOGY ORDERABLES Final R esult [facility] from Last 3 Months or Most Recently Relevant to Health Maintenance Additional Health Concerns Active Problems Noted Date Diagnosed Date Autogenerated Problem 10/27/2024 Autogenerated Problem 02/08/2025 [place] [address] Advance Directives * Full Code (Latest Code Status on File) Date Activated Date Inactivated Comments 12/27/2024 10:52 AM 12/28/2024 3:04 PM Question Answer Comments I have reviewed the capacity from the link above and, if needed, have updated to appropriate status: Yes Care Teams Computer Security Specialist Relationship Specialty Start Date End Date Ruel Levi MD [address] [place] [id number] PCP - General 11/03/20
--- OUTSIDE RECORDS SUMMARY | 2025-02-17 13:22 | XMS_ITS | Clinical Summary ---
Author Organization [facility] Address [address] [place] [address] Phone Care Team Providers Care Seismic Prospecting Supervisor Name Role Phone Unavailable Primary Care Provider Unavailabl e Allergies Active Allergy Reactions Criticality Noted Date Comments Eletriptan Shortness Of Breath 02/05/2021 Medications gabapentin (NEURONTIN) 300 mg Oral CapsuleIndicati ons:neuropathic pain Take 300 mg by mouth 2 times daily. Indications: neuropathic pain Active diazePAM (VALIUM) 2 mg Oral Tablet Take 0.5 mg by mouth once. Active traMADoL (ULTRAM) 50 mg Oral TabletIndicatio ns:pain Take 50 mg by mouth as needed for Pain. Indications: pain Active multivitamin, stress formula (ALLBEE VIT WITH C & B COMPLEX) Oral Tablet Take 1 Tablet by mouth daily. Active Surgical History Surgery Date Site/Laterality Comments LUMBAR FUSION 06/23/2011 - 06/22/2012 CERVICAL FUSION 06/23/2007 - 06/22/2008 HYSTERECTOMY BREAST SURGERY breast reduction ROTATOR CUFF REPAIR 06/23/2009 - 06/22/2010 FOOT SURGERY 06/23/2019 - 06/22/2020 STOMACH SURGERY gastric sleeve FL MYELOGRAM LUMBAR 02/05/2021 FL MYELOGRAM LUMBAR 02/05/2021 EDG XRAY Social History Tobacco Use Types Packs/Day Years Used Date Smoking Tobacco: Never Smokeless Tobacco: Never Alcohol Use Standard Drinks/Week Comments Not Currently 0 (1 standard drink = 0.6 oz pur e alcohol) Comments Unknown Sex and Gender Information Value Date Recorded Sex Assigned at Not on file Legal Sex Female 11:19 AM EDT Gender Identity Not on file Sexual Orientation Not on file Obstetrics History Last Filed Vital Signs Vital Sign Reading Time Taken Comments Blood Pressure 133/68 02/05/2021 12:48 PM EDT Pulse 76 02/05/2021 12:48 PM EDT Temperature 36.8 C (98.3 F) 02/05/2021 11:04 AM EDT Respiratory Rate 16 02/05/2021 12:48 PM EDT Oxygen Saturation 99% 02/05/2021 12:48 PM EDT Inhaled Oxygen Concentration - - Weight 72.6 kg (160 lb) 02/05/2021 11:04 AM EDT Height 162.6 cm (5' 4 ) 02/05/2021 11:04 AM EDT Body Mass Index 27.46 02/05/2021 11:04 AM EDT Plan of Treatment Health Maintenance Due Date Last Done Comments Wellness Exam Medicare 1970 Hepatitis B Vaccine (1 of 3 - 19+ 3-dose series) 1986 Cervical Cancer Screening 1988 Pap Smear 1988 HPV/Pap Cotest 1997 Cologuard 2012 Colon Cancer Screening 2012 Colonoscopy 2012 FIT 2012 Sigmoidoscopy 2012 Virtual Colonography 2012 Pneumococcal Vaccine 50+ (1 of 1 - PCV) 2017 Zoster (1 of 2) 2017 Breast Cancer Screening 09/07/2022 09/07/2020 COVID-19 Vaccine (1 - 2023- season) 2024 Influenza Vaccine (#1) 2025 0, 03/17/2019, 03/16/2018, Additional history exists DTaP/TDaP/Td (2 - Td or Tdap) 11/06/2025 11/07/2015 Meningococcal B Vaccine Aged Out No l onger eligible based on patient's age to complete this topic Insurance [employer] MEDICARE PPO REPLACE MR
--- OUTSIDE RECORDS SUMMARY | 2025-02-17 13:22 | XMS_ITS | Patient Health Record ---
Author Organization [facility] Address [address] [place] [address] Care Team Providers Care Machine Molder Squeeze Name Role Phone Abby Quinones Unavailable [phone] Allergies Allergen (clinical drug ingredient) Drug/Non Drug Allergy documented on EMR Reaction Allergy Type Onset Date Status eletriptan RELPAX (uncoded) Unspecified Allergy 03/05/2013 Active Reason For Referral No Information Problems Problem Type SNOMED Code ICD Code Onset Dates Problem Status W/U Status Risk Notes Problem Abnormal weight gain (R63.5) 03/05/2013 Active confirmed WEIGHT GAIN Plan Of Treatment No Information Medical (General) History Medical History History ICD Code none noted ERGOCALCIFEROL 18842 UNIT ORAL CAPSULE PHENTERMINE HCL 37.5 MG ORAL TABLET LYRICA CAPSULE Surgical History Surgery Date(Month/Year) hysterectomy, cervical sx, l efr rotator cuff sx, lumbar fusion, breast reduction
--- OUTSIDE RECORDS SUMMARY | 2025-02-17 13:22 | XMS_ITS | Encounter Summary ---
Author Organization Healthcare Address [address] [place] [address] Care Team Providers Care Glazing Machine Operator Name Role Phone Ruel Levi MD Primary Care Provider [phone] Encounter Details Date Type Department Care Team (Late st Contact Info) Description 12/29/2024 Orders Only Medical Office Building [facility] [address] , [address] [place] [address] Ruel Gomes MD [address] [address] [place] [address] Social History Tobacco Use Types Packs/Day Years [...] on file documented as of this encounter Plan of Treatment Upcoming Encounters Date Type Department Care Team (Latest Contact Info) Description 02/28/2025 10:05 AM EDT Hospital Encounter [facility] [address] [place] [address] Ruel Gomes MD [address] [place] [address] 02/28/2025 10:05 AM EDT - 02/28/2025 12:25 PM EDT Surgery [facility] Operating Room [address] [place] [address] Ruel Gomes MD [address] [place] [address] ARTHROPLASTY, HIP, TOTAL, ANTERIOR APPROACH [[id number] (CPT )] 03/15/2025 11:00 AM EDT Office Visit Medical Office Building [facility] [address], [address] [place] [address] Tamica Orta PA [address] [place] [address] 04/12/2025 11:20 AM EDT Office Visit Medical Office Building [facility] [address] [facility], [address] [place] [address] Ruel Gomes MD [address] [place] [address] Scheduled Procedures Name Priority Associated Diagnoses Date/Ti me ARTHROPLASTY, HIP, TOTAL, ANTERIOR APPROACH Arthritis of left hip 02/28/2025 10:05 AM EDT documented as of this encounter Goals Goal Patient Goal Type Associated Problems Recent Progress Patient-Stated? Author Autogenerat ed Goal Care Plan Autogenerated Problem No Zohreh Kennedy documented as of this encounter Visit Diagnoses Not on filedocumented in this encounter Additional Health Concerns Active Problems Noted Date Diagnosed Date Autogenerated Problem 10/27/2024 Assessment Noted Time A fall risk assessment has been complete d for the patient 10/26/2024 1:35 PM EDT A Body Mass Index follow-up plan has been documented for the patient 12/28/2024 11:37 AM EDT documented as of this encounter Care Teams Glazing Machine Operator Relationship Specialty Start Date End Date Ruel Levi MD [address] [place] [address] PCP - General 11/03/20 documented as of this encounter
--- OUTSIDE RECORDS SUMMARY | 2025-02-17 13:22 | XMS_ITS | Encounter Summary ---
Author Organization Healthcare Address [address] [place] [address] Care Team Providers Care Extension Work Director Name Role Phone Ruel Levi MD Primary Care Provider [phone] Encounter Details Date Type Department Care Team (Latest Contact Info) Description 12/27/2024 Travel Social History Tobacco Use Types Packs/Day Years [...] Date of Assessment Author No Risk Indicated 12/27/2024 8:00 PM EDT Helga Fuentes * Question Answer Date of Assessment Author 1. Wish to be (Past 1 Month) No 025 8:00 PM EDT Helga Fuentes 2. Non-Specific Active Suici martinez Thoughts (Past 1 Month) No 12/27/2024 8:00 PM EDT Amy Fuentes 6. Suicidal Behavior (Lifetime) No 8:00 PM EDT Helga Fuentes documented as of this encounter Plan of Treatment Upcoming Encounters Date Type Department Care Team (Latest Contact Info) Description 02/28/2025 10:05 AM EDT Hospital Encounter [facility] Operating Room [address] [place] [address] Ruel Gomes MD [address] [place] [address] 02/28/2025 10:05 AM EDT - 02/28/2025 12:25 PM EDT Surgery [facility] Operating Room [address] [place] [address] Ruel Gomes MD [address] [place] [address] ARTHROPLASTY, HIP, TOTAL, ANTERIOR APPROACH [[id number] (CPT )] 03/15/2025 11:00 AM EDT Office Visit Medical Office Building [facility] [address], [address] [place] [address] Tamica Orat PA [address] [place] [address] 04/12/2025 11:20 AM EDT Office Visit Medical Office Building [facility] [address], [address] [place] [address] Ruel Gomes MD [address] [place] [address] Scheduled Procedures Name Priority Associated Diagnoses Date/Ti me ARTHROPLASTY, HIP, TOTAL, ANTERIOR APPROACH Arthritis of left hip 02/28/2025 10:05 AM EDT documented as of this encounter Goals Goal Patient Goal Type Associated Problems Recent Progress Patient-Stated? Author Autogenerat ed Goal Care Plan Autogenerated Problem No HrivmariumZohreh M documented as of this encounter Visit Diagnoses [...] documented as of this encounter Care Teams Extension Work Director Relationship Specialty Start Date End Date Ruel Levi MD [address] [place] [address] PCP - General 11/03/20 documented as of this encounter
--- OUTSIDE RECORDS SUMMARY | 2025-02-17 13:22 | XMS_ITS | Encounter Summary ---
Author Organization Healthcare Address [address] [place] [address] Care Team Providers Care Pool Finisher Name Role Phone Ruel Lvei MD Primary Care Provider [phone] Reason for Visit * Reason Onset Date Comments HCN - Patient Message 12/29/2024 Encounter Details Date Type Department Care Team ([facility] st Contact Info) Description 12/29/2024 Telephone Medical Office Building [facility] [address] [facility], [address] [place] [address] Ruel Gomes MD [address] [place] [address] HCN - Patient Message Social History Tobacco Use Types Packs/Day Years [...] on file documented as of this encounter Miscellaneous Notes * Telephone Encounter - Katiana Del Toro RN - 12/29/2024 10:29 AM EDT Called patient. Relayed Dr. Gomes's message. No further questions at this time. * Telephone Encounter - Karin Crump - 12/29/2024 9:31 AM EDT Clinical Concern/Question Reason for Call: Dr. Gomes pt. This pt had a prescription for Gabapentin but then it was canceled.She is wanting to know if that was an error and she should be taking it. She's requesting a call back from clinical. Best contact number: [phone] (mobile) Optimal time of day to reach caller: ANYTIME Additional comments/information from caller: None Note: Please do not reply to this message. Follow-up communication and further actions as a result of this message need to be communicated with the patient directly, if the patient is not active onMyChart. If the patient is active on MyChart, they will receive notification of the communication/outcome via [employer]. documented in this encounter Plan of Treatment Upcoming Encounters Date Type Department Care Team (Latest Contact Info) Description 02/28/2025 10:05 AM EDT Hospital Encounter [facility] Operating [address] [place] [address] Ruel Gomes MD [address] [place] [address] 02/28/2025 10:05 AM EDT - 02/28/2025 12:25 PM EDT Surgery [facility] Operating Room [address] [place] [address] Ruel Gomes MD [address] [place] [address] ARTHROPLASTY, HIP, TOTAL, ANTERIOR APPROACH [[id number] (CPT )] 03/15/2025 11:00 AM EDT Office Visit Medical Office Building [facility] [address] [place] [address] Tamica Orta PA [address] [place] [address] 04/12/2025 11:20 AM EDT Office Visit Medical Office Building [facility] [address] [facility], [address] [place] [address] Ruel Gomes MD [address] [place] [address] Scheduled Procedures Name Priority Associated Diagnoses Date/Ti me ARTHROPLASTY, HIP, TOTAL, ANTERIOR APPROACH Arthritis of left hip 02/28/2025 10:05 AM EDT documented as of this encounter Goals Goal Patient Goal Type Associated Problems Recent Progress Patient-Stated? Author Autogenerat ed Goal Care Plan Autogenerated Problem No HrivmariumZohreh Lenny documented as of this encounter Visit Diagnoses [...] documented as of this encounter Care Teams Pool Finisher Relationship Specialty Start Date End Date Ruel Levi MD [address] [place] [address] PCP - General 11/03/20 documented as of this encounter
--- OUTSIDE RECORDS SUMMARY | 2025-02-17 13:23 | XMS_ITS | Encounter Summary ---
Author Organization Healthcare Address [address] [place] [address] Care Team Providers Care Human Resource Statistician Name Role Phone Ruel Levi MD Primary Care Provider [phone] Reason for Visit * Reason Onset Date Comments Med Refill 01/11/2025 Encounter Details Date Type Department Care Team (Late st Contact Info) Description 01/11/2025 Refill Medical Office Building [facility] [address] [facility], [address] [place] [address] Ruel Gomes MD [address] [place] [address] Social History Tobacco Use Types [...] Encounter [facility] Operating Room [address] [place] [address] Ruel Gomes MD [address] [place] [address] 02/28/2025 10:05 AM EDT - 02/28/2025 12:25 PM EDT Surgery [facility] Operating Room [address] [place] [address] Ruel Gomes MD [address] [place] [address] ARTHROPLASTY, HIP, TOTAL, ANTERIOR APPROACH [[id number] (CPT )] 03/15/2025 11:00 AM EDT Office Visit Medical Office Building [facility] [address], [address] [place] [address] Tamica Orta PA [address] [place] [address] 04/12/2025 11:20 AM EDT Office Visit Medical Office Building [facility] [address], [address] [place] [address] Ruel Gomes MD [address] [place] [address] Scheduled Procedures Name Priority Associated [...] documented as of this encounter Care Teams Human Resource Statistician Relationship Specialty Start Date End Date Ruel Levi MD [address] [place] [address] PCP - General 11/03/20 documented as of this encounter
--- OUTSIDE RECORDS SUMMARY | 2025-02-17 13:23 | XMS_ITS | Encounter Summary ---
Author Organization Healthcare Address [address] [place] [address] Care Team Providers Care Press Feeder Name Role Phone Ruel Levi MD Primary Care Provider [phone] Reason for Referral * Consultation (Routine) - Authorized Specialty Diagnoses / Procedures Referred By Nigel yan Referred To Contact Physical Therapy Diagnoses Arthritis of left hip Ruel Gomes MD [address] [facility] [address] [place] [address] Phone: tel: fax: Referral ID Status Reason Start Date Expiration Date Visits Requested Visits Authorized [id number] Authorized Consult and Treat 02/15/2025 08/17/2026 1 1 Scheduling Instructions THIS REFERRAL IS FOR SCHEDULING PURPOSES ONLY Encounter Details Date Type Department Care Team (Late st Contact Info) Description 02/15/2025 Orders Only Medical Office Building [facility] [address] [facility], [address] [place] [address] Ruel Gomes MD [address] [facility] [address] [place] [address] Arthritis of left hip (Primary Dx) Social History Tobacco Use Types [...] Hospital Encounter [facility] Operating Room [address] [place] [address] Ruel Gomes MD [address] [place] [address] 02/28/2025 10:05 AM EDT - 02/28/2025 12:25 PM EDT Surgery [facility] Operating Room [address] [place] [address] Ruel Gomes MD [address] [place] [address] ARTHROPLASTY, HIP, TOTAL, ANTERIOR APPROACH [[id number] (CPT )] 03/15/2025 11:00 AM EDT Office Visit Medical Office Building [facility] [address] [place] [address] Tamica Orta PA [address] [place] [address] 04/12/2025 11:20 AM EDT Office Visit Medical Office Building [facility] [address], [address] [place] [address] Ruel Gomes MD [address] [place] [address] Scheduled Procedures Name Priority Associated Diagnoses Date/Ti me ARTHROPLASTY, HIP, TOTAL, ANTERIOR APPROACH Arthritis of left hip 02/28/2025 10:05 AM EDT Scheduled Referrals Name Type Priority Associated Diagnoses Order Schedule Ambulatory referral to Physical Therapy Outpatient Referral Routine Arthritis of left hip 1 Occurrences starting 02/15/2025 until 08/19/2026 documented as of this encounter Goals Goal Patient Goal Type Associated Problems Recent Progress Patient-Stated? Author Autogenerat ed Goal Care Plan Autogenerated Problem No Zohreh Kennedy Autogenerat ed Goal Care Plan Autogenerated Problem No Zohreh Kennedy documented as of this encounter Visit Diagnoses Diagnosis Arthritis of left hip- Primary Arthritis of left hip- Primary Arthritis of [...] documented as of this encounter Care Teams Press Feeder Relationship Specialty Start Date End Date Ruel Levi MD [address] [place] [address] PCP - General 11/03/20 documented as of this encounter
--- OUTSIDE RECORDS SUMMARY | 2025-02-17 13:23 | XMS_ITS | Encounter Summary ---
Author Organization [facility] Address [address] [place] [address] Care Team Providers Care Composition Molder Name Role Phone Ruel Levi MD Primary Care Provider [phone] Reason for Visit * Reason Onset Date Comments HCN - Patient Message 01/11/2025 Encounter Details Date Type Department Care Team ([facility] st Contact Info) Description 01/11/2025 Telephone Medical Office Building Surgery [facility] [address] [facility], [address] [place] [address] Ruel Gomes MD [address] [place] [address] HCN - Patient Message Social [...] encounter Miscellaneous Notes * Telephone Encounter - Erin Casey RN - 01/11/2025 2:19 PM EDT Called patient. Informed patient that she can drive when she is completely off the walker and completely off narcotics. Patient states she is off of both and will discuss with her physical therapist.Denies further needs. * Telephone Encounter - Donna Mckeon - 01/11/2025 1:27 PM EDT Clinical Concern/Question Reason for Call: Dr Eliseo patient is requesting a call back. She would like to know if she can start driving short distances. Best contact number: [phone] (home) Optimal time of day to reach caller: ANYTIME Additional comments/information from caller: None Note: Please do not reply to this message. Follow-up communication and further actions as a result of this message need to be communicated with the patient directly, if the patient is not active onMyChart. If the patient is active on MyChart, they will receive notification of the communication/outcome via [employer]. documented in this encounter Plan of Treatment Upcoming Encounters Date Type Department Care Team (Latest Contact Info) Description 02/28/2025 10:05 AM EDT Hospital Encounter [facility] S Operating Room [address] [place] [address] Ruel Gomes MD [address] [place] [address] 02/28/2025 10:05 AM EDT - 02/28/2025 12:25 PM EDT Surgery [facility] Operating [address] [place] [address] Ruel Gomes MD [address] [place] [address] ARTHROPLASTY, HIP, TOTAL, ANTERIOR APPROACH [[id number] (CPT )] 03/15/2025 11:00 AM EDT Office Visit Medical Office Building [facility] [address], [address] [place] [address] Tamica Orta PA [address] [place] [address] 04/12/2025 11:20 AM EDT Office Visit Medical Office Building [facility] [address] [facility], [address] [place] [address] Ruel Gomes MD [address] [place] [address] Scheduled Procedures Name Priority Associated Diagnoses Date/Ti me ARTHROPLASTY, HIP, TOTAL, ANTERIOR APPROACH Arthritis of left hip 02/28/2025 10:05 AM EDT documented as of this encounter Goals Goal Patient Goal Type Associated Problems Recent Progress Patient-Stated? Author Autogenerat ed Goal Care Plan Autogenerated Problem No Brent Zohreh M documented as of this encounter Visit [...] documented as of this encounter Care Teams Composition Molder Relationship Specialty Start Date End Date Ruel Levi MD [address] [place] [address] PCP - General 11/03/20 documented as of this encounter
--- OUTSIDE RECORDS SUMMARY | 2025-02-17 13:23 | XMS_ITS | Encounter Summary ---
Author Organization Healthcare Address [address] [place] [address] Care Team Providers Care Informatica Name Role Phone Ruel Levi MD Primary Care Provider [phone] Encounter Details Date Type Department Care Team (Latest Contact Info) Description 02/08/2025 Travel Social History Tobacco Use Types Packs/Day [...] Description 02/28/2025 10:05 AM EDT Hospital Encounter [facility] S Operating Room [address] [place] [address] Ruel Gomes MD [address] [facility] [address] [place] [address] 02/28/2025 10:05 AM EDT - 02/28/2025 12:25 PM EDT Surgery [facility] Operating [address] [place] [address] Ruel Gomes MD [address] [facility] [address] [place] [address] ARTHROPLASTY, HIP, TOTAL, ANTERIOR APPROACH [[id number] (CPT )] 03/15/2025 11:00 AM EDT Office Visit Medical Office Building [facility] [address], [address] [place] [address] Tamica Orta PA [address] [place] [address] 04/12/2025 11:20 AM EDT Office Visit Medical Office Building [facility] [address], [address] [place] [address] Ruel Gomes MD [address] [place] [address] Scheduled Procedures Name Priority Associated Diagnoses Date/Ti me ARTHROPLASTY, HIP, TOTAL, ANTERIOR APPROACH Arthritis of left hip 02/28/2025 10:05 AM EDT documented as of this encounter Goals Goal Patient Goal Type Associated Problems Recent Progress Patient-Stated? Author Autogenerat ed Goal Care Plan Autogenerated Problem No HrZohreh javier Autogenerat ed Goal Care Plan Autogenerated Problem [...] documented as of this encounter Care Teams Informatica Relationship Specialty Start Date End Date Ruel Levi MD [address] [place] [address] PCP - General 11/03/20 documented as of this encounter
--- OUTSIDE RECORDS SUMMARY | 2025-02-17 13:23 | XMS_ITS | Clinical Summary ---
Author Organization [facility] Address [address] [place] [id number] Care Team Providers Care Adding Machine Servicer Name Role Phone Ruel Levi MD Primary Care Provider [phone] Allergies Active Allergy Reactions Criticality Noted Date Comments Gabapentin Other (See Comments) 03/09/2019 VISION CHANGES Eletriptan Hydrobromide Other (See Comments) NUMBNESS -TINGLING ALL OVER Medications diazePAM (VALIUM) 5 MG tablet Take 5 mg by mouth Every 12 (Twelve) Hours As Needed for Anxiety. Active meloxicam (MOBIC) 15 MG tablet Take 15 mg by mouth Every Night. Active amLODIPine (NORVASC) 5 MG tablet Take 5 mg by mouth Every Night. Active cholecalciferol (VITAMIN D3) 1000 units tablet Take 1,000 Units by mouth Daily. Active metFORMIN (GLUCOPHAGE) 500 MG tablet Take 500 mg by mouth 2 (Two) Times a Day With Meals. HASN'T STARTED IT YET Active Family History Medical History Relation Name Comments Breast cancer Sister Ovarian cancer Neg Hx Relation Name Status Comments Sister Social History Tobacco Use Types Packs/Day Years Used Date Smoking Tobacco: Never Smokeless Tobacco: Never Alcohol Use Standard Drinks/Week Comments No 0 (1 standard drink = 0.6 oz pur e alcohol) AUDIT-C Answer Date Recorded Frequency of Alcohol Consumption Never 03/09/2019 Average Number of Drinks Not on file 019 Frequency of Binge Drinking Not on file 02/21 Abuse Screen Answer Date Recorded Unsafe at Home or Work/School Not on file Feels Threatened by Someone? Not on file 02/2023 Does Anyone Keep You from Co ntacting Others or Doint Things Outside the Home? Not on file 03/31/2023 Physical Sign of Abuse Present Not on file 1 Housing Stability Answer Date Recorded Current Living Arrangements Not on file 02/2023 Potentially Unsafe Housing Conditions Not on clarice e 03/31/2023 Family and Community Support Answer Felice e Recorded Help with Day-to-Day Activities Not on file 03/31/2023 Lonely or Isolated Not on file 03/31/2023 Employment Answer Date Recorded Do you want help finding or keeping work or a anna marie b? Not on file 03/31/2023 Disabilities Answer Date Recorded Concentrating, Remembering, or Making Decisions Difficulty Not on file 03/31/2023 Doing Errands Independently Difficulty Not on fi le 03/31/2023 Education Answer Date Recorded Help with school or training? Not on file Preferred Language Not on file 03/31/2023 Comments No Sex and Gender Information Value Date Recorded Sex Assigned at Not on file Legal Sex Female 10:42 AM EDT Gender Identity Not on file Sexual Orientation Not on file Last Filed Vital Signs Vital Sign Reading Time Taken Comments Blood Pressure 130/78 03/10/2019 6:00 PM EDT Pulse 80 03/10/2019 6:00 PM EDT Temperature 36.7 C (98 F) 03/10/2019 5:30 PM EDT Respiratory Rate 17 03/10/2019 6:00 PM EDT Oxygen Saturation 92% 03/10/2019 6:00 PM EDT Inhaled Oxygen Concentration - - Weight 98.9 kg (218 lb 0.6 oz) 03/09/2019 3:29 P M EDT Height 162.6 cm (5' 4 ) 03/09/2019 3:29 PM EDT Body Mass Index 37.43 03/09/2019 3:29 PM EDT Plan of Treatment Health Maintenance Due Date Last Done Comments Annual Gynecologic Pelvic an d Breast Exam 1967 COLOGUARD 2012 COLON CANCER SCREENING 5 YEA R SIGMOIDOSCOPY 2012 COLONOSCOPY 2012 [address] CANCER SCREENING 2012 CT COLONOGRAPHY 2012 FECAL OCCULT BLOOD TEST 2012 FIT Testing (1 year) 2012 Pneumococcal Vaccine 50+ (1 of 1 - PCV) 2017 ZOSTER VACCINE (1 of 2) 2017 ANNUAL WELLNESS VISIT 03/09/2019 HEPATITIS C SCREENING 03/09/2019 COVID-19 Vaccine (1 - 2023-2 5 season) 2024 INFLUENZA VACCINE 03/23/2025 05/04/2020, , 03/16/2018, Additional history exists TDAP/TD VACCINES (2 - Td or Tdap) 11/06/2025 016 MAMMOGRAM 03/29/2026 03/29/2024, 01/21, 09/07/2020, Additional history exists Medical Devices Implanted Type Area Monument Setter Helper Device Identifier Shelf Expiration Date Model / Serial / Lot Stimulator Procedures Procedure Name Priority Date/Time Associated Diagnosis Comments MAMMO DIAGNOSTIC DIGITAL TOMOSYNTHESIS BILATERAL W CAD Routine 03/29/2024 10:21 AM EDT Mass of upper outer quadrant of left breast from Last 3 Months or Most Recently Relevant to Health Maintenance Results * Mammo Diagnostic Digital Tomosynthesis Bilateral With CAD (03/29/2024 10:21 AM EDT) Anatomical Region Laterality Modality Breast Bilateral Mammography 03/29/2024 10:1 6 AM EDT Impressions 03/29/2024 10:49 AM EDT 1. Right breast: No suspicious abnormality is seen. Recommendation is for continued routine annual screening mammogram. 2. Left breast: Benign cyst in the patient's palpable area of concern. Recommendation is for continued routine annual screening mammogram. 3. Today's findings and recommendations were discussed with the patient at the time of the examination by myself. OVERALL ASSESSMENT: BI-RADS Category 2: Benign. Recommend continued routine follow-up. This report was finalized on 03/29/2024 10:49 AM by Paola Suresh MD. Narrative 03/29/2024 10:49 AM EDT EXAM: MAMMO DIAGNOSTIC DIGITAL TOMOSYNTHESIS BILATERAL W CAD, Limited left breast ultrasound- DATE:03/29/2024 10:15 AM INDICATION: Patient is a 58-year-old female who presents for diagnostic work-up of a palpable area of concern in the left breast. Patient has history of reduction mammoplasty and prior breast biopsy. Sister with history of breast cancer. COMPARISON: Comparison is made to prior studies dating back to 08/15/2015. TECHNIQUE: 2D/3D CC and MLO views of each breast were obtained. FINDINGS: There are scattered fibroglandular densities. Right breast: No suspicious masses, calcifications, or areas of distortion are seen. Left breast: A skin triangle craig the patient's palpable area of concern. Deep to the skin marker/in close proximity to the skin marker there is a superficial circumscribed oval subcentimeter equal to low-density mass. Targeted sonographic imaging of the left breast was performed by the technologist and myself. In the patient's palpable area of concern in the 2:00 left breast 3 cm from the nipple there is a circumscribed oval anechoic mass measuring up to 4 mm. This is consistent with a cyst and correlates with the mammographic finding. Magy Partida APRN IM MAMMOGRAPHY [facility] Final Result from Last 3 Months or Most Recently Relevant to Health Maintenance Insurance Care Teams Adding Machine Servicer Relationship Specialty Start Date End Date Ruel Levi MD [address] [facility] [address] [place] [address] PCP - General 08/14/15
--- OUTSIDE RECORDS SUMMARY | 2025-02-17 13:23 | XMS_ITS | Encounter Summary ---
Author Organization [facility] Address [address] [place] [address] Care Team Providers Care Military Logistics Specialist Name Role Phone Ruel Levi MD Primary Care Provider [phone] Encounter Details Date Type Department Care Team (Latest Contact Info) Description 01/18/2025 Travel Social History Tobacco Use Types Packs/Day [...] Description 02/28/2025 10:05 AM EDT Hospital Encounter [facility] Operating Room [address] [place] [address] Ruel Gomes MD [address] [employer] [facility] [employer] [address] [place] [id number] 02/28/2025 10:05 AM EDT - 02/28/2025 12:25 PM EDT [facility] Operating [address] [place] [address] Ruel Gomes MD [address] [facility] [employer] [address] [place] [phone] ARTHROPLASTY, HIP, TOTAL, ANTERIOR APPROACH [33461 (CPT )] 03/15/2025 11:00 AM EDT Office Visit [facility] [address], [address] [place] [address] Tamica Orta PA [address] [place] [address] 04/12/2025 11:20 AM EDT Office Visit [facility] [address], [address] [place] [address] Ruel Gomes MD [address] [place] [address] Scheduled Procedures Name Priority Associated [...] documented as of this encounter Care Teams Military Logistics Specialist Relationship Specialty Start Date End Date Ruel Levi MD [address] [place] [address] PCP - General 11/03/20 documented as of this encounter
[2025-02-17 13:40] LABS: Hematocrit 37.7 % (37.0-47.0); Hemoglobin 12.2 g/dL (12.2-16.2); Mean Corpuscular HGB Conc 32.4 g/dL (31.8-35.4); Mean Corpuscular Hemoglobin 28.2 pg (27.0-31.2); Mean Corpuscular Volume 87.3 fl (81-99); Nucleated Red Blood Cells % 0 %; Platelet Count 315 K/mm3 (142-424); Red Blood Count 4.32 M/mm3 (4.20-5.40); Red Cell Distribution Width-SD 40.0 fL; White Blood Count 6.0 K/mm3 (4.8-10.8)
[2025-02-17 14:32] LABS: Chloride 106 mmol/L (98-107); Sodium 141 mmol/L (136-145)
[2025-02-17 14:33] LABS: Albumin Level 4.6 g/dl (3.5-5.0); Potassium 4.2 mmoL/L (3.5-5.1)
[2025-02-17 14:35] LABS: Anion Gap 12.2 mEq/L (5-15); Blood Urea Nitrogen 14 mg/dl (7-17); Calcium 9.5 mg/dl (8.4-10.2); Carbon Dioxide 27 mmol/L (22.0-30.0); Creatinine,Serum 0.60 mg/dl (0.52-1.04); Estimated Glomerular Filt Rate 103 ml/min (>60); GFR (African American) 125 ML/MIN (>60); Glucose 90 mg/dl (74-100)
== END 2025-02-17 23:59 | disposition home or self-care (01) ==
LOC: LAB 13:17
PROVIDERS: PCP Internal Medicine Adolescent Medicine; Visit Provider Orthopaedic Surgery Adult Reconstructive Orthopaedic Surgery
DX: M16.12 Unilateral primary osteoarthritis, left hip (principal); M25.552 Pain in left hip; Z79.899 Other long term (current) drug therapy
CPT/HCPCS: 36415; 80048; 80323; 82040; 85027

== ENCOUNTER 2025-03-22 08:00 | Outpatient (RCR) | payer MEDICARE, SELFPAY | END 2025-03-22 23:59 | disposition home or self-care (01) | LOC: PT 08:00 | PROVIDERS: Visit Provider Orthopaedic Surgery Adult Reconstructive Orthopaedic Surgery | DX: M16.12 Unilateral primary osteoarthritis, left hip (principal) | CPT/HCPCS: 97110; 97161; 97530 ==

== ENCOUNTER 2025-03-24 08:06 | Outpatient (RCR) | payer MEDICARE, SELFPAY | END 2025-03-24 23:59 | disposition home or self-care (01) | LOC: PT 08:06 | PROVIDERS: Visit Provider Orthopaedic Surgery Adult Reconstructive Orthopaedic Surgery | DX: M16.12 Unilateral primary osteoarthritis, left hip (principal) | CPT/HCPCS: 97110; 97112; 97530 ==